=== PATIENT | male | born 1945 | race Caucasian/White ===

== ENCOUNTER → 2018-09-15 12:08 | Outpatient (CLI) | payer OTHER, MEDICARE, SELFPAY | PROVIDERS: Family Provider Family Medicine; PCP Family Medicine; Visit Provider Physician Assistant | DX: T14.8XXA Other injury of unspecified body region, initial encounter (principal) | CPT/HCPCS: 87070; 87077; 87147; 87186; 87205 ==

== ENCOUNTER → 2018-09-15 13:37 | Outpatient (CLI) | payer OTHER, MEDICARE, SELFPAY ==
--- NOTE | 2018-09-15 13:41 | DI.RAD.S_ITS ---
PROCEDURE: XR FOOT LT MIN 3V INDICATIONS: deep ulcer on 3rd digit TECHNIQUE: 3 views of the foot were acquired. COMPARISON: [facility], , FOOT 3V LEFT, 10/03/2017, 11:41. FINDINGS: Bones: Erosive changes noted in in the first metatarsal, medial and intermediate cuneiforms adjacent to the first MTP joint concerning for osteomyelitis versus late Charcot joint. Cortical loss noted in the tuft of the third distal phalange concerning for osteomyelitis. Calcaneal bone spurs Soft tissues: No tibiotalar joint effusion. Achilles tendon appears normal. No soft tissue gas. Soft tissue swelling noted in the third toe concerning for infectious cellulitis. IMPRESSION: 1. Left first metatarsal phalange joint osteomyelitis versus Charcot joint. 2. Cortical loss involving the third distal phalange concerning for osteomyelitis. Dictated by: Maira Mcclure MD, PhD on 09/15/2018 at 13:59 Approved by: Maira Mcclure MD, PhD on 09/15/2018 at 14:03
--- NOTE | 2018-09-18 | DI.RAD.S_ITS ---
PROCEDURE: XR TOE LT MIN 2V INDICATIONS: INTRA OPERATIVE 3RD TOE AMPUTATION TECHNIQUE: Single view of the toes acquired. COMPARISON: [facility], , FOOT 3V LEFT, 10/03/2017, 11:41. FINDINGS: Single limited intraoperative fluoroscopic view of the left forefoot demonstrates amputation of the 3rd toe at the level of the distal interphalangeal joint. There is an associated soft tissue defect. IMPRESSION: 1. Intraoperative fluoroscopic view demonstrates distal amputation of the 3rd toe. Dictated by: Lloyd Sethi M.D. on 09/18/2018 at 19:37 Approved by: Lloyd Sethi M.D. on 09/18/2018 at 19:38
== END ==
PROVIDERS: Visit Provider Physician Assistant
DX: L97.529 Non-pressure chronic ulcer of other part of left foot with unspecified severity (principal); Z89.422 Acquired absence of other left toe(s)
CPT/HCPCS: 73630; 87186

== ENCOUNTER 2018-09-15 16:29 | Inpatient (IN) | payer OTHER, MEDICARE, SELFPAY ==
--- NOTE | 2018-09-15 | DI.ECHO.S_ITS ---
[facility] +---------+ : : [address] : : : : [id number] : : : : Phone: [phone] Echocardiogram Report + + :Name: BALWINDER SINGH Study Date: 09/17/2018 Height: 73 in : :[facility] Exam Location: [facility] Weight: 267 lb : : Gender: Male BSA: 2.4 m2 : :: 1945 Age: 72 yrs BP: 150/88 mmHg: :Reason For Study: CHF : :Ordering Physician: Constantino : :Hospitalist Performed By: Patricia Villatoro : :Referring: Jeff SALVADOR E : + + Interpretation Summary Technically difficult study. Grossly normal left ventricle size with ejection fraction 60-65%. Grade I diastolic dysfunction Mildly dilated right ventricle with borderline reduced right ventricular systolic function. Moderately dilated left atrium. Mild aortic valve sclerosis. Moderate mitral annular calcification. Mildly dilated aortic root. Procedure: A two-dimensional transthoracic echocardiogram with color flow and Doppler was performed. The study quality was technically difficult. There is no prior echocardiogram noted for this patient. The patient was in normal sinus rhythm during the exam. Left Ventricle: The left ventricle is grossly normal size. The left ventricular ejection fraction is normal. The ejection fraction is estimated to be 60-65%. There are no obvious focal wall motion abnormalities noted but poor endocardial definition reduces the sensitivity for the detection of such. Diastolic parameters suggest a relaxation abnormality of the left ventricle, consistent with probable normal filling pressures. Right Ventricle: The right ventricle is mildly dilated. Right ventricular systolic function is borderline reduced. Atria: The left atrium is moderately dilated. Right atrial size is normal. There is no Doppler evidence for an interatrial shunt. Mitral Valve: The mitral valve leaflets appear mildly thickened, but open well. There is moderate mitral annular calcification. There is trace mitral regurgitation. Aortic Valve: The aortic valve is trileaflet. There is mild aortic valve sclerosis. The aortic valve opens well. No aortic regurgitation is present. Tricuspid Valve: The tricuspid valve is normal. There is trace tricuspid regurgitation. The right ventricular systolic pressure is estimated to be at least least 30 mmHg based on an estimated right atrial pressure of 3 mm Hg. Pulmonic Valve: The pulmonic valve is not well visualized. Great Vessels: The aortic root is mildly dilated. The ascending aorta could not be visualized. The aortic arch could not be visualized. The pulmonary is not well visualized. The IVC is of normal diameter and collapses greater than 50% with a sniff. This suggests a low right atrial pressure of 3 mm Hg. Pericardium/ Pleura There is no pericardial effusion. There is no pleural effusion. MMode/2D Measurements & Calculations LVIDd: 5.1 cm LVOT diam: 2.0 cm LVIDs: 3.5 cm Ao root diam: 4.1 cm FS: 30.6 % EPSS: 0.83 cm IVSd: 0.93 cm LVPWd: 1.2 cm LV ocampo. diameter/BSA (cm/m^2): 2.1 LV sys. diameter/BSA (cm/m^2): 1.5 LA A2 area: 27.3 cm2 RA long axis: 5.4 cm LA A4 area: 29.9 cm2 RA area: 20.8 cm2 LA length (vol): 6.5 cm RA vol: 68.0 ml LA vol: 106.2 ml RA : 28.0 ml/m2 LA vol index: 43.7 ml/m2 IVC diam: 1.1 cm RVD1 (basal): 4.6 cm RVD2 (mid): 4.4 cm TAPSE: 2.2 cm Doppler Measurements & Calculations Ao V2 max: 132.0 cm/sec LVOT Max Rafiq: 92.5 cm/sec Ao V2 mean: 81.5 cm/sec LV V1 max P.4 mmHg Ao max P.0 mmHg LV V1 VTI: 19.8 cm Ao mean P.2 mmHg FERNANDO(I,D): 2.6 cm2 Ao V2 VTI: 24.4 cm FERNANDO(V,D): 2.2 cm2 sev ratio: 0.81 FERNANDO indexed to BSA (cm^2/m^2): 1.1 MV E max rafiq: 73.5 cm/sec TR max rafiq: 260.4 cm/sec MV A max rafiq: 103.1 cm/sec TR max P.1 mmHg MV E/A: 0.71 PA V2 max: 66.6 cm/sec Med Peak E' Rafiq: 6.5 cm/sec PA V2 mean: 46.1 cm/sec E/E' med: 11.4 PA mean P.95 mmHg Lat Peak E' Rafiq: 6.9 cm/sec PA pr(Accel): 29.1 mmHg E/E' lat: 10.7 E/e' average: 11.0 MV dec time: 0.15 sec SV(LVOT): 63.3 ml Electronically signed by: Davy Carrillo on Reading Physician:09/17/2018 01:01 PM
[2018-09-15 16:36] VITALS: BP 165/85; PULSE 76; RESP 16; TEMP 36.6; O2SAT 96; BMI 36.0
--- NOTE | 2018-09-15 16:48 | ED.SKABFB ---
HPI - Skin/Abscess/Foreign Bdy General Chief complaint: Skin/Abscess/Foreign Body Stated complaint: Infection in foot Time Seen by Provider: 09/15/18 16:33 Source: patient Mode of arrival: ambulatory Limitations: no limitations History of Present Illness HPI narrative: The patient is a 72-year-old male who presents with left middle toe pain and injury. He was actually sent over from the walk-in clinic concern for osteomyelitis. He said he stepped it about a month to month and a half ago he does have some neuropathy in that foot he has ignored it. However progressively it has gotten worse. He has an ulcer with erythema. In increasing pain. He has not had any fever or chills. He does have some mild erythema spreading up his foot but is very minimal. MD complaint: lesion Onset (ago): month(s) Location: L foot (Middle toe) Severity: moderate Related Data Home Medications Medication Instructions Recorded Confirmed CHOLECALCIFEROL (D3-5) 5,000 iu PO QDAY #0 10/14/11 09/15/18 COENZYME Q10 (COQ10) 300 mg PO QDAY #0 10/14/11 09/15/18 Glucosamine Sulfate (#GLUCOSAMINE) 1,500 mg PO QDAY #0 10/14/11 09/15/18 HOMEOPATHIC SUBSTANCE (SAW 1 cap PO QDAY #0 10/14/11 09/15/18 PALMETTO) Hydroxytryptophan (#5-HTP) 100 mg PO QDAY #0 10/14/11 09/15/18 MAGNESIUM (#ELITE MAGNESIUM) 1 tab PO HS #0 10/14/11 09/15/18 POTASSIUM (#POTASSIUM) 99 mg PO QDAY #0 10/14/11 09/15/18 amlodipine 10 mg PO BID #0 10/14/11 09/15/18 Previous Rx's Medication Instructions Recorded cephalexin 500 mg capsule 500 mg PO BID 10 Days #20 cap 09/15/18 mupirocin 2 % topical ointment 1 applic TOP BID #30 gram 09/15/18 sulfamethoxazole 800 1 tab PO BID 10 Days #20 tab 09/15/18 mg-trimethoprim 160 mg tablet Allergies Allergy/AdvReac Type Severity Reaction Status Date / Time No Known Drug Allergies Allergy Verified 09/15/18 16:36 Review of Systems Review of Systems ROS Unobtainable: All systems reviewed & are unremarkable except as noted in HPI and below Constitutional Denies chills, Denies fever(s), Denies lethargy and Denies weakness Cardiovascular Denies chest pain, Denies irregular heart rhythm, Denies lightheadedness, Denies palpitations, Denies dyspnea, Denies dyspnea on exertion and Denies orthopnea Respiratory Denies cough, Denies dyspnea, Denies dyspnea on exertion and Denies wheezing Gastrointestinal Gastrointestinal: Denies abdominal pain, Denies change in bowel habits, Denies diarrhea, Denies nausea and Denies vomiting Musculoskeletal Reports as per HPI and Reports numbness Integumentary/Breasts Reports as per HPI, Reports non-healing lesions, Reports erythema, Reports skin ulcer and Reports wounds Neurologic Reports numbness and Denies weakness Endocrine Denies palpitations Allergic/Immunologic Denies wheezing PFSH Medical History Hypertension (Acute) Neuropathy (Acute) Social History Smoking Status: Never smoker alcohol intake: never substance use type: does not use Exam Initial Vital Signs Initial Vital Signs: Vital Signs Temperature 97.9 F 09/15/18 16:36 Pulse Rate 76 09/15/18 16:36 Respiratory Rate 16 09/15/18 16:36 Blood Pressure 165/85 H 09/15/18 16:36 Pulse Oximetry 96 09/15/18 16:36 GENERAL: Well-appearing alert male a alert oriented x3 HEENT: Head atraumatic,EOMI, pupils reactive, neck is supple CARDIOVASCULAR: Regular rate and rhythm without murmurs, rubs or gallops. RESPIRATORY: Breath sounds equal bilaterally, no wheezes rales or rhonchi. Speaks in full sentences no difficulty ABDOMEN: Soft, nontender. Normoactive bowel sounds all 4 quadrants. No guarding or rebound. EXTREMITIES: Normal range of motion, no clubbing or edema. Neurovascularly intact. Initially wearing walking boot on left foot.-which is removed in the ED NEUROLOGICAL: No gross deficits alert and oriented SKIN: Left middle toe erythematous ulcer on the plantar side about 2 cm x 2 cm, with erythema foul smelling. Callus on the dorsal side is, erythema of entire toe Course Orders Ordered: ED Orders 09/15/18 16:45 C-Reactive Protein Quant Stat Complete Blood Count AUTO DIFF Stat Comprehensive Metabolic Panel Stat Erythrocyte Sedimentation Rate Stat Procalcitonin Stat 09/15/18 17:05 Blood Culture Stat Lactate (Lactic Acid) Stat 09/15/18 17:40 Wound Culture and Gram Stain Stat Levofloxacin (Levaquin) 750 mg in 150 mls @ 100 mls/hr IV NOW YODIT Stop: 09/15/18 18:30 Last Admin: 09/15/18 17:18 Dose: 100 mls/hr Discontinued Medications Vancomycin HCl 1,500 mg/ (Sodium Chloride) 500 mls @ 333.333 mls/hr IV NOW ONE Stop: 09/15/18 16:46 Vital Signs - 8 hr 09/15/18 16:36 Temperature 97.9 F Pulse Rate 76 Respiratory Rate 16 Blood Pressure 165/85 H Pulse Oximetry 96 MDM - Skin/Abscess/Foreign Bdy Lab Data Attestation: I reviewed the patient's lab results. Result diagrams: 09/15/18 16:45 09/15/18 16:45 Lab Results 09/15/18 09/15/18 09/15/18 Range/Units 16:45 16:45 16:45 WBC 6.2 (4.5-11.0) X10^3/uL RBC 4.47 L (4.5-5.9) X10^6/uL Hgb 13.3 L (13.5-17.5) g/dL Hct 39.6 L (41-53) % MCV 88.7 (80-100) fL MCH 29.8 (26-34) PG MCHC 33.7 (30-36) % RDW 13.6 (11.6-14.8) % Plt Count 300 (150-400) X10^3/uL Neut % (Auto) 65.2 (50-75) % Lymph % (Auto) 21.3 L (25-40) % [place] % (Auto) 7.8 (3-14) % Eos % (Auto) 5.2 H (2-4) % Baso % (Auto) 0.5 (0-2) % Neut # (Auto) 4100 (5859-2373) /uL Lymph # (Auto) 1300 (0841-8019) /uL [place] # (Auto) 500 (0-900) /uL Eos # (Auto) 300 (0-450) /uL Baso # (Auto) 0 (0-100) /uL ESR 45 H (0-15) MM/HR Sodium 140 (137-145) mmol/L Potassium 3.7 (3.4-5.1) mmol/L Chloride 104 (98-107) mmol/L Carbon Dioxide 25 (22-32) mmol/L BUN 16 (9-20) mg/dL Creatinine 0.50 L (0.66-1.25) mg/dL Estimated GFR > 60.0 (>60) mL/min BUN/Creatinine Ratio 32.0 H (6-22) Glucose 145 H (80-110) mg/dL Lactate (0.7-2.1) mmol/L Calcium 8.7 (8.4-10.2) mg/dL Total Bilirubin 0.3 (0.2-1.3) mg/dL AST 29 (17-59) IU/L ALT 36 (21-72) IU/L Alkaline Phosphatase 102 (38-126) U/L C-Reactive Protein 2.7 H (<1.0) mg/dL Total Protein 7.4 (6.3-8.2) g/dL Albumin 4.1 (3.5-5.0) g/dL Globulin 3.3 (1.7-4.1) g/dL Albumin/Globulin Ratio 1.2 (1.0-2.8) Procalcitonin < 0.05 (<0.5) ng/mL 09/15/18 Range/Units 17:05 WBC (4.5-11.0) X10^3/uL RBC (4.5-5.9) X10^6/uL Hgb (13.5-17.5) g/dL Hct (41-53) % MCV (80-100) fL MCH (26-34) PG MCHC (30-36) % RDW (11.6-14.8) % Plt Count (150-400) X10^3/uL Neut % (Auto) (50-75) % Lymph % (Auto) (25-40) % [place] % (Auto) (3-14) % Eos % (Auto) (2-4) % Baso % (Auto) (0-2) % Neut # (Auto) (4121-5423) /uL Lymph # (Auto) (0888-9255) /uL [place] # (Auto) (0-900) /uL Eos # (Auto) (0-450) /uL Baso # (Auto) (0-100) /uL ESR (0-15) MM/HR Sodium (137-145) mmol/L Potassium (3.4-5.1) mmol/L Chloride (98-107) mmol/L Carbon Dioxide (22-32) mmol/L BUN (9-20) mg/dL Creatinine (0.66-1.25) mg/dL Estimated GFR (>60) mL/min BUN/Creatinine Ratio (6-22) Glucose (80-110) mg/dL Lactate 1.0 (0.7-2.1) mmol/L Calcium (8.4-10.2) mg/dL Total Bilirubin (0.2-1.3) mg/dL AST (17-59) IU/L ALT (21-72) IU/L Alkaline Phosphatase (38-126) U/L C-Reactive Protein (<1.0) mg/dL Total Protein (6.3-8.2) g/dL Albumin (3.5-5.0) g/dL Globulin (1.7-4.1) g/dL Albumin/Globulin Ratio (1.0-2.8) Procalcitonin (<0.5) ng/mL Imaging Data XR left foot: Radiologist's impression: PROCEDURE: XR FOOT LT MIN 3V INDICATIONS: deep ulcer on 3rd digit TECHNIQUE: 3 views of the foot were acquired. COMPARISON: [facility], , FOOT 3V LEFT, 10/03/2017, 11:41. FINDINGS: Bones: Erosive changes noted in in the first metatarsal, medial and intermediate cuneiforms adjacent to the first MTP joint concerning for osteomyelitis versus late Charcot joint. Cortical loss noted in the tuft of the third distal phalange concerning for osteomyelitis. Calcaneal bone spurs Soft tissues: No tibiotalar joint effusion. Achilles tendon appears normal. No soft tissue gas. Soft tissue swelling noted in the third toe concerning for infectious cellulitis. IMPRESSION: 1. Left first metatarsal phalange joint osteomyelitis versus Charcot joint. 2. Cortical loss involving the third distal phalange concerning for osteomyelitis. Dictated by: Maira Mcclure MD, PhD on 09/15/2018 at 13:59 MDM Narrative Medical decision making narrative: Patient has osteomyelitis increased CRP with evidence on x-ray. He does not appear septic. Levaquin vancomycin ordered. Dr. Quinonez accepts patient Wound culture pending Discharge Plan Departure Patient Disposition: Admitted As Inpatient Clinical Impression: Acute osteomyelitis of toe of left foot Admit Date/Time: 09/15/18 17:36 Admit Provider: Jeff Quinonez
[2018-09-15 17:08] LABS: Add Manual Diff / Slide Review NO; Basophils Absolute Auto 0 /uL (0-100); Basophils Percent Auto 0.5 % (0-2); Eosinophils Absolute Auto 300 /uL (0-450); Eosinophils Percent Auto 5.2 % (2-4); Hematocrit 39.6 % (41-53); Hemoglobin 13.3 g/dL (13.5-17.5); Lymphocytes Absolute Auto 1300 /uL (1100-4500); Lymphocytes Percent Auto 21.3 % (25-40); Mean Corpuscular HGB Conc 33.7 % (30-36); Mean Corpuscular Hemoglobin 29.8 PG (26-34); Mean Corpuscular Volume 88.7 fL (80-100); Monocytes Absolute Auto 500 /uL (0-900); Monocytes Percent Auto 7.8 % (3-14); Neutrophils Absolute Auto 4100 /uL (1500-7000); Neutrophils Percent Auto 65.2 % (50-75); Platelet Count 300 X10^3/uL (150-400); Red Blood Cell Count 4.47 X10^6/uL (4.5-5.9); Red Cell Distribution Width 13.6 % (11.6-14.8); White Blood Cell Count 6.2 X10^3/uL (4.5-11.0)
[2018-09-15 17:15] LABS: Alanine Aminotransferase 36 IU/L (21-72); Albumin 4.1 g/dL (3.5-5.0); Albumin Globulin Ratio 1.2 (1.0-2.8); Alkaline Phosphatase 102 U/L (38-126); Aspartate Aminotransferase 29 IU/L (17-59); Bilirubin Total 0.3 mg/dL (0.2-1.3); Blood Urea Nitrogen 16 mg/dL (9-20); C-Reactive Protein Quant 2.7 mg/dL (<1.0); Calcium 8.7 mg/dL (8.4-10.2); Carbon Dioxide 25 mmol/L (22-32); Chloride 104 mmol/L (98-107); Estimated Glomerular Filt Rate > 60.0 mL/min (>60); Globulin 3.3 g/dL (1.7-4.1); Glucose 145 mg/dL (80-110); HEMOLYSIS < 15 (0-50); Potassium 3.7 mmol/L (3.4-5.1); Sodium 140 mmol/L (137-145); Total Protein 7.4 g/dL (6.3-8.2)
[2018-09-15] MEDS: levoFLOXacin 750 MG/150 ML PIGGYBACK 100 MG IV (17:18)
[2018-09-15 17:27] LABS: Procalcitonin < 0.05 ng/mL (<0.5)
[2018-09-15 17:28] LABS: Erythrocyte Sedimentation Rate 45 MM/HR (0-15)
[2018-09-15 18:04] VITALS: BP 147/81; PULSE 75; RESP 20; O2SAT 98
--- NOTE | 2018-09-15 18:33 | P.HP_ITS ---
History of Present Illness Date Patient Seen: 09/15/18 Time Patient Seen: 18:31 Chief complaint: Infection in foot Narrative: Mr. Kay is a pleasant 72 year old man who has a smelly, tender 3rd toe ulcer on his left foot. 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 He thinks that he may have stubbed the toe in the middle of the night, as he is clumsy. He admits to pain with pressure to the ulcer, but no pain at rest. The pain is localized, non radiating, and not alleviated with NSAIDS. He does not have a history of diabetes, B12 deficiency, eats a varied diet. An xray in the ED shows erosion of the bone and osteomyelitis, but he does not have a leukocytosis. He has a history of a flexor tendon release in the adjacent #2 toe. Patient History Medical History Hypertension (Acute) Neuropathy (Acute) COPD (chronic obstructive pulmonary disease) (Chronic) Depression (Chronic) Comment: Flexor tendon release left 2nd toe Tracheostomy Right knee Replacement Family & Social History Tobacco & Substance use: Smoking Status Never smoker alcohol intake never Meds Home Medications Medication Instructions Recorded Confirmed Type CHOLECALCIFEROL (D3-5) 5,000 iu PO DAILY #0 10/14/11 09/15/18 History HOMEOPATHIC SUBSTANCE (SAW 1 cap PO QDAY #0 10/14/11 09/15/18 History PALMETTO) Hydroxytryptophan (#5-HTP) 100 mg PO QDAY #0 10/14/11 09/15/18 History MAGNESIUM (#ELITE MAGNESIUM) 1 tab PO HS #0 10/14/11 09/15/18 History amlodipine 10 mg PO DAILY #0 10/14/11 09/15/18 History cephalexin 500 mg capsule 500 mg PO BID 10 Days #20 cap 09/15/18 09/15/18 Rx mupirocin 1 applic TOPICAL BID 09/15/18 09/15/18 History sulfamethoxazole 800 1 tab PO BID 10 Days #20 tab 09/15/18 09/15/18 Rx mg-trimethoprim 160 mg tablet Allergies Allergy/AdvReac Type Severity Reaction Status Date / Time No Known Drug Allergies Allergy Verified 09/15/18 16:36 Review of Systems Constitutional Constitutional: Denies body ache(s), Denies chills, Denies fatigue, Denies fever (s) and Denies headache(s) ENT Ears, Nose, Mouth, and Throat: No headache(s) Cardiovascular Cardiovascular: Denies chest pain, Denies chest pain with activity and Reports shortness of breath with activity Respiratory Respiratory: Denies chest congestion, Denies cough and Reports dyspnea on exertion Gastrointestinal Gastrointestinal: Denies abdominal pain and Denies hematochezia Genitourinary Genitourinary: Denies hematuria and Reports urinary frequency Musculoskeletal Comments: Pain with walking and to palpation of the toe. Neurologic Neurologic: Reports system reviewed and no additional complaints, except as documented and Denies headache(s) Psychiatric Psychiatric: Reports depression (He states that he cannot notice improvement when he is on Zolaft) Endocrine Endocrine: Denies fatigue Hematologic/Lymphatic Hematologic/Lymphatic: Denies easy bleeding and Denies easy bruising Exam Vital Signs (past 8 hours): - 09/15/18 16:36 09/15/18 18:04 Temperature 97.9 F Pulse Rate 76 75 Respiratory Rate 16 20 Blood Pressure 165/85 H Blood Pressure [Right Arm] 147/81 H Pulse Oximetry 96 98 Oxygen Delivery Method Room Air Const General: cooperative and well developed Nutritional Appearance: obese Orientation: alert and oriented x3 HENMT Head: normal to inspection Ears: hearing grossly normal bilaterally Nose: external nose normal Mouth: oral mucosae normal Teeth and gingiva: dentures Throat: posterior oropharynx normal Eyes General: appearance normal, both eyes and all related structures Pupils: PERRL EOM: EOM intact bilaterally Direct ophthalmoscopy: normal light reflex Neck Neck: normal visual inspection Thyroid: thyroid normal Carotids: normal carotid upstroke Chest Chest: normal inspection of the chest Resp Effort & Inspection: normal respiratory effort and able to speak in complete sentences Auscultation: clear to auscultation bilaterally, no crackles, no rales, no rhonchi and no wheezes Cardio Palpation: normal PMI Rate: regular rate Rhythm: regular rhythm Heart Sounds: S1 normal, S2 normal, no click, no gallops, no murmurs and no rubs GI Inspection: normal to inspection Palpation: soft, no hepatosplenomegaly and No guarding Percussion: normal to percussion Auscultation: normal bowel sounds Extrem Other: Roughly a 2 cm ulcer with surrounding erythema and a 0.5mm eschar deep to bone on the third left toe at the tip. There is erythema to the ankle. Bilateral pitting edema 3+ to the knee. Objective Labs Result Diagrams: 09/16/18 04:38 09/16/18 04:38 Labs: Laboratory Results - last 24 hr 09/15/18 09/15/18 09/15/18 16:45 16:45 16:45 WBC 6.2 RBC 4.47 L Hgb 13.3 L Hct 39.6 L MCV 88.7 MCH 29.8 MCHC 33.7 RDW 13.6 Plt Count 300 Neut % (Auto) 65.2 Lymph % (Auto) 21.3 L [place] % (Auto) 7.8 Eos % (Auto) 5.2 H Baso % (Auto) 0.5 Neut # (Auto) 4100 Lymph # (Auto) 1300 [place] # (Auto) 500 Eos # (Auto) 300 Baso # (Auto) 0 ESR 45 H Sodium 140 Potassium 3.7 Chloride 104 Carbon Dioxide 25 BUN 16 Creatinine 0.50 L Estimated GFR > 60.0 BUN/Creatinine Ratio 32.0 H Glucose 145 H Lactate Calcium 8.7 Total Bilirubin 0.3 AST 29 ALT 36 Alkaline Phosphatase 102 C-Reactive Protein 2.7 H Total Protein 7.4 Albumin 4.1 Globulin 3.3 Albumin/Globulin Ratio 1.2 Procalcitonin < 0.05 09/15/18 17:05 WBC RBC Hgb Hct MCV MCH MCHC RDW Plt Count Neut % (Auto) Lymph % (Auto) [place] % (Auto) Eos % (Auto) Baso % (Auto) Neut # (Auto) Lymph # (Auto) [place] # (Auto) Eos # (Auto) Baso # (Auto) ESR Sodium Potassium Chloride Carbon Dioxide BUN Creatinine Estimated GFR BUN/Creatinine Ratio Glucose Lactate 1.0 Calcium Total Bilirubin AST ALT Alkaline Phosphatase C-Reactive Protein Total Protein Albumin Globulin Albumin/Globulin Ratio Procalcitonin Assessment & Plan Plan: Assessment/Plan Narrative: 1. Osteomyelitis - As shown on Xray. - IV flagyl, Vanco, Levoflaxicin for antibiotic coverage - podiatry consult - Wound culture pending 2. Neuropathy - A1C and B12 pending 3. hyperglycemia - A1c pending - serial glucose monitoring pending 3. COPD - No home medications for COPD, will address if he is symptomatic 4. Depression - Continue Zoloft once dose is clarified. 4. HTN - continue home amlodipine
[2018-09-15 18:43] VITALS: BP 156/83; PULSE 81; RESP 18; TEMP 37; O2SAT 96
[2018-09-15 18:50] VITALS: BMI 35.3
[2018-09-15] MEDS: VANCOMYCIN 1,500 MG in SODIUM CHLORIDE 0.9% 500 ML 333.333 ML IV (19:03)
[2018-09-15 19:05] LABS: Hemoglobin A1C% w Est Avg Glu 6.5 % (4.0-6.0)
[2018-09-15 20:09] LABS: Vitamin B12 385 pg/mL (239-931)
--- NOTE | 2018-09-15 20:11 | PC.NURSE ---
1829- Patient arrived via stretcher to room 102. Patient has a wound to the left foot third toe. Pictures obtained. The toe is erythemic and has a open ulcer. Patient states he injured the toe a month ago. Patient states his toe at this time is not painful, but pain is initially what brought him to the hospital. Patient getting the remainder of the IV levoquin from Emergency and then he will recieve the IV vancomycin ordered in the Emergency department. Patient advised to call for assist with getting to the bathroom and a bed cradle has been placed on the bed to keep blankets off his foot. Will monitor.
[2018-09-15] MEDS: metroNIDAZOLE 500 MG/100 ML PIGGYBACK 100 MG IV (20:59)
[2018-09-15 23:30] VITALS: O2SAT 96
[2018-09-15 23:32] VITALS: BP 133/87; PULSE 87; RESP 16; TEMP 36.9; O2SAT 96
[2018-09-16] MEDS: VANCOMYCIN 1,750 MG in SODIUM CHLORIDE 0.9% 500 ML 250 ML IV (02:59)
[2018-09-16 05:25] LABS: Add Manual Diff / Slide Review NO; Basophils Absolute Auto 0 /uL (0-100); Basophils Percent Auto 0.5 % (0-2); Eosinophils Absolute Auto 300 /uL (0-450); Eosinophils Percent Auto 6.1 % (2-4); Hematocrit 39.4 % (41-53); Hemoglobin 13.2 g/dL (13.5-17.5); Lymphocytes Absolute Auto 1500 /uL (1100-4500); Mean Corpuscular HGB Conc 33.6 % (30-36); Mean Corpuscular Hemoglobin 29.7 PG (26-34); Mean Corpuscular Volume 88.6 fL (80-100); Monocytes Absolute Auto 500 /uL (0-900); Monocytes Percent Auto 8.6 % (3-14); Neutrophils Absolute Auto 3100 /uL (1500-7000); Neutrophils Percent Auto 56.8 % (50-75); Platelet Count 276 X10^3/uL (150-400); Red Blood Cell Count 4.44 X10^6/uL (4.5-5.9); Red Cell Distribution Width 13.5 % (11.6-14.8); White Blood Cell Count 5.4 X10^3/uL (4.5-11.0)
[2018-09-16 05:32] LABS: BUN Creatinine Ratio 18.3 (6-22); Blood Urea Nitrogen 11 mg/dL (9-20); Calcium 8.5 mg/dL (8.4-10.2); Carbon Dioxide 29 mmol/L (22-32); Chloride 103 mmol/L (98-107); Estimated Glomerular Filt Rate > 60.0 mL/min (>60); Glucose 110 mg/dL (80-110); HEMOLYSIS < 15 (0-50); Magnesium 1.7 mg/dL (1.6-2.3); Potassium 3.6 mmol/L (3.4-5.1); Sodium 139 mmol/L (137-145)
[2018-09-16 05:54] LABS: Procalcitonin < 0.05 ng/mL (<0.5)
[2018-09-16 07:38] VITALS: BP 152/89; PULSE 67; RESP 16; TEMP 36.7; O2SAT 95
[2018-09-16 08:00] VITALS: O2SAT 98
[2018-09-16] MEDS: AMLODIPINE 5 MG TABLET 10 MG PO (09:11)
[2018-09-16] MEDS: ACETAMINOPHEN 325 MG TABLET 650 MG PO (09:11)
[2018-09-16] MEDS: METFORMIN HCL 500 MG TABLET PO (09:12)
--- NOTE | 2018-09-16 11:48 | CM.DANOTE ---
Discharge Planning/Care Management CM Discharge Assessment Start: 09/16/18 11:32 Freq: Status: Active Protocol: Document 09/16/18 11:32 (Rec: 09/16/18 11:48 [email or web address]) Discharge Planning Assessment Assigned Controls Designer JALIL Lo Advance Directives? No History Provided By Patient Medical Record Has Patient been admitted in last 30 No days? Prior Living Arrangements House Comment Patient resides in [place] with Spouse/Sun. 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 Is patient alert and oriented? Yes Caregiver for Another No Discharge Plan Home Transportation Arrangement Patient is hopeful to drive himself home as POV is currently at . Spouse is available to provide transportation if needed. Additional Comment Patient does not have an active PCP. PCP list was provided to patient. Comment Patient is being followed by hospitalist and surg. Dr. Siegel consulted; patient to have additional 24 of IV abx and have foot looked at again tomorrow. Patient aware of treatment plan and agreeable. Should patient require any home services lack of PCP may be a barrier. Whiteboard Updated in Patient Room with Yes name and ext. # of Controls Designer Review Status In Process Please Provide Date Initial DC 09/16/18 Assessment Was Performed Next Review Type Continued Stay Review
[2018-09-16 12:05] VITALS: BP 143/89
[2018-09-16] MEDS: VANCOMYCIN 1,500 MG in SODIUM CHLORIDE 0.9% 500 ML 333.333 ML IV (12:06)
--- NOTE | 2018-09-16 12:51 | PM.CN ---
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 He does have a remote history of previous back surgery by Dr. Solis with predominantly a right-sided radiculopathy. He noted progressive and increased pain into his left foot especially into his 3rd toe. His is a massage practitioner and she was concerned about swelling inflammation and a probable infection. He does not have a known history of diabetes but he has been monitored for it in the past. [facility] Medical History Hypertension (Acute) Neuropathy (Acute) COPD (chronic obstructive pulmonary disease) (Chronic) Depression (Chronic) Social History household members: spouse Smoking Status: Former smoker alcohol intake: never substance use type: does not use Meds Home Medications Medication Instructions Recorded Confirmed Type CHOLECALCIFEROL (D3-5) 5,000 iu PO DAILY #0 10/14/11 09/15/18 History HOMEOPATHIC SUBSTANCE (SAW 1 cap PO QDAY #0 10/14/11 09/15/18 History PALMETTO) Hydroxytryptophan (#5-HTP) 100 mg PO QDAY #0 10/14/11 09/15/18 History MAGNESIUM (#ELITE MAGNESIUM) 1 tab PO HS #0 10/14/11 09/15/18 History amlodipine 10 mg PO DAILY #0 10/14/11 09/15/18 History cephalexin 500 mg capsule 500 mg PO BID 10 Days #20 cap 09/15/18 09/15/18 Rx mupirocin 1 applic TOPICAL BID 09/15/18 09/15/18 History sulfamethoxazole 800 1 tab PO BID 10 Days #20 tab 09/15/18 09/15/18 Rx mg-trimethoprim 160 mg tablet Allergies Allergy/AdvReac Type Severity Reaction Status Date / Time No Known Drug Allergies Allergy Verified 09/15/18 16:36 Review of Systems Review of Systems Denies recent fevers or chills, notes that he has chronic numbness in bilateral feet, has not had any recent polydipsia or polyuria. Exam Vital Signs (past 8 hours): - 09/16/18 07:38 09/16/18 08:00 09/16/18 12:05 Temperature 98.1 F Pulse Rate 67 Respiratory Rate 16 Blood Pressure 152/89 H 143/89 H Pulse Oximetry 95 98 Oxygen Delivery Method Room Air Oxygen Flow Rate 0 Narrative Exam Narrative: HEENT is benign, lungs are clear, cor regular rate and rhythm, abdomen is obese and then the the benign, neck is supple, left lower extremity shows obvious fusiform swelling of the 3rd toe with mild erythema, there is moderate purulent drainage from the tip of the 3rd toe, forefoot and hindfoot is benign, adequate capillary refill, slightly diminished dorsalis pedis and posterior tibial pulse, significant numbness on in the plantar aspect of bilateral feet in a stocking distribution Objective Labs Result Diagrams: 09/16/18 04:38 09/16/18 04:38 Labs: Laboratory Results - last 24 hr 09/15/18 09/15/18 09/15/18 16:43 16:45 16:45 WBC 6.2 RBC 4.47 L Hgb 13.3 L Hct 39.6 L MCV 88.7 MCH 29.8 MCHC 33.7 RDW 13.6 Plt Count 300 Neut % (Auto) 65.2 Lymph % (Auto) 21.3 L [place] % (Auto) 7.8 Eos % (Auto) 5.2 H Baso % (Auto) 0.5 Neut # (Auto) 4100 Lymph # (Auto) 1300 [place] # (Auto) 500 Eos # (Auto) 300 Baso # (Auto) 0 ESR 45 H Sodium Potassium Chloride Carbon Dioxide BUN Creatinine Estimated GFR BUN/Creatinine Ratio Glucose Hemoglobin A1c Lactate Calcium Magnesium Total Bilirubin AST ALT Alkaline Phosphatase C-Reactive Protein Total Protein Albumin Globulin Albumin/Globulin Ratio Vitamin B12 385 Procalcitonin < 0.05 Nasal Screen MRSA (PCR) 09/15/18 09/15/18 09/15/18 16:45 16:45 17:05 WBC RBC Hgb Hct MCV MCH MCHC RDW Plt Count Neut % (Auto) Lymph % (Auto) [place] % (Auto) Eos % (Auto) Baso % (Auto) Neut # (Auto) Lymph # (Auto) [place] # (Auto) Eos # (Auto) Baso # (Auto) ESR Sodium 140 Potassium 3.7 Chloride 104 Carbon Dioxide 25 BUN 16 Creatinine 0.50 L Estimated GFR > 60.0 BUN/Creatinine Ratio 32.0 H Glucose 145 H Hemoglobin A1c 6.5 H Lactate 1.0 Calcium 8.7 Magnesium Total Bilirubin 0.3 AST 29 ALT 36 Alkaline Phosphatase 102 C-Reactive Protein 2.7 H Total Protein 7.4 Albumin 4.1 Globulin 3.3 Albumin/Globulin Ratio 1.2 Vitamin B12 Procalcitonin Nasal Screen MRSA (PCR) 09/15/18 09/16/18 09/16/18 20:29 04:38 04:38 WBC 5.4 RBC 4.44 L Hgb 13.2 L Hct 39.4 L MCV 88.6 MCH 29.7 MCHC 33.6 RDW 13.5 Plt Count 276 Neut % (Auto) 56.8 Lymph % (Auto) 28.0 [place] % (Auto) 8.6 Eos % (Auto) 6.1 H Baso % (Auto) 0.5 Neut # (Auto) 3100 Lymph # (Auto) 1500 [place] # (Auto) 500 Eos # (Auto) 300 Baso # (Auto) 0 ESR Sodium 139 Potassium 3.6 Chloride 103 Carbon Dioxide 29 BUN 11 Creatinine 0.60 L Estimated GFR > 60.0 BUN/Creatinine Ratio 18.3 Glucose 110 Hemoglobin A1c Lactate Calcium 8.5 Magnesium 1.7 Total Bilirubin AST ALT Alkaline Phosphatase C-Reactive Protein Total Protein Albumin Globulin Albumin/Globulin Ratio Vitamin B12 Procalcitonin Nasal Screen MRSA (PCR) Negative for mrsa 09/16/18 04:38 WBC RBC Hgb Hct MCV MCH MCHC RDW Plt Count Neut % (Auto) Lymph % (Auto) [place] % (Auto) Eos % (Auto) Baso % (Auto) Neut # (Auto) Lymph # (Auto) [place] # (Auto) Eos # (Auto) Baso # (Auto) ESR Sodium Potassium Chloride Carbon Dioxide BUN Creatinine Estimated GFR BUN/Creatinine Ratio Glucose Hemoglobin A1c Lactate Calcium Magnesium Total Bilirubin AST ALT Alkaline Phosphatase C-Reactive Protein Total Protein Albumin Globulin Albumin/Globulin Ratio Vitamin B12 Procalcitonin < 0.05 Nasal Screen MRSA (PCR) Left foot x-ray shows decreased cortical shadow on the 3rd toe distal phalanx. Assessment & Plan Plan: Assessment/Plan Narrative: Left foot 3rd toe infection. Probable left foot 3rd toe osteomyelitis. For recommended that we continue with IV antibiotics and a dressing change. He may benefit from a distal phalanx partial or complete excision if he fails antibiotics and dressing changes. I will ask either Dr. Mackay or Podiatry to evaluate him further tomorrow.
[2018-09-16] MEDS: HYDROCODONE/ACET 5/325 TABLET 1 TAB PO ×2 (14:27→23:31)
[2018-09-16 15:26] VITALS: BP 154/82; PULSE 76; RESP 18; TEMP 36.7; O2SAT 94
--- NOTE | 2018-09-16 16:45 | P.PN_ITS ---
Subjective Date Patient Seen: 09/16/18 Interval history: He is seen today to follow-up the osteomyelitis, diabetes mellitus type 2 and his hypertension. The CRP is 2.7 with an A1c of 6.5 and white blood count of 5.4. His B12 level is 385 the blood pressure is 152/89. The foot is looking much better. Exam Vital Signs (past 8 hours): - 09/16/18 12:05 09/16/18 15:26 Temperature 98.0 F Pulse Rate 76 Respiratory Rate 18 Blood Pressure 143/89 H 154/82 H Pulse Oximetry 94 Oxygen Delivery Method Room Air Oxygen Flow Rate 0 Narrative Exam Narrative: Alert and oriented x3 with no apparent distress. Heart is regular rate and rhythm without murmur. Lungs are clear to auscultation bilaterally. Extremities no ankle edema. Left foot diminishing redness and swelling. The adjacent toes are no longer swollen. The redness has receded from the lines marked yesterday. The 3rd toe remains swollen with yellowish drainage, an open/scabbed ulcer at the tip and redness. Objective Labs Result Diagrams: 09/16/18 04:38 09/16/18 04:38 Labs: Laboratory Results - last 24 hr 09/15/18 09/15/18 09/15/18 16:43 16:45 16:45 WBC 6.2 RBC 4.47 L Hgb 13.3 L Hct 39.6 L MCV 88.7 MCH 29.8 MCHC 33.7 RDW 13.6 Plt Count 300 Neut % (Auto) 65.2 Lymph % (Auto) 21.3 L [place] % (Auto) 7.8 Eos % (Auto) 5.2 H Baso % (Auto) 0.5 Neut # (Auto) 4100 Lymph # (Auto) 1300 [place] # (Auto) 500 Eos # (Auto) 300 Baso # (Auto) 0 ESR 45 H Sodium Potassium Chloride Carbon Dioxide BUN Creatinine Estimated GFR BUN/Creatinine Ratio Glucose Hemoglobin A1c Lactate Calcium Magnesium Total Bilirubin AST ALT Alkaline Phosphatase C-Reactive Protein Total Protein Albumin Globulin Albumin/Globulin Ratio Vitamin B12 385 Procalcitonin < 0.05 Nasal Screen MRSA (PCR) 09/15/18 09/15/18 09/15/18 16:45 16:45 17:05 WBC RBC Hgb Hct MCV MCH MCHC RDW Plt Count Neut % (Auto) Lymph % (Auto) [place] % (Auto) Eos % (Auto) Baso % (Auto) Neut # (Auto) Lymph # (Auto) [place] # (Auto) Eos # (Auto) Baso # (Auto) ESR Sodium 140 Potassium 3.7 Chloride 104 Carbon Dioxide 25 BUN 16 Creatinine 0.50 L Estimated GFR > 60.0 BUN/Creatinine Ratio 32.0 H Glucose 145 H Hemoglobin A1c 6.5 H Lactate 1.0 Calcium 8.7 Magnesium Total Bilirubin 0.3 AST 29 ALT 36 Alkaline Phosphatase 102 C-Reactive Protein 2.7 H Total Protein 7.4 Albumin 4.1 Globulin 3.3 Albumin/Globulin Ratio 1.2 Vitamin B12 Procalcitonin Nasal Screen MRSA (PCR) 09/15/18 09/16/18 09/16/18 20:29 04:38 04:38 WBC 5.4 RBC 4.44 L Hgb 13.2 L Hct 39.4 L MCV 88.6 MCH 29.7 MCHC 33.6 RDW 13.5 Plt Count 276 Neut % (Auto) 56.8 Lymph % (Auto) 28.0 [place] % (Auto) 8.6 Eos % (Auto) 6.1 H Baso % (Auto) 0.5 Neut # (Auto) 3100 Lymph # (Auto) 1500 [place] # (Auto) 500 Eos # (Auto) 300 Baso # (Auto) 0 ESR Sodium 139 Potassium 3.6 Chloride 103 Carbon Dioxide 29 BUN 11 Creatinine 0.60 L Estimated GFR > 60.0 BUN/Creatinine Ratio 18.3 Glucose 110 Hemoglobin A1c Lactate Calcium 8.5 Magnesium 1.7 Total Bilirubin AST ALT Alkaline Phosphatase C-Reactive Protein Total Protein Albumin Globulin Albumin/Globulin Ratio Vitamin B12 Procalcitonin Nasal Screen MRSA (PCR) Negative for mrsa 09/16/18 04:38 WBC RBC Hgb Hct MCV MCH MCHC RDW Plt Count Neut % (Auto) Lymph % (Auto) [place] % (Auto) Eos % (Auto) Baso % (Auto) Neut # (Auto) Lymph # (Auto) [place] # (Auto) Eos # (Auto) Baso # (Auto) ESR Sodium Potassium Chloride Carbon Dioxide BUN Creatinine Estimated GFR BUN/Creatinine Ratio Glucose Hemoglobin A1c Lactate Calcium Magnesium Total Bilirubin AST ALT Alkaline Phosphatase C-Reactive Protein Total Protein Albumin Globulin Albumin/Globulin Ratio Vitamin B12 Procalcitonin < 0.05 Nasal Screen MRSA (PCR) Assessment & Plan Plan: Assessment/Plan Narrative: 1. Osteomyelitis of distal left 3rd toe - As shown on Xray. G stain is Gram-positive cocci. - IV anco, levofloxacin for antibiotic coverage of this probable staph infection - podiatry consult discussed with Dr. Siegel - Wound culture identification pending 2. Neuropathy - A1C is 6.5 consistent with diabetes mellitus type 2. B12 level is normal. 3. hyperglycemia/prediabetes/DM 2 - A1c elevated at 6.5 - serial glucose monitoring pending - start on metformin daily 3. COPD - No home medications for COPD, will address if he is symptomatic 4. Depression - Continue Zoloft once dose is clarified. 4. HTN - continue home amlodipine. Edema has resolved.
[2018-09-16] MEDS: INSULIN ASPART 100 UNIT/ML INSULN PEN SUBCUT (17:08)
[2018-09-16 17:19] VITALS: O2SAT 96
[2018-09-16] MEDS: VANCOMYCIN 1,500 MG in SODIUM CHLORIDE 0.9% 500 ML 333 ML IV (19:39)
[2018-09-16] MEDS: levoFLOXacin 750 MG/150 ML PIGGYBACK 100 MG IV (21:05)
--- NOTE | 2018-09-16 21:45 | PC.NURSE ---
2130 - Pt up to bathroom. Reports that IV has blood in it, and may be leaking. IV site assessed, good flash, no discomfort with flush, no visible leaking. Monitor. Pt denies pain, Left foot, 3rd toe, no drainage. Erythema within marked borders. Call light in reach.
[2018-09-16 23:39] VITALS: BP 156/94; PULSE 81; RESP 18; TEMP 36.6; O2SAT 93
[2018-09-17] VITALS: O2SAT 93
[2018-09-17] MEDS: SODIUM CHLORIDE 0.9% FLUSH 10 ML IV ×3 (03:44→19:50)
[2018-09-17] MEDS: VANCOMYCIN 1,500 MG in SODIUM CHLORIDE 0.9% 500 ML 333 ML IV (03:44)
[2018-09-17 07:42] VITALS: BP 150/88; PULSE 88; RESP 16; TEMP 37.1; O2SAT 92
[2018-09-17 08:00] VITALS: O2SAT 98
[2018-09-17] MEDS: AMLODIPINE 5 MG TABLET 10 MG PO (08:51)
[2018-09-17] MEDS: METFORMIN HCL 500 MG TABLET PO (08:51)
[2018-09-17 12:00] VITALS: BP 150/88; PULSE 79; RESP 16; TEMP 36.6; O2SAT 93
--- NOTE | 2018-09-17 12:00 | CM.DPC ---
DCP Cont: Contacted patient's , Sun. Asked her about patient having a primary doctor. Stated that he had Dr. Farah, but he left the office. Asked her is another provider would be handling his care since he left. She stated that she was not sure, but [facility]. She stated that it has been about 7-8 months since patient has seen Dr. Farah. 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 She stated that he may return there. Discussed home health and significance of having a primary care provider. She stated, would depend on how he does, for he is wanting to get back to work. P: DCP to continue to follow and offer resources that patient may need. Chloe Copeland RN/[employer]
[2018-09-17] MEDS: CEFAZOLIN 2 GM/100 ML FROZ.PIGGY IV ×2 (12:22→19:48)
--- NOTE | 2018-09-17 14:41 | P.PN_ITS ---
Subjective Date Patient Seen: 09/17/18 Interval history: Mc Kay a 72-year-old male with a past medical history significant for hypertension, COPD, and peripheral neuropathy who presented from the walk-in clinic for left foot pain and was found to have osteomyelitis and was admitted for further management. Overnight: The patient was stable and there were no acute events. Today the patient is resting in bed comfortably and in no acute distress. He continues to endorse pain around his left 3rd toe. He otherwise denies headache , shortness of breath, chest pain, abdominal pain, nausea, vomiting, fever, chills, dysuria, diarrhea or constipation. He is voiding and eliminating without difficulty. He is up ambulating minimally. Exam Vital Signs (past 8 hours): - 09/17/18 07:42 09/17/18 08:00 09/17/18 12:00 Temperature 98.8 F 97.8 F Pulse Rate 88 79 Respiratory Rate 16 16 Blood Pressure 150/88 H 150/88 H Pulse Oximetry 92 98 93 Oxygen Delivery Method Room Air Oxygen Flow Rate 0 Narrative Exam Narrative: General: Older gentleman sitting in bed and in no acute distress, well- developed, well-nourished, appropriately interactive. HEENT: Normocephalic, atraumatic. External ears without defect. Pupils equal, round, and reactive to light. Anicteric sclerae, moist conjunctivae, and no lid lag. Pulmonary: Clear to auscultation bilaterally without crackles, wheezes, or rhonchi. Normal respiratory effort with no use of accessory muscles. Abdomen: Soft, bowel sounds present, nontender, nondistended. No hepatosplenomegaly or masses appreciated. Extremities: No clubbing or cyanosis. Mild erythema around left 3rd toe with callus, edema and mild pain to palpation. Left Charcot foot. Skin: Normal temperature, turgor, and texture; no rash, ulcers, or subcutaneous nodules appreciated. Neurological: Cranial nerves grossly intact. Psychiatric: Normal mood and affect. Alert and oriented to person, place, and time. Objective Labs Result Diagrams: 09/16/18 04:38 09/16/18 04:38 Assessment & Plan Plan: Assessment/Plan Narrative: Mc Kay a 72-year-old male with a past medical history significant for hypertension, COPD, and peripheral neuropathy who presented from the walk-in clinic for left foot pain and was found to have osteomyelitis and was admitted for further management. 1. Acute osteomyelitis of distal left 3rd toe, present on admission. Stable. -Left foot x-ray demonstrated osteomyelitis versus Charcot foot. Will pursue further imaging if orthopedic surgery does not pursue I&D versus amputation. -Discontinued vancomycin and levofloxacin. Per Dr. Wong of Infectious Disease, started cefazolin 2 g every 8 hr and depending upon course may need up to 3-4 weeks of IV antibiotics versus shorter course (10-14 days) if amputation is pursued. -Orthopedic surgery has been consulted. We appreciate their time and recommendations. -Wound culture grew MSSA. 2. Peripheral neuropathy, chronic, present on admission. Stable. -Hemoglobin A1C is 6.5% consistent with diabetes mellitus type 2. B12 level is normal. 3. New diagnosis of diabetes mellitus, type II, chronic, present on admission. Stable. -Initial Hemoglobin A1c elevated at 6.5%. -Serial glucose monitoring. -Continue metformin daily and low dose correctional scale insulin. 4. COPD, chronic, present on admission. Stable. -No home medications for COPD, will address if he is symptomatic. 5. Depression, chronic, present on admission. Stable. -Continue Zoloft once dose is clarified. 6. Hypertension, chronic, present on admission. Stable. -Continue home amlodipine. Disposition: Likely to discharge home with outpatient IV antibiotics (for 3-4 weeks verses shorter course if an amputation is pursued) versus [facility] facility after osteomyelitis has been addressed by Orthopedic surgery.
--- NOTE | 2018-09-17 15:06 | PM.PN.1 ---
Subjective Date Patient Seen: 09/17/18 Interval history: Patient seen bedside for left 3rd toe osteomyelitis. He has an open ulceration that appears superficial on the most distal aspect of this toe as well. No active purulent drainage at this time. There is positive edema/erythema in this toe, but according to the family this has improved. Denies fevers/chills, CP, or SOB. He is numb in this foot, so is having no pain. 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 Exam Vital Signs (past 8 hours): - 09/17/18 07:42 09/17/18 08:00 09/17/18 12:00 Temperature 98.8 F 97.8 F Pulse Rate 88 79 Respiratory Rate 16 16 Blood Pressure 150/88 H 150/88 H Pulse Oximetry 92 98 93 Oxygen Delivery Method Room Air Oxygen Flow Rate 0 Narrative Exam Narrative: WDWN NAD A&Ox3. Ulceration on the most distal aspect of the left 3rd toe that appears to be debrided recently. Callous formation on the distal aspect of his 2nd toe, and between the 3rd and 4th toes. No drainage could be expressed at this time. Objective Labs Result Diagrams: 09/16/18 04:38 09/16/18 04:38 Assessment & Plan Plan: Assessment/Plan Narrative: 1. Osteomyelitis of the left 3rd toe--dressing change BID with continuation of IV antibiotics. Pending consultation by either Dr. Hirsch or Dr. Boswell tomorrow to discuss surgical intervention. This case was also discussed with Dr. Siegel. Time Spent With Patient Time with patient: 15-24 minutes
--- NOTE | 2018-09-17 15:11 | P.PN_ITS ---
Subjective Date Patient Seen: 09/17/18 Interval history: Patient seen bedside for left 3rd toe osteomyelitis. He has an open ulceration that appears superficial on the most distal aspect of this toe as well. No active purulent drainage at this time. There is positive edema /erythema in this toe, but according to the family this has improved. Denies fevers/chills, CP, or SOB. He is numb in this foot, so is having no pain. 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 Exam Vital Signs (past 8 hours): - 09/17/18 07:42 09/17/18 08:00 09/17/18 12:00 Temperature 98.8 F 97.8 F Pulse Rate 88 79 Respiratory Rate 16 16 Blood Pressure 150/88 H 150/88 H Pulse Oximetry 92 98 93 Oxygen Delivery Method Room Air Oxygen Flow Rate 0 Narrative Exam Narrative: WDWN NAD A&Ox3. Ulceration on the most distal aspect of the left 3rd toe that appears to be debrided recently. Callous formation on the distal aspect of his 2nd toe, and between the 3rd and 4th toes. No drainage could be expressed at this time. Objective Labs Result Diagrams: 09/16/18 04:38 09/16/18 04:38 Assessment & Plan Plan: Assessment/Plan Narrative: 1. Osteomyelitis of the left 3rd toe--dressing change BID with continuation of IV antibiotics. Pending consultation by either Dr. Hirsch or Dr. Boswell tomorrow to discuss surgical intervention. This case was also discussed with Dr. Siegel. Time Spent With Patient Time with patient: 15-24 minutes
[2018-09-17 15:32] VITALS: BP 148/78; PULSE 77; RESP 20; TEMP 36.8; O2SAT 95
[2018-09-17] MEDS: LACTOBACILLUS ACIDOPHILUS TABLET 1 EACH PO (17:12)
--- NOTE | 2018-09-17 19:08 | P.CONS_ITS ---
History of Present Illness Date Patient Seen: 09/17/18 Time Patient Seen: 17:59 Chief complaint: Infection in foot Reason for consult: Osteomyelitis left 3rd toe Requesting provider: Bernarda Siegel Narrative: Patient is a 72-year-old male that presents with left foot and toe cellulitis and ulceration. Patient has an relatively new diagnosis of diabetes with hemoglobin A1c 6.5. He does have a past medical history significant for back problems and numbness and peripheral neuropathy expression involving the left foot. He has evidence of a Charcot midfoot but is unsure of this diagnosis he does report. Of trauma approximately 1 year ago. He has been using custom orthotics but not since the suppose a trauma and ft shape change to his midfoot. He has previously seen Dr. Manasa MANCINI in the past but has not seen him recently and has not sought care since he developed ulceration on his toe. 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 States he developed a blister that became an ulcer. He noticed the swelling and redness but just try to make it until he came home this weekend. Upon reporting home his noticed the swelling and erythema and encouraged him to seek care. He presented to urgent care and then was referred to the ER. CRP is 2.7. He has been treated with IV antibiotics since being in the hospital. He denies any history of vascular problems heart problems or pulmonary problems. [facility] Medical History Hypertension (Acute) Neuropathy (Acute) COPD (chronic obstructive pulmonary disease) (Chronic) Depression (Chronic) Social History household members: spouse Smoking Status: Former smoker alcohol intake: never substance use type: does not use Meds Home Medications Medication Instructions Recorded Confirmed Type CHOLECALCIFEROL (D3-5) 5,000 iu PO DAILY #0 10/14/11 09/15/18 History HOMEOPATHIC SUBSTANCE (SAW 1 cap PO QDAY #0 10/14/11 09/15/18 History PALMETTO) Hydroxytryptophan (#5-HTP) 100 mg PO QDAY #0 10/14/11 09/15/18 History MAGNESIUM (#ELITE MAGNESIUM) 1 tab PO HS #0 10/14/11 09/15/18 History amlodipine 10 mg PO DAILY #0 10/14/11 09/15/18 History cephalexin 500 mg capsule 500 mg PO BID 10 Days #20 cap 09/15/18 09/15/18 Rx mupirocin 1 applic TOPICAL BID 09/15/18 09/15/18 History sulfamethoxazole 800 1 tab PO BID 10 Days #20 tab 09/15/18 09/15/18 Rx mg-trimethoprim 160 mg tablet Allergies Allergy/AdvReac Type Severity Reaction Status Date / Time No Known Drug Allergies Allergy Verified 09/15/18 16:36 Review of Systems Review of Systems Patient dorsal swelling and pain at his left 3rd toe otherwise denies any fevers chills nausea or vomiting. Denies any shortness of breath. Denies any changes in bowels or bladder habits. Does endorse numbness that is chronic in the left lower extremity All systems reviewed & are unremarkable except as noted in HPI and below Exam Vital Signs (past 8 hours): - 09/17/18 12:00 09/17/18 15:32 Temperature 97.8 F 98.3 F Pulse Rate 79 77 Respiratory Rate 16 20 Blood Pressure 150/88 H 148/78 H Pulse Oximetry 93 95 Oxygen Delivery Method Room Air Oxygen Flow Rate 0 Narrative Exam Narrative: Alert oriented male in no acute distress sitting up in bed Respiratory exam: Unlabored on room air lungs clear to auscultation bilaterally CV exam: Regular rate and rhythm Abdominal exam: Nontender Musculoskeletal examination: Bilateral upper extremities without any gross deformities sensation grossly intact to light touch. Right lower extremity: Grossly normal alignment no swelling no erythema no signs or symptoms of infection. He demonstrates active dorsiflexion plantar flexion. 2+ dorsalis pedis and posterior tibialis pulse. No lesions. Fungal nails present. Left lower extremity: Fungal nails. Moderate pes planus deformity. Palpable dorsalis pedis pulse and posterior tibialis pulse. Brisk capillary refill. Stocking-glove peripheral neuropathy. 5/5 dorsiflexion plantar flexion. In bearing callus 2nd toe. Open ulceration left 3rd toe distal phalanx likely probes to bone. Mild drainage. No malodor. Moderate swelling. Previous cellulitis a demarcation up around the ankle but erythema appears to resolve significantly from this as there is minimal erythema around the toe but the remainder of the foot and ankle have normal appearance. Calf is soft. Dorsiflexion past neutral. Objective Labs Result Diagrams: 09/16/18 04:38 09/16/18 04:38 Assessment & Plan Plan: Assessment/Plan Narrative: 1. Acute Left foot 3rd toe distal phalanx osteomyelitis and ulceration secondary to peripheral neuropathy and diabetes 2. Charcot midfoot chronic Plan: Regarding the patient's left 3rd toe distal phalanx osteomyelitis we discussed potential treatments which would be I and D bone biopsy and intravenous antibiotics versus distal phalanx amputation a likely much shorter course of antibiotics and primary closure. Patient is elected for amputation primary closure. We will plan to do this in the next day or so hopefully tomorrow evening the patient is in the hospital. He will remain on IV antibiotics. Previous culture swabs showing gram-positive organisms. We discussed the risks benefits and alternatives to the surgical procedure. We also discussed risk for recurrence and new ulcerations with neuropathy and diabetes. The patient has good pulses and demonstrating appropriate vascular flow. We also discussed the importance of custom accommodative orthotics and diabetic shoes to prevent ulceration around the patient's Charcot foot. Patient has no current primary care provider. We discussed the importance of establishing this and good diabetic control. Patient understands and agrees with the plan. We will plan tentatively for operation tomorrow evening at 5:30 p.m. patient will need to be NPO approximately 8 hr prior to surgery. He will continue on IV antibiotics. Time Spent With Patient Time with patient: less than 15 minutes
[2018-09-17] MEDS: HYDROCODONE/ACET 5/325 TABLET 1 TAB PO (19:49)
[2018-09-18] VITALS (12 sets, daily range): BP systolic 121–159; BP diastolic 76–92; PULSE 79–108; RESP 16–20; TEMP 36.4–37.6; O2SAT 93–97; BMI 35.3
--- NOTE | 2018-09-18 | PATH_ITS ---
[facility] Accession Number: [id number] . 01 Material submitted: . PART A: LEFT THIRD TOE DISTAL PHALANX BONE PART B: LEFT THIRD TOE DISTAL PHALANX TISSUE . 02 Diagnosis: A) Bone, Left 3rd Toe, Distal Phalanx Bone, Amputation: Bone margin with remodelling lamellar bone and marrow fibrosis. No evidence of acute osteomyelitis at margin. . B) Bone, Left 3rd Toe, Distal Phalanx Tissue, Amputation: Ulcerated skin and soft tissue with reactive stromal changes. Fragments of lamellar bome with with chronic active inflammation, consistent with acute osteomyelitis. Histologically viable margins of resection. No evidence of neoplasm. [facility]09[facility]21[facility]2018 . 02 Comment: As part of routine quality consultant, Dr. Colon has reviewed this case and agrees with the above diagnosis. The findings were discussed with Dr. Kay by Dr. Stefan Mendiola on 09/21/18 at 1 PM. . 02 Electronically signed: . Stefan Mendiola MD, PhD, Pathologist NPI- [id number] . 01 Gross description: . A. Received in formalin, labeled left third toe distal phalanx bone, is a slice of bone (1.0 x 1.0 x 0.5 cm). The bone is hard and cannot be sliced with a scalpel. The resection margin is inked black. Submitted intact en face in cassette A1. Note: The bone section has been decalcified. B. Received in formalin, labeled left third toe distal phalanx tissue, is a skin and soft tissue of the tip of a toe (2.1 cm AP, 0.8 cm SI, 2.2 cm ML) with the toenail present. A osman-beyer ulcer (0.7 x 0.6 cm) involves the central anterior aspect, 0.6 cm directly beneath the toenail and 0.6 cm from the inferior skin and soft tissue resection margins. The remaining skin is osman and flaky. Ink code: black- superior; orange-inferior. Section code: (B1) skin and soft tissue resection margin; (B2) ulcer, enrollment representative. ([id number]) /[facility] . 02 Pathologist provided ICD-10: M86.9 . 02 CPT . 545278, [id number], [id number] Performed at: 01 [facility] [address] [place] [address] [id number] MD Lloyd Jackson MD Phone: [phone] Performed at: 02 [facility] [address] [place] [address] [id number] MD Marisela Colon MD Phone: [phone]
[2018-09-18] MEDS: CEFAZOLIN 2 GM/100 ML FROZ.PIGGY IV ×3 (04:18→20:14)
[2018-09-18 05:25] LABS: Add Manual Diff / Slide Review NO; Basophils Absolute Auto 0 /uL (0-100); Basophils Percent Auto 0.5 % (0-2); Eosinophils Absolute Auto 300 /uL (0-450); Eosinophils Percent Auto 3.9 % (2-4); Hematocrit 41.5 % (41-53); Lymphocytes Absolute Auto 1900 /uL (1100-4500); Lymphocytes Percent Auto 25.4 % (25-40); Mean Corpuscular HGB Conc 33.8 % (30-36); Mean Corpuscular Hemoglobin 29.9 PG (26-34); Mean Corpuscular Volume 88.5 fL (80-100); Monocytes Absolute Auto 700 /uL (0-900); Monocytes Percent Auto 8.7 % (3-14); Neutrophils Absolute Auto 4600 /uL (1500-7000); Neutrophils Percent Auto 61.5 % (50-75); Platelet Count 297 X10^3/uL (150-400); Red Blood Cell Count 4.69 X10^6/uL (4.5-5.9); Red Cell Distribution Width 13.4 % (11.6-14.8); White Blood Cell Count 7.6 X10^3/uL (4.5-11.0)
[2018-09-18 05:26] LABS: Alanine Aminotransferase 35 IU/L (21-72); Albumin 3.7 g/dL (3.5-5.0); Albumin Globulin Ratio 1.2 (1.0-2.8); Alkaline Phosphatase 86 U/L (38-126); Aspartate Aminotransferase 23 IU/L (17-59); BUN Creatinine Ratio 21.7 (6-22); Bilirubin Total 0.3 mg/dL (0.2-1.3); Blood Urea Nitrogen 13 mg/dL (9-20); Calcium 8.9 mg/dL (8.4-10.2); Carbon Dioxide 28 mmol/L (22-32); Chloride 101 mmol/L (98-107); Estimated Glomerular Filt Rate > 60.0 mL/min (>60); Globulin 3.2 g/dL (1.7-4.1); Glucose 135 mg/dL (80-110); HEMOLYSIS < 15 (0-50); Magnesium 1.7 mg/dL (1.6-2.3); Potassium 3.4 mmol/L (3.4-5.1); Sodium 138 mmol/L (137-145); Total Protein 6.9 g/dL (6.3-8.2)
--- NOTE | 2018-09-18 07:25 | PM.PN.1 ---
Subjective Date Patient Seen: 09/18/18 Interval history: Mc Kay a 72-year-old male with a past medical history significant for hypertension, COPD, and peripheral neuropathy who presented from the walk-in clinic for left foot pain and was found to have osteomyelitis and was admitted for further management. Overnight: The patient was stable and there were no acute events. The patient complains of headache at the same time every night which was relieved with as-needed pain medication. Today the patient is resting in bed comfortably and in no acute distress. He denies any pain in his left 3rd toe today. He denies chest pain, abdominal pain, nausea, vomiting, fever, chills, dysuria, diarrhea or constipation. He does endorse mild subjective shortness of breath which is chronic and related to his COPD. He is voiding and eliminating (although he feels mildly constipated) without difficulty. He is up ambulating minimally. Exam Vital Signs (past 8 hours): - 09/18/18 01:00 Temperature 99.6 F Pulse Rate 79 Respiratory Rate 17 Blood Pressure 143/76 H Pulse Oximetry 95 Oxygen Delivery Method Room Air Oxygen Flow Rate 0 Narrative Exam Narrative: General: Older gentleman sitting in bed and in no acute distress, well-developed, well-nourished, appropriately interactive. HEENT: Normocephalic, atraumatic. External ears without defect. Pupils equal, round, and reactive to light. Anicteric sclerae, moist conjunctivae, and no lid lag. Pulmonary: Clear to auscultation bilaterally without crackles, wheezes, or rhonchi. Normal respiratory effort with no use of accessory muscles. Abdomen: Soft, bowel sounds present, nontender, nondistended. No hepatosplenomegaly or masses appreciated. Extremities: No clubbing or cyanosis. Mild erythema around left 3rd toe with callus, edema improved without pain to palpation today. Left Charcot foot. Skin: Normal temperature, turgor, and texture; no rash, ulcers, or subcutaneous nodules appreciated. Neurological: Cranial nerves grossly intact. Psychiatric: Normal mood and affect. Alert and oriented to person, place, and time. Objective Labs Result Diagrams: 09/20/18 08:25 09/20/18 08:25 Labs: Laboratory Results - last 24 hr 09/18/18 09/18/18 04:49 04:49 WBC 7.6 RBC 4.69 Hgb 14.0 Hct 41.5 MCV 88.5 MCH 29.9 MCHC 33.8 RDW 13.4 Plt Count 297 Neut % (Auto) 61.5 Lymph % (Auto) 25.4 [place] % (Auto) 8.7 Eos % (Auto) 3.9 Baso % (Auto) 0.5 Neut # (Auto) 4600 Lymph # (Auto) 1900 [place] # (Auto) 700 Eos # (Auto) 300 Baso # (Auto) 0 Sodium 138 Potassium 3.4 Chloride 101 Carbon Dioxide 28 BUN 13 Creatinine 0.60 L Estimated GFR > 60.0 BUN/Creatinine Ratio 21.7 Glucose 135 H Calcium 8.9 Magnesium 1.7 Total Bilirubin 0.3 AST 23 ALT 35 Alkaline Phosphatase 86 Total Protein 6.9 Albumin 3.7 Globulin 3.2 Albumin/Globulin Ratio 1.2 Assessment & Plan Plan: Assessment/Plan Narrative: Mc Kay a 72-year-old male with a past medical history significant for hypertension, COPD, and peripheral neuropathy who presented from the walk-in clinic for left foot pain and was found to have osteomyelitis and was admitted for further management. 1. Acute osteomyelitis of distal left 3rd toe, present on admission. Stable. -Left foot x-ray demonstrated osteomyelitis versus Charcot foot. Will pursue further imaging if orthopedic surgery does not pursue I&D versus amputation. -Discontinued vancomycin and levofloxacin. Per Dr. Wong of Infectious Disease, started cefazolin 2 g every 8 hr and depending upon course may need up to 3-4 weeks of IV antibiotics versus shorter course (10-14 days) if amputation is pursued. -Orthopedic surgery has been consulted. We appreciate their time and recommendations. -Wound culture grew MSSA. Blood cultures have been negative to date. 2. Peripheral neuropathy, chronic, present on admission. Stable. -Hemoglobin A1C is 6.5% consistent with diabetes mellitus type 2. B12 level is normal. 3. New diagnosis of diabetes mellitus, type II, chronic, present on admission. Stable. -Initial Hemoglobin A1c elevated at 6.5%. -Serial glucose monitoring. -Discontinued metformin for now as patient is scheduled for surgery and blood glucose has been trensding low. Continue low dose correctional scale insulin if needed and ACHS blood glucose checks. 4. COPD, chronic, present on admission. Stable. -No home medications for COPD, will address if he is symptomatic. 5. Depression, chronic, present on admission. Stable. -Continue Zoloft once dose is clarified by patient. 6. Hypertension, chronic, present on admission. Stable. -Continue home amlodipine. Disposition: Likely to discharge home with outpatient IV antibiotics (for 3-4 weeks verses shorter course if an amputation is pursued) versus [facility] facility after osteomyelitis has been addressed by Orthopedic surgery.
--- NOTE | 2018-09-18 07:28 | P.PN_ITS ---
Subjective Date Patient Seen: 09/18/18 Interval history: Mc Kay a 72-year-old male with a past medical history significant for hypertension, COPD, and peripheral neuropathy who presented from the walk-in clinic for left foot pain and was found to have osteomyelitis and was admitted for further management. Overnight: The patient was stable and there were no acute events. The patient complains of headache at the same time every night which was relieved with as- needed pain medication. Today the patient is resting in bed comfortably and in no acute distress. He denies any pain in his left 3rd toe today. He denies chest pain, abdominal pain , nausea, vomiting, fever, chills, dysuria, diarrhea or constipation. He does endorse mild subjective shortness of breath which is chronic and related to his COPD. He is voiding and eliminating (although he feels mildly constipated) without difficulty. He is up ambulating minimally. Exam Vital Signs (past 8 hours): - 09/18/18 01:00 Temperature 99.6 F Pulse Rate 79 Respiratory Rate 17 Blood Pressure 143/76 H Pulse Oximetry 95 Oxygen Delivery Method Room Air Oxygen Flow Rate 0 Narrative Exam Narrative: General: Older gentleman sitting in bed and in no acute distress, well- developed, well-nourished, appropriately interactive. HEENT: Normocephalic, atraumatic. External ears without defect. Pupils equal, round, and reactive to light. Anicteric sclerae, moist conjunctivae, and no lid lag. Pulmonary: Clear to auscultation bilaterally without crackles, wheezes, or rhonchi. Normal respiratory effort with no use of accessory muscles. Abdomen: Soft, bowel sounds present, nontender, nondistended. No hepatosplenomegaly or masses appreciated. Extremities: No clubbing or cyanosis. Mild erythema around left 3rd toe with callus, edema improved without pain to palpation today. Left Charcot foot. Skin: Normal temperature, turgor, and texture; no rash, ulcers, or subcutaneous nodules appreciated. Neurological: Cranial nerves grossly intact. Psychiatric: Normal mood and affect. Alert and oriented to person, place, and time. Objective Labs Result Diagrams: 09/20/18 08:25 09/20/18 08:25 Labs: Laboratory Results - last 24 hr 09/18/18 09/18/18 04:49 04:49 WBC 7.6 RBC 4.69 Hgb 14.0 Hct 41.5 MCV 88.5 MCH 29.9 MCHC 33.8 RDW 13.4 Plt Count 297 Neut % (Auto) 61.5 Lymph % (Auto) 25.4 [place] % (Auto) 8.7 Eos % (Auto) 3.9 Baso % (Auto) 0.5 Neut # (Auto) 4600 Lymph # (Auto) 1900 [place] # (Auto) 700 Eos # (Auto) 300 Baso # (Auto) 0 Sodium 138 Potassium 3.4 Chloride 101 Carbon Dioxide 28 BUN 13 Creatinine 0.60 L Estimated GFR > 60.0 BUN/Creatinine Ratio 21.7 Glucose 135 H Calcium 8.9 Magnesium 1.7 Total Bilirubin 0.3 AST 23 ALT 35 Alkaline Phosphatase 86 Total Protein 6.9 Albumin 3.7 Globulin 3.2 Albumin/Globulin Ratio 1.2 Assessment & Plan Plan: Assessment/Plan Narrative: Mc Kay a 72-year-old male with a past medical history significant for hypertension, COPD, and peripheral neuropathy who presented from the walk-in clinic for left foot pain and was found to have osteomyelitis and was admitted for further management. 1. Acute osteomyelitis of distal left 3rd toe, present on admission. Stable. -Left foot x-ray demonstrated osteomyelitis versus Charcot foot. Will pursue further imaging if orthopedic surgery does not pursue I&D versus amputation. -Discontinued vancomycin and levofloxacin. Per Dr. Wong of Infectious Disease, started cefazolin 2 g every 8 hr and depending upon course may need up to 3-4 weeks of IV antibiotics versus shorter course (10-14 days) if amputation is pursued. -Orthopedic surgery has been consulted. We appreciate their time and recommendations. -Wound culture grew MSSA. Blood cultures have been negative to date. 2. Peripheral neuropathy, chronic, present on admission. Stable. -Hemoglobin A1C is 6.5% consistent with diabetes mellitus type 2. B12 level is normal. 3. New diagnosis of diabetes mellitus, type II, chronic, present on admission. Stable. -Initial Hemoglobin A1c elevated at 6.5%. -Serial glucose monitoring. -Discontinued metformin for now as patient is scheduled for surgery and blood glucose has been trensding low. Continue low dose correctional scale insulin if needed and ACHS blood glucose checks. 4. COPD, chronic, present on admission. Stable. -No home medications for COPD, will address if he is symptomatic. 5. Depression, chronic, present on admission. Stable. -Continue Zoloft once dose is clarified by patient. 6. Hypertension, chronic, present on admission. Stable. -Continue home amlodipine. Disposition: Likely to discharge home with outpatient IV antibiotics (for 3-4 weeks verses shorter course if an amputation is pursued) versus [facility] facility after osteomyelitis has been addressed by Orthopedic surgery.
--- NOTE | 2018-09-18 08:42 | P.PN_ITS ---
Subjective Date Patient Seen: 09/18/18 Time Patient Seen: 08:40 Interval history: Hospital day 3 with history of left 3rd toe osteomyelitis. He initially had orthopedic consult done by Dr. Siegel on 09/16/2018. He was seen by Dr. Hirsch on 09/17/2018. Plan is for amputation of 3rd toe later today by Dr. Hirsch. Hospitalist did consult Dr. Wong, infectious disease physician, yesterday. Patient's antibiotic changed from level Floxin and vancomycin to cefazolin 2 g q.8h. Exam Vital Signs (past 8 hours): - 09/18/18 01:00 09/18/18 07:43 Temperature 99.6 F Pulse Rate 79 Respiratory Rate 17 Blood Pressure 143/76 H Pulse Oximetry 95 95 Oxygen Delivery Method Room Air Oxygen Flow Rate 0 Narrative Exam Narrative: Alert, oriented no acute distress resting in bed. Left foot. Significant decrease in redness and swelling. Dressing to left 3rd toe is dry. Objective Labs Result Diagrams: 09/18/18 04:49 09/18/18 04:49 Labs: Laboratory Results - last 24 hr 09/18/18 09/18/18 04:49 04:49 WBC 7.6 RBC 4.69 Hgb 14.0 Hct 41.5 MCV 88.5 MCH 29.9 MCHC 33.8 RDW 13.4 Plt Count 297 Neut % (Auto) 61.5 Lymph % (Auto) 25.4 [place] % (Auto) 8.7 Eos % (Auto) 3.9 Baso % (Auto) 0.5 Neut # (Auto) 4600 Lymph # (Auto) 1900 [place] # (Auto) 700 Eos # (Auto) 300 Baso # (Auto) 0 Sodium 138 Potassium 3.4 Chloride 101 Carbon Dioxide 28 BUN 13 Creatinine 0.60 L Estimated GFR > 60.0 BUN/Creatinine Ratio 21.7 Glucose 135 H Calcium 8.9 Magnesium 1.7 Total Bilirubin 0.3 AST 23 ALT 35 Alkaline Phosphatase 86 Total Protein 6.9 Albumin 3.7 Globulin 3.2 Albumin/Globulin Ratio 1.2 Assessment & Plan Plan: Assessment/Plan Narrative: Plan: Patient will be NPO after breakfast and plan for left 3rd toe amputation by Dr. Hirsch later today. Continue follow-up by hospitalist.
[2018-09-18] MEDS: AMLODIPINE 5 MG TABLET 10 MG PO (08:48)
[2018-09-18] MEDS: POLYETHYLENE GLYCOL 3350 17 GM POWD.PACK PO (08:48)
[2018-09-18] MEDS: DOCUSATE 100 MG CAPSULE PO ×2 (08:48→20:14)
[2018-09-18] MEDS: SODIUM CHLORIDE 0.9% FLUSH 10 ML IV (08:49)
[2018-09-18] MEDS: LACTOBACILLUS ACIDOPHILUS TABLET 1 EACH PO (08:49)
[2018-09-18] MEDS: DEXTROSE 5%-0.9% NS 1,000 ML 60 ML IV (13:29)
--- NOTE | 2018-09-18 17:15 | PC.NURSE ---
Addendum entered by Asmita Wolff R.N. 09/18/18 23:33: 1835 - Patient returned from PACU. Alert and oriented with pleasant affect. Denies pain at this time. Dressing to left foot C/D/I. Original Note: [id number] - Patient taken to surgery by surgical nurses. Patient left floor in good condition.
[2018-09-18] MEDS: LACTATED RINGERS 1,000 ML 42 ML IV (17:21)
--- NOTE | 2018-09-18 17:25 | PM.PREOP ---
Pre-operative Note Interval Note History & Physical reviewed/Exam performed by Physician: Yes Changes to H&P: No
--- NOTE | 2018-09-18 17:33 | P.OP_ITS ---
Operative Date/Time/Diagnoses Time of procedure: 17:30 Pre-op diagnosis: 1. Diabetic foot ulcer left 3rd toe (T2), with osteomyelitis 2. Osteomyelitis left 3rd toe- T2 3. Charcot midfoot 4. Peripheral neuropathy Post-op diagnosis: same Procedure & Clinicians Procedure: 1. Amputation through the interphalangeal joint left 3rd toe - T2- amputation through distal interphalangeal joint CPT code 80998-Z7 Same procedure as scheduled: Yes Indications: Patient is a 72-year-old male newly diagnosed diabetic with a history of peripheral neuropathy and midfoot Charcot neuropathy. Patient developed an ulceration at the end of his left 3rd toe that became infected. The patient presented with diffuse left foot cellulitis as well as findings consistent with osteomyelitis of the distal phalanx left 3rd toe. Patient was placed on IV antibiotics and had Infectious Disease consult by the hospitalist service. Culture grew MSSA. Patient was indicated for irrigation debridement versus distal phalanx amputation for the patient's distal phalanx osteomyelitis. Based on the ulceration bone involvement the patient has elected for amputation for primary closure and shorter antibiotic course and more predictable healing. The risks and benefits of the procedure have been discussed with the patient even opportunity to ask questions. The risks of surgery include but are not limited to infection, malunion, nonunion, persistence of pain, need for additional surgery, damage to nerves and blood vessels, posttraumatic arthritis, , DVT, PE, cardiopulmonary complications and . The patient expressed a thorough understanding of the risks and benefits of surgery and has elected to proceed. Consent was signed today. Surgeon: Ashley Hirsch Click Yes if Unassisted: Yes Anesthesia Type: General and Local Operative Notes Findings: Approximately 1 cm ulceration under the pulp of the distal phalanx probes down to bone or when squeezed a small amount of purulent discharges expressed. Disarticulation through the distal interphalangeal joint demonstrates soft mushy distal phalanx bone back to the distal phalanx base. This is excised and tissue and bone were sent for pathology and micro. Distal interphalangeal joint cartilage appears healthy with no apparent involvement of the middle phalanx. Middle phalanx articular surface is rounded off with a rongeur, the wound is irrigated thoroughly and primarily closed. Closure Type: primary Specimen(s): other (Bone and tissue for micro and pathology) Implants & Drains: None Applied: other (Soft dressing) Estimated Blood Loss (mL): 5 Blood products transfused: none Tourniquet time (min): 12 Procedure in detail: Patient was seen in the preoperative area the site of surgery was marked and informed consent signed. Questions were answered patient was then brought back to the operating room by the anesthesia team and positioned supine on the operative table. General anesthesia was administered. The patient was on scheduled IV antibiotics. The patient's left lower extremity was prepped and draped in standard sterile fashion a well-padded thigh tourniquet had been placed. An SCD was placed on the contralateral lower extremity. A formal time-out procedure was performed confirming the patient's side and site of surgery. Patient was on scheduled IV antibiotics with appropriate dosing. All were in agreement. [place] exsanguination was utilized and the tourniquet elevated to 250 mm of mercury and stayed there for approximately 12 min. Attention was turned to the left 3rd toe distal phalanx that was appropriately marked. 5 cc of 0.25% Marcaine plain was injected as a digital block. A sharp disarticulation through the distal interphalangeal joint of the left 3rd toe was taken down through the skin and subcutaneous tissues. The distal stump specimen was then divided and sent for microbiology and pathology with tissue and bone specimen in each. The distal phalanx was noted to be soft and mushy. Was a small amount of purulence that was able to be discharged through the ulceration. And the ulceration did probe down to distal phalanx bone. Wound was then thoroughly irrigated with 3 L of normal saline and cysto tubing. Next clean gloves and clean instruments were utilized to inspect the middle phalanx. There is no apparent involvement of the middle phalanx and this was nice hard bone. A rongeur was used to remove the condyles and around to the middle phalanx. The flexor and extensor tendons were trimmed and allowed to retract. The neurovascular bundles were carefully transected. Fluoroscopy was brought in for a final x-ray confirming the resection. The tourniquet was released hemostasis was achieved. The wound was irrigated and closed in layers with 4 0 Monocryl subcutaneous and 3 O nylon in the skin. Sterile dressing was placed with Xeroform gauze fluffs Irene wrap and a Tushar wrap. Patient was woken from anesthesia and taken to the PACU in good condition. There no immediate complications of this procedure. All counts were correct. Complications: none Condition: stable Disposition: Acute Care Plan for aftercare: Patient will be transferred back to his hospital room. his discharge will be per his hospitalist primary team. He may be weight-bearing as tolerated in a postop shoe or a boot. He should keep the incision clean dry and intact with a clean dressing this may be changed as needed. Sutures remain in place approximately 2 weeks. Antibiotics per hospitalist team. Follow-up 2 weeks schedule [facility] for wound check. Once incision healed, we will also write prescriptions for diabetic accommodative orthotics and our diabetic shoes for ulcer prevention from patient's Charcot midfoot. Patient must be diligent about foot checks with severe neuropathy.
--- NOTE | 2018-09-18 18:08 | SUR.OPER ---
Supine on padded OR bed, head on pillow, arms secured on padded arm boards at <90 degrees abduction, legs uncrossed, safety belt at abdomen, tape over blanket over lower right leg. Left leg controlled by surgeon.
--- NOTE | 2018-09-18 18:11 | SUR.OPER ---
Regular C-Arm used for case
[2018-09-18] MEDS: BUPIVACAINE 0.25% (PF) VIAL 30 ML INJ (18:27)
[2018-09-18] MEDS: HYDROCODONE/ACET 5/325 TABLET 1 TAB PO (19:34)
[2018-09-18] MEDS: INSULIN ASPART 100 UNIT/ML INSULN PEN SUBCUT (21:51)
[2018-09-19] VITALS (9 sets, daily range): BP systolic 133–165; BP diastolic 71–95; PULSE 75–91; RESP 16–18; TEMP 36.4–36.9; O2SAT 93–96
[2018-09-19] MEDS: ACETAMINOPHEN 325 MG TABLET 975 MG PO ×3 (00:27→16:25)
[2018-09-19] MEDS: KETOROLAC 15 MG/ML VIAL IV ×3 (00:29→18:19)
[2018-09-19] MEDS: CEFAZOLIN 2 GM/100 ML FROZ.PIGGY IV ×3 (04:06→20:01)
[2018-09-19 05:08] LABS: Add Manual Diff / Slide Review NO; Basophils Absolute Auto 0 /uL (0-100); Basophils Percent Auto 0.6 % (0-2); Eosinophils Absolute Auto 400 /uL (0-450); Eosinophils Percent Auto 4.8 % (2-4); Hematocrit 41.7 % (41-53); Hemoglobin 13.8 g/dL (13.5-17.5); Lymphocytes Absolute Auto 1800 /uL (1100-4500); Lymphocytes Percent Auto 23.1 % (25-40); Mean Corpuscular HGB Conc 33.2 % (30-36); Mean Corpuscular Hemoglobin 29.5 PG (26-34); Mean Corpuscular Volume 88.9 fL (80-100); Monocytes Absolute Auto 600 /uL (0-900); Monocytes Percent Auto 7.9 % (3-14); Neutrophils Absolute Auto 5100 /uL (1500-7000); Neutrophils Percent Auto 63.6 % (50-75); Platelet Count 288 X10^3/uL (150-400); Red Blood Cell Count 4.69 X10^6/uL (4.5-5.9); Red Cell Distribution Width 13.3 % (11.6-14.8)
[2018-09-19 05:10] LABS: BUN Creatinine Ratio 28.3 (6-22); Blood Urea Nitrogen 17 mg/dL (9-20); Calcium 8.6 mg/dL (8.4-10.2); Carbon Dioxide 28 mmol/L (22-32); Chloride 100 mmol/L (98-107); Estimated Glomerular Filt Rate > 60.0 mL/min (>60); Glucose 140 mg/dL (80-110); HEMOLYSIS < 15 (0-50); Potassium 3.6 mmol/L (3.4-5.1); Sodium 137 mmol/L (137-145)
--- NOTE | 2018-09-19 05:55 | PC.NURSE ---
NOC Shift: POD #1 for Left 3rd to amputation re: osteomylitis. Pt AAOx3, having anxiety and unrelieved pain control at beginning of shift, pt operative foot was lying flat in bed, foot immediately elevated above heart level explained to pt why to keep limb elevated. Pt states pain decreased w/ this, however SENIOR TAX ANALYST notified and IV Toradol ordered x5 doses for pain control, and RTC tylenol. Pt w/known neuropathy to feet re: spinal stenosis difficult to assess CSM to toes, however pt has mobility and warm to touch. Had order to be on telemetry was not on when shift started, currently NSR w/1 AVB. VSS. Using urinal at bedside, taking po w/o nausea. Remains in contact isolation for pending wound cultures.
[2018-09-19] MEDS: KETOROLAC 30 MG/ML VIAL 15 MG IV (06:15)
[2018-09-19] MEDS: LACTOBACILLUS ACIDOPHILUS TABLET 1 EACH PO ×2 (08:27→17:20)
[2018-09-19] MEDS: DOCUSATE 100 MG CAPSULE PO ×2 (08:27→21:38)
[2018-09-19] MEDS: AMLODIPINE 5 MG TABLET 10 MG PO (08:27)
[2018-09-19] MEDS: SODIUM CHLORIDE 0.9% FLUSH 10 ML IV ×2 (08:29→21:39)
[2018-09-19] MEDS: POLYETHYLENE GLYCOL 3350 17 GM POWD.PACK PO (08:29)
--- NOTE | 2018-09-19 09:12 | P.PN_ITS ---
Subjective Date Patient Seen: 09/19/18 Interval history: Mc Kay a 72-year-old male with a past medical history significant for hypertension, COPD, and peripheral neuropathy who presented from the walk-in clinic for left foot pain and was found to have osteomyelitis and was admitted for further management. Overnight: The patient underwent surgical removal of left 3rd toe successfully without complication. The patient was stable overnight and there were no acute events. Today the patient is resting in bed comfortably and in no acute distress. He has an ice pack in place on left foot and denies any pain related to surgical removal of left 3rd toe. He has no complaints and reports he he feels well taking care of. He is eager to go home but is willing to go to a long term facility if needed for IV antibiotics and rehab. He denies headache, shortness of breath, chest pain, abdominal pain, nausea, vomiting, fever, chills , dysuria, diarrhea or constipation. He is voiding and eliminating without difficulty. He is up ambulating minimally. Exam Vital Signs (past 8 hours): - 09/19/18 04:15 09/19/18 07:35 Temperature 98.2 F 98.5 F Pulse Rate 87 75 Respiratory Rate 18 18 Blood Pressure 134/71 165/95 H Pulse Oximetry 95 96 Oxygen Delivery Method Room Air Oxygen Flow Rate 0 Narrative Exam Narrative: General: Older gentleman sitting in bed and in no acute distress, well- developed, well-nourished, appropriately interactive. HEENT: Normocephalic, atraumatic. External ears without defect. Pupils equal, round, and reactive to light. Anicteric sclerae, moist conjunctivae, and no lid lag. Pulmonary: Clear to auscultation bilaterally without crackles, wheezes, or rhonchi. Normal respiratory effort with no use of accessory muscles. Abdomen: Soft, bowel sounds present, nontender, nondistended. No hepatosplenomegaly or masses appreciated. Extremities: No clubbing or cyanosis. Left foot with ice pack and dressing in place that is C/D/I. No appreciable erythema around amputation site that is covered. Skin: Normal temperature, turgor, and texture; no rash, ulcers, or subcutaneous nodules appreciated. Neurological: Cranial nerves grossly intact. Psychiatric: Normal mood and affect. Alert and oriented to person, place, and time. Objective Labs Result Diagrams: 09/20/18 08:25 09/20/18 08:25 Labs: Laboratory Results - last 24 hr 09/19/18 09/19/18 04:34 04:34 WBC 8.0 RBC 4.69 Hgb 13.8 Hct 41.7 MCV 88.9 MCH 29.5 MCHC 33.2 RDW 13.3 Plt Count 288 Neut % (Auto) 63.6 Lymph % (Auto) 23.1 L [place] % (Auto) 7.9 Eos % (Auto) 4.8 H Baso % (Auto) 0.6 Neut # (Auto) 5100 Lymph # (Auto) 1800 [place] # (Auto) 600 Eos # (Auto) 400 Baso # (Auto) 0 Sodium 137 Potassium 3.6 Chloride 100 Carbon Dioxide 28 BUN 17 Creatinine 0.60 L Estimated GFR > 60.0 BUN/Creatinine Ratio 28.3 H Glucose 140 H Calcium 8.6 Assessment & Plan Plan: Assessment/Plan Narrative: Mc Kay a 72-year-old male with a past medical history significant for hypertension, COPD, and peripheral neuropathy who presented from the walk-in clinic for left foot pain and was found to have osteomyelitis and was admitted for further management. 1. Acute osteomyelitis of distal left 3rd toe status post amputation, present on admission. Active. -Left foot x-ray demonstrated osteomyelitis versus Charcot foot. -Orthopedic surgery has been consulted. We appreciate their care of the patient and recommendations. -Wound culture grew MSSA. Blood cultures have been negative to date. -Discontinued vancomycin and levofloxacin. Per Dr. Wong of Infectious Disease, started cefazolin 2 g every 8 hr and will need 2 weeks total of IV antibiotics now status post left 3rd toe amputation. 2. Peripheral neuropathy, chronic, present on admission. Stable. -Hemoglobin A1C is 6.5% consistent with diabetes mellitus type 2. B12 level is normal. 3. New diagnosis of diabetes mellitus, type II, chronic, present on admission. Stable. -Initial Hemoglobin A1c elevated at 6.5%. -ACHS glucose monitoring. -Discontinued metformin for now as patient is scheduled for surgery and blood glucose has been trending low. Continue low dose correctional scale insulin if needed and ACHS blood glucose checks. 4. COPD, chronic, present on admission. Stable. -No home medications for COPD, will address if he is symptomatic. 5. Depression, chronic, present on admission. Stable. -Continue Zoloft once dose is clarified by patient. 6. Hypertension, chronic, present on admission. Stable. -Continue home amlodipine. Disposition: Likely to discharge to SNF in 1-2 days for IV antibiotics to complete 2 week course pending mobilization and orthopedic recommendations.
--- NOTE | 2018-09-19 10:30 | DI.RAD.S_ITS ---
PROCEDURE: XR CHEST 1V INDICATIONS: PICC PLACEMENT TECHNIQUE: One view of the chest was acquired. COMPARISON: [facility], , CHEST 2 VIEW, 05/22/2015, 9:38. FINDINGS: Surgical changes and devices: A right-sided PICC line is seen, the tip overlying the mid superior vena cava, 5-6 cm above the cavoatrial junction. Lungs and pleura: An incomplete inspiratory result is noted, causing a crowded appearance to the lung markings. No focal infiltrates are seen. No pneumothorax or significant pleural effusions are seen. Mediastinum: The cardiac contours are within normal limits. The aorta demonstrates calcification and tortuosity. Bones and chest wall: Age-appropriate bony degenerative changes are seen. No suspicious bony lesions. Overlying soft tissues appear unremarkable. IMPRESSION: The tip of the right-sided PICC line overlies the mid superior vena cava. Dictated by: Horace Klein M.D. on 09/19/2018 at 10:04 Approved by: Horace Klein M.D. on 09/19/2018 at 10:05
--- NOTE | 2018-09-19 12:55 | PT.IPTN ---
Current Diagnoses Osteomyelitis, unspecified (09/15/18) Surgery Performed Operation Date: 09/18/18 17:30 Actual Procedures p Amputation IPJ 3rd Toe(Left) - Ashley Hirsch MD Physical Therapy Treatment Note M3 PT-IP Subjective Start: 09/19/18 12:54 Freq: NEEDED Status: Active Protocol: Document 09/19/18 12:15 HH (Rec: 09/19/18 12:55 [id number]) Subjective Physical Therapy Visit Type Type Patient Unavailable Visit Start Time 12:15 Notes Pt is unavailable for PT due to lunch. But social hx info and d/c planning obtained with pt and SW. attempt PT this pm
--- NOTE | 2018-09-19 13:16 | CM.DPC ---
Referral faxed to [facility] per Lian.
--- NOTE | 2018-09-19 14:15 | CM.DPC ---
Addendum entered by JALIL Allen 09/19/18 15:03: ADD: Voicemail from Belkys at [facility], she confirmed that pt's [employer] is his primary insurance and waiting to find out if pt will have any out of pocket expense and if Medicare may cover anything that is not picked up. Belkys waiting for PT eval and possible wound care notes to send to [facility] to begin SNF auth. PT attempted today and will try again this afternoon. BF Original Note: DCP SNF Planning: Per MD, pt with toe amputation on his left foot and per ID MD will require at least 2 weeks IV-Abx Ceflazolin Q8 and recommending SNF prior to d/c home. SW met bedside with pt and spouse (via phone) and explained role and they confirmed that home with 3x's a day outpt infusion clinic would not be an option at this time. SW discussed SNF rehab for both IV-Abx and physical therapy and pt states that his preference would ultimately be to heal quickly and d/c home on oral meds but he is aware that this is not likely. Pt and spouse are agreeable to d/c to SNF if needed as long as insurance would cover SNF. SW provided the SNF choice List and preference is to stay in [place] at [facility] even though spouse lives on [facility]. Pt and spouse believe that pt's primary insurance is his [employer] PPO with Medicare secondary. They are requesting referral to [facility] to determine if insurance will authorize SNF and if [facility] can accept. CHARLES Lam faxed new referral to [facility] and BRAULIO spoke to admissions Belkys regarding new referral and insurance. [facility] willing to further review the pt and contact [facility] to confirm coverage for the pt and begin SNF auth if [employer] is actually primary insurance. PASRR completed. Plan: SW to follow closely for [facility] review of pt and confirmation that [employer] is pt's primary insurance and obtaining SNF auth for wound care, IV-Abx, and therapy. JALIL Allen
--- NOTE | 2018-09-19 15:00 | PT.IIE ---
Current Diagnoses Osteomyelitis, unspecified (09/15/18) Surgery Performed Operation Date: 09/18/18 17:30 Actual Procedures p Amputation IPJ 3rd Toe(Left) - Ashley Hirsch MD Medical History (Last Reviewed 09/17/18 @ 19:01 by Ashley Hirsch MD) Hypertension (Acute) Neuropathy (Acute) COPD (chronic obstructive pulmonary disease) (Chronic) Depression (Chronic) Physical Therapy Inpatient Evaluation/Re-Eval M1 PT/OT-IP Prior Functional Status Start: 09/19/18 12:54 Freq: NEEDED Status: Active Protocol: Document 09/19/18 15:00 AB (Rec: 09/19/18 17:10 AB [id number]) Medical Review Prior Functional Status Medical History Reviewed Yes Communication able to make needs known Mobility and Gait staed that he is independent with all mobilities and ambulation without AD Social History Household Members spouse none Living Arrangements Apartment/Condo Number of Floors (Floors) One Floor Number of Stairs To Enter/Railing? pt works in [employer] and rents a [place] apartment. home set up is regarding his [place] apartment where he plans to go [place]ey. 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 stated that he can sit down go do his job if needed. M2 PT-IP Current Condition Start: 09/19/18 12:54 Freq: NEEDED Status: Active Protocol: Document 09/19/18 15:00 AB (Rec: 09/19/18 17:10 AB [id number]) Physical Therapy Current Condition Current Condition Evaluation Date 09/19/18 Treatment Diagnosis s/p L 3rd toe amputation; difficulty in walking Onset Date 09/15/18 Precautions Brace post-op shoe/boot Weight Bearing Status Weight Bearing Status Weight Bear as Tolerated Allowed Weight Bearing Amount (enter % per Dr. Stein's note: WBAT or #) (%) with post-op shoe/boot M3 PT-IP Subjective Start: 09/19/18 12:54 Freq: NEEDED Status: Active Protocol: Document 09/19/18 15:00 AB (Rec: 09/19/18 17:10 AB [id number]) Subjective Physical Therapy Visit Type Type Initial Evaluation Visit Start Time 15:00 Visit Stop Time 15:48 Total Visit Minutes 48 Number of EMPLOYMENT LEGAL ASSISTANT Visits 0 Physical Therapy Visit Comments Patient Comments pt agreeabl to do PT Patient Goals to go back to work in 1 week Therapy Pain Assessment Pain Present Pain Present Denied Pain M4 PT-IP Mobility and Gait Start: 09/19/18 12:54 Freq: NEEDED Status: Active Protocol: Document 09/19/18 15:00 AB (Rec: 09/19/18 17:10 AB [id number]) PT-Bed Mobility Assessment Supine to Sit Supine to Sit Independent Sit to Supine Sit to Supine Independent PT-Transfer Assessment Sit to and From Stand Sit to and from Stand Standby Assistance Equipment Transfer Assistive Device None Gait Belt Comments Mobility Comments pt required assistance with putting socks, post-op boot and shoe on. Gait Assessment Gait Gait Assistance Required: Standby Assistance Contact Guard Assist Distance (Feet) 100 Able to Maintain Weight Bearing Status Yes During Gait Assistive Devices Assistive Device None Gait Belt Orthotic/Prosthetic Devices or Brace: Yes Gait Deviations General Gait Pattern Antalgic Decreased Stride Length Decreased Feet Clearance Factors Limiting Gait Function Factors Limiting Gait Function Decreased Activity Tolerance Decreased Strength Limited Range of Motion Poor Balance Comments Gait Comments pt has post-op boot on LLE and a regular shoe on RLE that make leg uneven affecting balance. educated pt on safety and slowing down. pt agreed. pt required SBA to occasional CGA with ambulation without AD. PT-Balance Assessment Sitting Balance and Reactions Static Sitting Balance Ability Good Dynamic Sitting Balance Ability Good Standing Balance and Reactions Static Standing Balance Ability Good Dynamic Standing Balance Ability Fair Device Used without AD M5 PT-IP Objective Assessments Start: 09/19/18 12:54 Freq: NEEDED Status: Active Protocol: Document 09/19/18 15:00 AB (Rec: 09/19/18 17:10 AB [id number]) Orientation Orientation/Cognition Level of Alertness Alert Orientation Name Age Birthday Month Date Year Day of Week Place Situation Language Function Ability No Deficits Noted Safety Awareness Understands Safety Issues Memory Description No Deficits Noted Gross Range of Motion Lower Extremity ROM Assessment Within Functional Limits Strength Lower Extremity Strength Assessment Within Functional Limits Coordination Assessment Gross Coordination Gross Coordination WNL Sensation Assessment Sensation Gross Sensation Right LE Impaired Left LE Impaired Light Touch Impaired Proprioception (Position) Impaired Comments Sensation Comments decrease sensation and tactile discrimination on BLE from ankle down to toes. Muscle Tone Muscle Tone WNL Yes M6 PT-IP Treatment Start: 09/19/18 12:54 Freq: NEEDED Status: Active Protocol: Document 09/19/18 15:00 AB (Rec: 09/19/18 17:10 AB [id number]) Physical Therapy Treatment Education Education Provided Precautions Weight Bearing Status Safety M7 PT-IP Assessment and Plan Start: 09/19/18 12:54 Freq: NEEDED Status: Active Protocol: Document 09/19/18 15:00 AB (Rec: 09/19/18 17:10 AB [id number]) PT Summary Assessment and Plan Potential Rehabilitation Potential Good Status of Condition at Evaluation Stable Summary Impairments Pain ROM Strength Balance Coordination Sensation Tone Cognition Bed Mobility Transfers Gait Activity Tolerance Assessment Summary pt requiring SBA to occasional CGA with mobility. pt plans to go back to work in 1 week. d/c plan depending on medical stability and needs due to LLE infection. Pt agreeable to go to SNF for antibiotic tx if needed. Goals Transfer Goal Independent Gait Goal Independent Gait Distance 200 Other Goals up/down 10 steps using 1 rail Days to Meet Goals 3 Frequency of Treatment Frequency Of Treatment Once a Day Treatment Plan Physical Therapy Treatment Plan Bed Mobility Training Transfer Training Gait Training Therapeutic Exercise Balance Retraining Post Op Education Discharge Planning Hot or Cold Pack Neuromuscular Re-ed Coordination Retraining Manual Therapy Other Recommendations and Next Treatment ambulation; stair climbing Focus Recommendations To Nursing Amount of Assist Needed 1 Person Assist Discharge Recommendations PT Discharge Recommendations Home with Assistance
--- NOTE | 2018-09-19 16:27 | P.PN_ITS ---
Subjective Date Patient Seen: 09/19/18 Time Patient Seen: 16:23 Interval history: Pain is mild. No nausea vomiting. Has been up with physical therapy. Otherwise without complaints. Exam Vital Signs (past 8 hours): - 09/19/18 10:11 09/19/18 11:47 09/19/18 16:17 Temperature 98.4 F 97.5 F L Pulse Rate 77 86 Respiratory Rate 16 18 Blood Pressure 146/83 H 140/84 Pulse Oximetry 96 95 95 Oxygen Delivery Method Room Air Oxygen Flow Rate 0 Narrative Exam Narrative: Pleasant 72-year-old male resting comfortably in bed in no apparent distress. Dressing in place, left foot, clean, dry and intact. Objective Labs Result Diagrams: 09/19/18 04:34 09/19/18 04:34 Labs: Laboratory Results - last 24 hr 09/19/18 09/19/18 04:34 04:34 WBC 8.0 RBC 4.69 Hgb 13.8 Hct 41.7 MCV 88.9 MCH 29.5 MCHC 33.2 RDW 13.3 Plt Count 288 Neut % (Auto) 63.6 Lymph % (Auto) 23.1 L [place] % (Auto) 7.9 Eos % (Auto) 4.8 H Baso % (Auto) 0.6 Neut # (Auto) 5100 Lymph # (Auto) 1800 [place] # (Auto) 600 Eos # (Auto) 400 Baso # (Auto) 0 Sodium 137 Potassium 3.6 Chloride 100 Carbon Dioxide 28 BUN 17 Creatinine 0.60 L Estimated GFR > 60.0 BUN/Creatinine Ratio 28.3 H Glucose 140 H Calcium 8.6 Assessment & Plan Post-op Postoperative Procedures Operation Date: 09/18/18 17:30 Actual Procedures Side Surgeon p Amputation IPJ 3rd Toe Left Ashley Hirsch MD Weightbearing as tolerated in a postop shoe or boot. He should keep incision clean, dry and intact. Dressing may be changed as needed. Sutures to remain in place for approximately 2 weeks. Antibiotics per hospitalist team. Follow up with [facility] in 2 weeks for wound check. Once incisions healed, we will also write prescriptions for diabetic accommodative orthotics and or diabetic shoes for ulcer prevention from patient's Charcot midfoot. Patient needs to be diligent about foot checks with severe neuropathy. Discharge per hospitalist team.
--- NOTE | 2018-09-19 21:53 | PC.NURSE ---
Addendum entered by Diana Mlilard R.N. 09/19/18 22:08: 2200 - Pt request to ambulate. Assist with placement of walking boot. Ambulate the halls with FUR [employer]AT SEWER. Original Note: During the afternoon, pt had gotten out of bed and ambulated around the unit with therapy. Returning to bed following ambulation. Offer to assist pt to chair for meal, and multiple offers to ambulate throughout the evening pt declined. Discussed mobility, activity and deep breath. Pt verbalized understanding. Able to take meds without difficulty. Using call light appropriately. Call light in reach.
[2018-09-20 00:18] VITALS: BP 114/82; PULSE 86; RESP 20; TEMP 36.8; O2SAT 97
[2018-09-20 00:26] VITALS: O2SAT 96
[2018-09-20] MEDS: KETOROLAC 15 MG/ML VIAL IV ×4 (00:37→18:39)
[2018-09-20] MEDS: ACETAMINOPHEN 325 MG TABLET 975 MG PO ×3 (00:41→17:18)
[2018-09-20] MEDS: SODIUM CHLORIDE 0.9% FLUSH 10 ML IV ×3 (00:41→08:45)
[2018-09-20] MEDS: CEFAZOLIN 2 GM/100 ML FROZ.PIGGY IV ×3 (04:03→20:35)
[2018-09-20 07:50] VITALS: O2SAT 98
[2018-09-20 07:54] VITALS: BP 158/99; PULSE 85; RESP 18; TEMP 37; O2SAT 95
[2018-09-20] MEDS: POLYETHYLENE GLYCOL 3350 17 GM POWD.PACK PO (08:44)
[2018-09-20] MEDS: AMLODIPINE 5 MG TABLET 10 MG PO (08:45)
[2018-09-20] MEDS: DOCUSATE 100 MG CAPSULE PO (08:45)
[2018-09-20] MEDS: LACTOBACILLUS ACIDOPHILUS TABLET 1 EACH PO ×2 (08:45→20:35)
[2018-09-20 09:02] LABS: Add Manual Diff / Slide Review NO; Basophils Absolute Auto 0 /uL (0-100); Basophils Percent Auto 0.6 % (0-2); Eosinophils Absolute Auto 300 /uL (0-450); Eosinophils Percent Auto 4.8 % (2-4); Hematocrit 42.7 % (41-53); Hemoglobin 14.5 g/dL (13.5-17.5); Lymphocytes Absolute Auto 1300 /uL (1100-4500); Lymphocytes Percent Auto 19.5 % (25-40); Mean Corpuscular HGB Conc 33.9 % (30-36); Mean Corpuscular Hemoglobin 29.9 PG (26-34); Mean Corpuscular Volume 88.2 fL (80-100); Monocytes Absolute Auto 500 /uL (0-900); Monocytes Percent Auto 6.7 % (3-14); Neutrophils Absolute Auto 4700 /uL (1500-7000); Neutrophils Percent Auto 68.4 % (50-75); Platelet Count 295 X10^3/uL (150-400); Red Blood Cell Count 4.85 X10^6/uL (4.5-5.9); Red Cell Distribution Width 13.6 % (11.6-14.8); White Blood Cell Count 6.9 X10^3/uL (4.5-11.0)
[2018-09-20 09:20] LABS: Blood Urea Nitrogen 14 mg/dL (9-20); Calcium 8.6 mg/dL (8.4-10.2); Carbon Dioxide 29 mmol/L (22-32); Chloride 100 mmol/L (98-107); Estimated Glomerular Filt Rate > 60.0 mL/min (>60); Glucose 137 mg/dL (80-110); HEMOLYSIS < 15 (0-50); Potassium 3.5 mmol/L (3.4-5.1); Sodium 138 mmol/L (137-145)
--- NOTE | 2018-09-20 10:48 | PM.PNPO.1 ---
Subjective Date Patient Seen: 09/20/18 Time Patient Seen: 10:48 Interval history: POD #2 s/p amputation through the interphalangeal joint left 3rd toe - T2-amputation through distal interphalangeal joint with Dr. Hirsch. Patient has been mobilizing with PT. No complaints of pain. Exam Vital Signs (past 8 hours): - 09/20/18 07:50 09/20/18 07:54 Temperature 98.6 F Pulse Rate 85 Respiratory Rate 18 Blood Pressure 158/99 H Pulse Oximetry 98 95 Oxygen Delivery Method Room Air Oxygen Flow Rate 0 Narrative Exam Narrative: Patient lying in bed in NAD. He is alert and oriented X3. Dressing is CDI. Calves are soft, compressible, and nontender bilaterally. Objective Labs Result Diagrams: 09/20/18 08:25 09/20/18 08:25 Labs: Laboratory Results - last 24 hr 09/20/18 09/20/18 08:25 08:25 WBC 6.9 RBC 4.85 Hgb 14.5 Hct 42.7 MCV 88.2 MCH 29.9 MCHC 33.9 RDW 13.6 Plt Count 295 Neut % (Auto) 68.4 Lymph % (Auto) 19.5 L [place] % (Auto) 6.7 Eos % (Auto) 4.8 H Baso % (Auto) 0.6 Neut # (Auto) 4700 Lymph # (Auto) 1300 [place] # (Auto) 500 Eos # (Auto) 300 Baso # (Auto) 0 Sodium 138 Potassium 3.5 Chloride 100 Carbon Dioxide 29 BUN 14 Creatinine 0.50 L Estimated GFR > 60.0 BUN/Creatinine Ratio 28.0 H Glucose 137 H Calcium 8.6 Assessment & Plan Post-op Postoperative Procedures Operation Date: 09/18/18 17:30 Actual Procedures Side Surgeon p Amputation IPJ 3rd Toe Left Ashley Hirsch MD Patient has been mobilizing with PT. He is weight-bearing as tolerated. He should keep the incision clean dry and intact with a clean dressing changed as needed. Sutures remain in place approximately 2 weeks. Antibiotics per hospitalist team and ID. Follow-up 2 weeks schedule [facility] for wound check. Once incision healed, we will also write prescriptions for diabetic accommodative orthotics and our diabetic shoes for ulcer prevention from patient's Charcot midfoot. Once home, patient must be diligent about foot checks with severe neuropathy, if he has any issues with his dressing he needs to call our office. His discharge will be per his hospitalist team.
--- NOTE | 2018-09-20 11:48 | P.PN_ITS ---
Subjective Date Patient Seen: 09/20/18 Interval history: Mc Kay a 72-year-old male with a past medical history significant for hypertension, COPD, and peripheral neuropathy who presented from the walk-in clinic for left foot pain and was found to have osteomyelitis and was admitted for further management. Overnight: The patient was stable overnight and there were no acute events. Today the patient is resting in bed comfortably and in no acute distress. His foot appears to be healing well no signs of infection and he denies any pain related to surgical removal of left 3rd toe. He has no complaints and is eager to go home. He denies headache, shortness of breath, chest pain, abdominal pain , nausea, vomiting, fever, chills, dysuria, diarrhea or constipation. He is voiding and eliminating without difficulty. He is up ambulating well with physical therapy. Exam Vital Signs (past 8 hours): - 09/20/18 07:50 09/20/18 07:54 Temperature 98.6 F Pulse Rate 85 Respiratory Rate 18 Blood Pressure 158/99 H Pulse Oximetry 98 95 Oxygen Delivery Method Room Air Oxygen Flow Rate 0 Narrative Exam Narrative: General: Older gentleman sitting in bed and in no acute distress, well- developed, well-nourished, appropriately interactive. HEENT: Normocephalic, atraumatic. External ears without defect. Pupils equal, round, and reactive to light. Anicteric sclerae, moist conjunctivae, and no lid lag. Pulmonary: Clear to auscultation bilaterally without crackles, wheezes, or rhonchi. Normal respiratory effort with no use of accessory muscles. Abdomen: Soft, bowel sounds present, nontender, nondistended. No hepatosplenomegaly or masses appreciated. Extremities: No clubbing or cyanosis. Left foot withdressing in place that is C /D/I. No appreciable erythema around amputation site. Skin: Normal temperature, turgor, and texture; no rash, ulcers, or subcutaneous nodules appreciated. Neurological: Cranial nerves grossly intact. Psychiatric: Normal mood and affect. Alert and oriented to person, place, and time. Objective Labs Result Diagrams: 09/20/18 08:25 09/20/18 08:25 Labs: Laboratory Results - last 24 hr 09/20/18 09/20/18 08:25 08:25 WBC 6.9 RBC 4.85 Hgb 14.5 Hct 42.7 MCV 88.2 MCH 29.9 MCHC 33.9 RDW 13.6 Plt Count 295 Neut % (Auto) 68.4 Lymph % (Auto) 19.5 L [place] % (Auto) 6.7 Eos % (Auto) 4.8 H Baso % (Auto) 0.6 Neut # (Auto) 4700 Lymph # (Auto) 1300 [place] # (Auto) 500 Eos # (Auto) 300 Baso # (Auto) 0 Sodium 138 Potassium 3.5 Chloride 100 Carbon Dioxide 29 BUN 14 Creatinine 0.50 L Estimated GFR > 60.0 BUN/Creatinine Ratio 28.0 H Glucose 137 H Calcium 8.6 Assessment & Plan Plan: Assessment/Plan Narrative: Mc Kay a 72-year-old male with a past medical history significant for hypertension, COPD, and peripheral neuropathy who presented from the walk-in clinic for left foot pain and was found to have osteomyelitis and was admitted for further management. 1. Acute osteomyelitis of distal left 3rd toe status post amputation, present on admission. Active. -Left foot x-ray demonstrated osteomyelitis in left 3rd toe now status post left 3rd toe amputation. -Orthopedic surgery has been consulted. We appreciate their care of the patient and recommendations. Ortho recommends keeping incision clean dry and intact with a clean dressing changed as needed. Sutures remain in place approximately 2 weeks. Follow-up with [facility] in 2 weeks. -Toe tissue specimen is growing Staphylococcus which is likely MSSA and group B strep. Wound culture which is less specific grew MSSA, strep parasanguinis, and prevotella bivia. Blood cultures have been negative to date. -Discontinued vancomycin and levofloxacin. Per Dr. Wong of Infectious Disease, continue cefazolin 2 g every 8 hr for 3-5 days after toe amputation as long as margins are clear. 2. Peripheral neuropathy, chronic, present on admission. Stable. -Hemoglobin A1C is 6.5% consistent with diabetes mellitus type 2. B12 level is normal. 3. New diagnosis of diabetes mellitus, type II, chronic, present on admission. Stable. -Initial Hemoglobin A1c elevated at 6.5%. -Serial glucose monitoring. -Discontinued metformin for surgical intervention and will plan to restart at time of discharge. Continue low dose correctional scale insulin if needed and ACHS blood glucose checks. 4. COPD, chronic, present on admission. Stable. -No home medications for COPD, will address if he is symptomatic. 5. Depression, chronic, present on admission. Stable. -Have been holding home Zoloft as patient has not clarified dose. 6. Hypertension, chronic, present on admission. Stable. -Continue home amlodipine. Disposition: Patient may discharge in 2-3 days or be discharged to SNF sooner to complete antibiotics.
--- NOTE | 2018-09-20 13:40 | PT.IPTN ---
Current Diagnoses Osteomyelitis, unspecified (09/15/18) Surgery Performed Operation Date: 09/18/18 17:30 Actual Procedures p Amputation IPJ 3rd Toe(Left) - Ashley Hirsch MD Physical Therapy Treatment Note M2 PT-IP Current Condition Start: 09/19/18 12:54 Freq: NEEDED Status: Active Protocol: Document 09/19/18 15:00 AB (Rec: 09/19/18 17:10 AB [id number]) Physical Therapy Current Condition Current Condition Evaluation Date 09/19/18 Treatment Diagnosis s/p L 3rd toe amputation; difficulty in walking Onset Date 09/15/18 Precautions Brace post-op shoe/boot Weight Bearing Status Weight Bearing Status Weight Bear as Tolerated Allowed Weight Bearing Amount (enter % per Dr. Stein's note: WBAT or #) (%) with post-op shoe/boot M3 PT-IP Subjective Start: 09/19/18 12:54 Freq: NEEDED Status: Active Protocol: Document 09/20/18 11:45 HH (Rec: 09/20/18 13:40 HH [email or web address]) Subjective Physical Therapy Visit Type Type Treatment Note Visit Start Time 11:45 Visit Stop Time 12:05 Total Visit Minutes 20 Notes Per RN, pt has been getting OOB with his walker boot without AD for toileting 1pa. Number of OUTSIDE EVENT SALES SPECIALIST Visits 0 Physical Therapy Visit Comments Patient Comments agreeable to mobilize with PT. Pt states I dont know why my boot clicks and somewhat loose when i walk around. Therapy Pain Assessment Pain Present Pain Present Denied Pain M4 PT-IP Mobility and Gait Start: 09/19/18 12:54 Freq: NEEDED Status: Active Protocol: Document 09/20/18 11:45 HH (Rec: 09/20/18 13:40 HH [email or web address]) PT-Bed Mobility Assessment Supine to Sit Supine to Sit Independent Sit to Supine Sit to Supine Independent PT-Transfer Assessment Sit to and From Stand Sit to and from Stand Independent Use of Upper Extremities Equipment Transfer Assistive Device None Gait Belt Comments Mobility Comments pt is able to dain/doff his walker boot independently in seated position. However, pt education is given on tightening his boot after a full contact between his back of ankle against the boot. Gait Assessment Gait Gait Assistance Required: Standby Assistance Distance (Feet) 150 Able to Maintain Weight Bearing Status Yes During Gait Assistive Devices Assistive Device None Gait Belt Orthotic/Prosthetic Devices or Brace: Yes Gait Deviations General Gait Pattern Antalgic Decreased Stride Length Decreased Feet Clearance Factors Limiting Gait Function Factors Limiting Gait Function Decreased Activity Tolerance Decreased Strength Limited Range of Motion Poor Balance Comments Gait Comments pt did not c/o about clicking and loosening of the foot after education. Pt presents L hip hike during amb due to lengthen R LE from the elevated R walker boot. Recommended pt to have a elevated L shoes to even out. M5 PT-IP Objective Assessments Start: 09/19/18 12:54 Freq: NEEDED Status: Active Protocol: Document 09/19/18 15:00 AB (Rec: 09/19/18 17:10 AB [id number]) Orientation Orientation/Cognition Level of Alertness Alert Orientation Name Age Birthday Month Date Year Day of Week Place Situation Language Function Ability No Deficits Noted Safety Awareness Understands Safety Issues Memory Description No Deficits Noted Gross Range of Motion Lower Extremity ROM Assessment Within Functional Limits Strength Lower Extremity Strength Assessment Within Functional Limits Coordination Assessment Gross Coordination Gross Coordination WNL Sensation Assessment Sensation Gross Sensation Right LE Impaired Left LE Impaired Light Touch Impaired Proprioception (Position) Impaired Comments Sensation Comments decrease sensation and tactile discrimination on BLE from ankle down to toes. Muscle Tone Muscle Tone WNL Yes M6 PT-IP Treatment Start: 09/19/18 12:54 Freq: NEEDED Status: Active Protocol: Document 09/20/18 11:45 HH (Rec: 09/20/18 13:40 HH [email or web address]) Physical Therapy Treatment Education Education Provided Precautions Weight Bearing Status Safety M7 PT-IP Assessment and Plan Start: 09/19/18 12:54 Freq: NEEDED Status: Active Protocol: Document 09/20/18 11:45 HH (Rec: 09/20/18 13:40 HH [email or web address]) PT Summary Assessment and Plan Potential Rehabilitation Potential Good Status of Condition at Evaluation Stable Summary Impairments Pain ROM Strength Balance Coordination Sensation Tone Cognition Bed Mobility Transfers Gait Activity Tolerance Assessment Summary Pt education to reach full contact between his back of the ankle and the boot before tightening. pt did not c/o discomfort and clicking sound after education. Pt cont amb with antalgic gait with L hip hike due to elevated walker boot. At this point, recommend d/c home with assistance. Pt agreeable to go to SNF for antibiotic tx if needed. Goals Transfer Goal Independent Gait Goal Independent Gait Distance 200 Other Goals up/down 10 steps using 1 rail Days to Meet Goals 3 Treatment Plan Physical Therapy Treatment Plan Bed Mobility Training Transfer Training Gait Training Therapeutic Exercise Balance Retraining Post Op Education Discharge Planning Hot or Cold Pack Neuromuscular Re-ed Coordination Retraining Manual Therapy Other Recommendations and Next Treatment ambulation; stair climbing Focus Recommendations To Nursing Amount of Assist Needed 1 Person Assist Discharge Recommendations PT Discharge Recommendations Home with Assistance
[2018-09-20 15:40] VITALS: BP 132/89; PULSE 75; RESP 16; TEMP 37.1; O2SAT 95
--- NOTE | 2018-09-20 15:41 | CM.DPC ---
DCP/SNF planning Called [facility]: They have accepted patient clinically, but continue to work for an auth from [facility]. [facility] attempted to gain auth during the day, but was unsuccessful. [facility] will continue to try and obtain auth tomorrow prior to three day weekend. Met with patient and spouse: patient would like to go home with Infusion services or even OP infusion services but does not have a PCP to follow. Spouse states she called [facility] and was told Dr. Jagdeep Flores would follow patient ([phone]). SW called [facility] confirmed that patient's PCP is Dr. Flores and Dr. Flores will follow patient for any HH/Infusion services needs. Dr. Guidry reported that patient may not need IV abx as long as expected depending on margins. They are optimistic for an additional 3-5 day course but the original dosing rx was 10 days. Called [facility]: they do go out to [place] and are contracted with [facility]. Referral Faxed. Plan: Pending Auth. Possible SNF vs Home with [facility]. Will need close follow up to determine discharge plan.
[2018-09-20 16:00] VITALS: O2SAT 95
--- NOTE | 2018-09-20 16:05 | OT.IP.TRT ---
Current Diagnoses Osteomyelitis, unspecified (09/15/18) Surgery Performed Operation Date: 09/18/18 17:30 Actual Procedures p Amputation IPJ 3rd Toe(Left) - Ashley Hirsch MD Occupational Therapy Treatment Note M3 OT- IP Subjective and Pain Start: 09/20/18 15:56 Freq: Status: Active Protocol: Document 09/20/18 15:58 [facility] (Rec: 09/20/18 16:05 [facility] [email or web address]) OT- Subjective Occupational Therapy Visit Type Type Treatment Note Visit Start Time 15:35 Visit Stop Time 15:50 Total Visit Minutes 15 Occupational Therapy Visit Comments Patient Comments Pt states 100% certain able to do all Adl needs at this time and does note feel OT eval needed at this time. Pt already independently able to don/doff post-op boot with PT earlier. Was able to suggest to pt and regarding foot care after he goes home eventually that he would benefit from a foot mirror, foot brush, and to sit or place his foot onto small stool or sit on shower chair to be able to wash his feet thoroughly, otherwise would benefit from soaking his feet. Pt also agreed that it would be beneficial to put grab bars up in the shower for safety. At this time discharge OT eval order and only seen for short treatment.
[2018-09-21] VITALS (9 sets, daily range): BP systolic 125–159; BP diastolic 79–106; PULSE 72–108; RESP 16–18; TEMP 36.4–36.9; O2SAT 93–98
[2018-09-21] MEDS: KETOROLAC 15 MG/ML VIAL IV ×4 (00:03→18:52)
[2018-09-21] MEDS: ACETAMINOPHEN 325 MG TABLET 975 MG PO ×3 (00:04→16:10)
[2018-09-21] MEDS: CEFAZOLIN 2 GM/100 ML FROZ.PIGGY IV ×3 (04:30→20:37)
[2018-09-21] MEDS: SODIUM CHLORIDE 0.9% FLUSH 10 ML IV ×4 (04:31→20:38)
[2018-09-21] MEDS: LACTOBACILLUS ACIDOPHILUS TABLET 1 EACH PO ×2 (08:20→16:10)
[2018-09-21] MEDS: AMLODIPINE 5 MG TABLET 10 MG PO (08:21)
[2018-09-21] MEDS: POLYETHYLENE GLYCOL 3350 17 GM POWD.PACK PO (08:22)
[2018-09-21] MEDS: DOCUSATE 100 MG CAPSULE PO ×2 (08:22→20:37)
--- NOTE | 2018-09-21 10:18 | PT.IPTN ---
Current Diagnoses Osteomyelitis, unspecified (09/15/18) Surgery Performed Operation Date: 09/18/18 17:30 Actual Procedures p Amputation IPJ 3rd Toe(Left) - Ashley Hirsch MD Physical Therapy Treatment Note M2 PT-IP Current Condition Start: 09/19/18 12:54 Freq: NEEDED Status: Active Protocol: Document 09/19/18 15:00 AB (Rec: 09/19/18 17:10 AB [id number]) Physical Therapy Current Condition Current Condition Evaluation Date 09/19/18 Treatment Diagnosis s/p L 3rd toe amputation; difficulty in walking Onset Date 09/15/18 Precautions Brace post-op shoe/boot Weight Bearing Status Weight Bearing Status Weight Bear as Tolerated Allowed Weight Bearing Amount (enter % per Dr. Stein's note: WBAT or #) (%) with post-op shoe/boot M3 PT-IP Subjective Start: 09/19/18 12:54 Freq: NEEDED Status: Active Protocol: Document 09/21/18 09:40 (Rec: 09/21/18 10:18 [email or web address]) Subjective Physical Therapy Visit Type Type Discharge Summary Visit Start Time 09:40 Visit Stop Time 10:00 Total Visit Minutes 20 Notes Per RN, pt has been getting OOB independently without AD. Number of WASHTUB WORKER Visits 0 Physical Therapy Visit Comments Patient Comments agreeable to mobilize with PT. My boot doesnt click anymore and i feel comfortable with it . Therapy Pain Assessment Pain Present Pain Present Denied Pain M4 PT-IP Mobility and Gait Start: 09/19/18 12:54 Freq: NEEDED Status: Active Protocol: Document 09/21/18 09:40 (Rec: 09/21/18 10:18 [email or web address]) PT-Bed Mobility Assessment Supine to Sit Supine to Sit Independent Sit to Supine Sit to Supine Independent PT-Transfer Assessment Sit to and From Stand Sit to and from Stand Independent Use of Upper Extremities Equipment Transfer Assistive Device None Gait Belt Comments Mobility Comments pt is able to dain/doff his walker boot independently in seated position. Gait Assessment Gait Gait Assistance Required: Standby Assistance Distance (Feet) 600 Able to Maintain Weight Bearing Status Yes During Gait Assistive Devices Assistive Device None Gait Belt Orthotic/Prosthetic Devices or Brace: Yes Gait Deviations General Gait Pattern Antalgic Decreased Stride Length Decreased Feet Clearance Factors Limiting Gait Function Factors Limiting Gait Function Decreased Activity Tolerance Decreased Strength Limited Range of Motion Poor Balance Comments Gait Comments Pt amb from ICU to acute care on the second floor under supervision today. pt cont presents L hip hike during amb due to lengthen R LE from the elevated R walker boot. Pt did not show any signs of acute distress and LOB. Stair Climbing Assessment Evaluation Level of Assist On Stairs Independent Devices Stair Climbing Assistive Devices Right Railing Technique/Endurance Stair Climbing Direction Ascend and Descend Stair Climbing Technique Step Over Step Number of Steps Climbed 20 Query Text: Comments Stair Climbing Comments Pt negotiate 20 steps from [facility] to acute care today under supervision. Pt used step over with R handrail for support. Did not show signs of LOB but he did c/o slight SOB after. PT-Balance Assessment Sitting Balance and Reactions Static Sitting Balance Ability Good Dynamic Sitting Balance Ability Good Standing Balance and Reactions Static Standing Balance Ability Good Dynamic Standing Balance Ability Good Device Used without AD M5 PT-IP Objective Assessments Start: 09/19/18 12:54 Freq: NEEDED Status: Active Protocol: Document 09/19/18 15:00 AB (Rec: 09/19/18 17:10 AB [id number]) Orientation Orientation/Cognition Level of Alertness Alert Orientation Name Age Birthday Month Date Year Day of Week Place Situation Language Function Ability No Deficits Noted Safety Awareness Understands Safety Issues Memory Description No Deficits Noted Gross Range of Motion Lower Extremity ROM Assessment Within Functional Limits Strength Lower Extremity Strength Assessment Within Functional Limits Coordination Assessment Gross Coordination Gross Coordination WNL Sensation Assessment Sensation Gross Sensation Right LE Impaired Left LE Impaired Light Touch Impaired Proprioception (Position) Impaired Comments Sensation Comments decrease sensation and tactile discrimination on BLE from ankle down to toes. Muscle Tone Muscle Tone WNL Yes M6 PT-IP Treatment Start: 09/19/18 12:54 Freq: NEEDED Status: Active Protocol: Document 09/21/18 09:40 HH (Rec: 09/21/18 10:18 HH [email or web address]) Physical Therapy Treatment Education Education Provided Precautions Weight Bearing Status Safety M7 PT-IP Assessment and Plan Start: 09/19/18 12:54 Freq: NEEDED Status: Active Protocol: Document 09/21/18 09:40 HH (Rec: 09/21/18 10:18 HH [email or web address]) PT Summary Assessment and Plan Potential Rehabilitation Potential Good Status of Condition at Evaluation Stable Summary Impairments Pain ROM Strength Balance Coordination Sensation Tone Cognition Bed Mobility Transfers Gait Activity Tolerance Progress Towards Goals Progressing Toward Goals Assessment Summary Pt is able to dain/doff his walker boot independently today. Pt denies clicking and discomfort since last visit. Pt amb 600 feet today and negotiated 20 steps under supervision without using AD today. D/C from PT since pt reached his rehab goals and PLOF. Pt is currently under the process of choosing d/c [facility] vs home with infusion solution. Frequency of Treatment Frequency Of Treatment Discharge Recommendations To Nursing Amount of Assist Needed Independent Discharge Recommendations PT Discharge Recommendations Home with Assistance
--- NOTE | 2018-09-21 10:52 | PM.PNPO.1 ---
Subjective Date Patient Seen: 09/21/18 Time Patient Seen: 10:52 Interval history: POD #3 s/p amputation through the interphalangeal joint left 3rd toe - T2-amputation through distal interphalangeal joint with Dr. Hirsch. Patient has been mobilizing with PT. No complaints of pain. He has not had his dressing changed since surgery. Exam Vital Signs (past 8 hours): - 09/21/18 08:20 09/21/18 09:00 09/21/18 09:47 Temperature 97.5 F L Pulse Rate 80 108 H Respiratory Rate 16 16 Blood Pressure 153/98 H 159/106 H Pulse Oximetry 93 98 96 Oxygen Delivery Method Room Air Oxygen Flow Rate 0 Narrative Exam Narrative: Patient lying in bed in NAD. He is alert and oriented X3. Dressing on left foot removed. Sutures are intact, mild erythema throughout digit. Skin at sutures is healing well with no signs of dehiscence or maceration. New dressing applied. Calves are soft, compressible, and nontender bilaterally. Objective Labs Result Diagrams: 09/20/18 08:25 09/20/18 08:25 Assessment & Plan Post-op Postoperative Procedures Operation Date: 09/18/18 17:30 Actual Procedures Side Surgeon p Amputation IPJ 3rd Toe Left Ashley Hirsch MD Patient will continue to mobilize with PT. Wear boot when up and ambulating. Continue abx per hospitalist recommendations. Dressing changes as needed, likely in next 3 days. Discharge per hospitalist.
--- NOTE | 2018-09-21 11:10 | PC.NURSE ---
Pts dressing to his l.foot changed. Top of toe removed, sutures present without any drainage. Xeroform wrapped around toe with some gauze and an roselyn wrap. Pt denies any pain. He does have neuropathy in both of his legs. Resting comfortably and getting up to bathroom in room independent. When he wants to walk in the halls, he perfers to have somebody with him
--- NOTE | 2018-09-21 11:27 | CM.DPC ---
DCP Cont: Met with patient briefly in room. Patient alert and oriented, pleasant. Stated, he was not crazy about the idea of going home with IV antibiotics. He stated, I could get in trouble, what if they think that I am taking drugs through my IV, I could have my license taken away. This family service caseworker was unsure of what patient was implying. Let him know that this would be for antibiotic treatment, and would be monitored through [facility]. He stated, I would rather go to skilled, or just stay here and finish treatment. Discussed patient at rounds. Hospitalist, Dr. Kay, stated that he may only need a couple more days of antibiotics, so he can get that here, will depend upon latest labs. Belkys at [facility] stated, she contacted [facility], and they will pay 80%, and patient would have to pay 20%. She could not state what the daily fee would be. Asked her if Medicare could be billed, since this is his secondary since he is still employed. Stated, Medicare will not cover, could bill them, but unlikely that they will pay. Armando at [employer] called. Stated that patient has not yet met his deductible, and he would have to pay 300.00 deductible, and after that, would be 162.00 a week. Stated that total could be about 1300.00. Dis speak to patient's , Sun, about options. She stated, she is not working and does not have a steady pay check, so unsure if they can manage. She asked about billing Medicare for skilled, since it's secondary due to the fact that patient is still employed. Updated her on coverage. Let her know that patient may only need another day or 2 of antibiotics which he can get here, but this is to be determined. P: DCP to continue to assess. Patient will either complete antibiotics here, or other alternatives will need to be made. confirmed that Dr. Flores will be patient's new doctor, since Dr. Farah is no longer at practice. Chloe Copeland, PÉREZ/Cut Press Operator
--- NOTE | 2018-09-21 14:10 | CM.DPC ---
DCP Cont: Spoke to Armando at [facility]. Let him know that his message was received, regarding cost of infusion. Let him know that patient's was updated, but she was concerned about cost. Also, let him know that patient may complete his antibiotics here in hospital, for he only needs a couple more days. He stated that he would keep orders, and would not proceed with setting this up. Let him know, would call him this week-end if this changes. P: DCP to continue to follow. May be able to return home and finish antibiotics here. Chloe Copeland RN/Adult Ministries Director
--- NOTE | 2018-09-21 20:54 | PM.PN.1 ---
Subjective Date Patient Seen: 09/21/18 Interval history: Mc Kay a 72-year-old male with a past medical history significant for hypertension, COPD, and peripheral neuropathy who presented from the walk-in clinic for left foot pain and was found to have osteomyelitis and was admitted for further management. Overnight: The patient was stable overnight and there were no acute events. Today the patient is in better spirits overall. He is resting in bed comfortably and in no acute distress. His foot continues to deny any left foot pain and appears to be healing well. He is eager to go home. He denies headache, shortness of breath, chest pain, abdominal pain, nausea, vomiting, fever, chills, dysuria, diarrhea or constipation. He is voiding and eliminating without difficulty. He is up ambulating well with physical therapy. Exam Vital Signs (past 8 hours): - 09/21/18 15:45 09/21/18 15:59 Temperature 97.7 F Pulse Rate 84 Respiratory Rate 16 Blood Pressure 125/79 Pulse Oximetry 94 94 Oxygen Delivery Method Room Air Oxygen Flow Rate 0 Narrative Exam Narrative: General: Older gentleman sitting in bed and in no acute distress, well-developed, well-nourished, appropriately interactive. HEENT: Normocephalic, atraumatic. External ears without defect. Pupils equal, round, and reactive to light. Anicteric sclerae, moist conjunctivae, and no lid lag. Pulmonary: Clear to auscultation bilaterally without crackles, wheezes, or rhonchi. Normal respiratory effort with no use of accessory muscles. Abdomen: Soft, obese, bowel sounds present, nontender, nondistended. No hepatosplenomegaly or masses appreciated. Extremities: No clubbing or cyanosis. Left foot withdressing in place that is C/D/I. No appreciable erythema around amputation site. Skin: Normal temperature, turgor, and texture; no rash, ulcers, or subcutaneous nodules appreciated. Neurological: Cranial nerves grossly intact. Psychiatric: Normal mood and affect. Alert and oriented to person, place, and time. Objective Labs Result Diagrams: 09/20/18 08:25 09/20/18 08:25 Assessment & Plan Plan: Assessment/Plan Narrative: Mc Kay a 72-year-old male with a past medical history significant for hypertension, COPD, and peripheral neuropathy who presented from the walk-in clinic for left foot pain and was found to have osteomyelitis and was admitted for further management. 1. Acute osteomyelitis of distal left 3rd toe status post amputation, present on admission. Active. -Left foot x-ray demonstrated osteomyelitis in left 3rd toe now status post left 3rd toe amputation. -Orthopedic surgery has been consulted. We appreciate their care of the patient and recommendations. Ortho recommends keeping incision clean dry and intact with a clean dressing changed as needed. Sutures remain in place approximately 2 weeks. Follow-up with [facility] in 2 weeks. -Toe tissue/bone specimen is growing MSSA and group B strep. Wound culture which is less specific grew MSSA, strep parasanguinis, and prevotella bivia. Blood cultures have been negative to date. -Discontinued vancomycin and levofloxacin. Per Dr. Wong of Infectious Disease, continue cefazolin 2 g every 8 hr for 3-5 days after toe amputation as long as margins are clear. Discussed tissue specimen with Sound Pathologist, Dr. Mendiola, who reports margins are clear. Discussed patient with Dr. Hirsch who agrees with antibiotic plan. 2. Peripheral neuropathy, chronic, present on admission. Stable. -Hemoglobin A1C is 6.5% consistent with diabetes mellitus type 2. B12 level is normal. 3. New diagnosis of diabetes mellitus, type II, chronic, present on admission. Stable. -Initial Hemoglobin A1c elevated at 6.5%. -Serial glucose monitoring. -Discontinued metformin for surgical intervention and will plan to restart at time of discharge. Continue low dose correctional scale insulin if needed and ACHS blood glucose checks. 4. COPD, chronic, present on admission. Stable. -No home medications for COPD, will address if he is symptomatic. 5. Depression, chronic, present on admission. Stable. -Have been holding home Zoloft as patient has not been able to clarify dose. 6. Hypertension, chronic, present on admission. Stable. -Continue home amlodipine. Disposition: Patient may discharge home in 3 days after completion of IV antibiotics.
--- NOTE | 2018-09-21 20:57 | P.PN_ITS ---
Subjective Date Patient Seen: 09/21/18 Interval history: Mc Kay a 72-year-old male with a past medical history significant for hypertension, COPD, and peripheral neuropathy who presented from the walk-in clinic for left foot pain and was found to have osteomyelitis and was admitted for further management. Overnight: The patient was stable overnight and there were no acute events. Today the patient is in better spirits overall. He is resting in bed comfortably and in no acute distress. His foot continues to deny any left foot pain and appears to be healing well. He is eager to go home. He denies headache , shortness of breath, chest pain, abdominal pain, nausea, vomiting, fever, chills, dysuria, diarrhea or constipation. He is voiding and eliminating without difficulty. He is up ambulating well with physical therapy. Exam Vital Signs (past 8 hours): - 09/21/18 15:45 09/21/18 15:59 Temperature 97.7 F Pulse Rate 84 Respiratory Rate 16 Blood Pressure 125/79 Pulse Oximetry 94 94 Oxygen Delivery Method Room Air Oxygen Flow Rate 0 Narrative Exam Narrative: General: Older gentleman sitting in bed and in no acute distress, well- developed, well-nourished, appropriately interactive. HEENT: Normocephalic, atraumatic. External ears without defect. Pupils equal, round, and reactive to light. Anicteric sclerae, moist conjunctivae, and no lid lag. Pulmonary: Clear to auscultation bilaterally without crackles, wheezes, or rhonchi. Normal respiratory effort with no use of accessory muscles. Abdomen: Soft, obese, bowel sounds present, nontender, nondistended. No hepatosplenomegaly or masses appreciated. Extremities: No clubbing or cyanosis. Left foot withdressing in place that is C /D/I. No appreciable erythema around amputation site. Skin: Normal temperature, turgor, and texture; no rash, ulcers, or subcutaneous nodules appreciated. Neurological: Cranial nerves grossly intact. Psychiatric: Normal mood and affect. Alert and oriented to person, place, and time. Objective Labs Result Diagrams: 09/20/18 08:25 09/20/18 08:25 Assessment & Plan Plan: Assessment/Plan Narrative: Mc Kay a 72-year-old male with a past medical history significant for hypertension, COPD, and peripheral neuropathy who presented from the walk-in clinic for left foot pain and was found to have osteomyelitis and was admitted for further management. 1. Acute osteomyelitis of distal left 3rd toe status post amputation, present on admission. Active. -Left foot x-ray demonstrated osteomyelitis in left 3rd toe now status post left 3rd toe amputation. -Orthopedic surgery has been consulted. We appreciate their care of the patient and recommendations. Ortho recommends keeping incision clean dry and intact with a clean dressing changed as needed. Sutures remain in place approximately 2 weeks. Follow-up with [facility] in 2 weeks. -Toe tissue/bone specimen is growing MSSA and group B strep. Wound culture which is less specific grew MSSA, strep parasanguinis, and prevotella bivia. Blood cultures have been negative to date. -Discontinued vancomycin and levofloxacin. Per Dr. Wong of Infectious Disease, continue cefazolin 2 g every 8 hr for 3-5 days after toe amputation as long as margins are clear. Discussed tissue specimen with Sound Pathologist, Dr. Mendiola, who reports margins are clear. Discussed patient with Dr. Hirsch who agrees with antibiotic plan. 2. Peripheral neuropathy, chronic, present on admission. Stable. -Hemoglobin A1C is 6.5% consistent with diabetes mellitus type 2. B12 level is normal. 3. New diagnosis of diabetes mellitus, type II, chronic, present on admission. Stable. -Initial Hemoglobin A1c elevated at 6.5%. -Serial glucose monitoring. -Discontinued metformin for surgical intervention and will plan to restart at time of discharge. Continue low dose correctional scale insulin if needed and ACHS blood glucose checks. 4. COPD, chronic, present on admission. Stable. -No home medications for COPD, will address if he is symptomatic. 5. Depression, chronic, present on admission. Stable. -Have been holding home Zoloft as patient has not been able to clarify dose. 6. Hypertension, chronic, present on admission. Stable. -Continue home amlodipine. Disposition: Patient may discharge home in 3 days after completion of IV antibiotics.
[2018-09-22] MEDS: KETOROLAC 15 MG/ML VIAL IV ×5 (00:49→23:55)
[2018-09-22] MEDS: ACETAMINOPHEN 325 MG TABLET 975 MG PO ×4 (00:49→23:55)
--- NOTE | 2018-09-22 01:19 | PC.NURSE ---
accounts payable supervisor Note: 0030: Awake, up to bathroom independently. Dressing and roselyn wrap to lt foot is cdi. PICC in place in rt upper arm, with dressing cdi. Vital signs stable. Pt denies pain at this time.
[2018-09-22 01:42] VITALS: O2SAT 95
[2018-09-22] MEDS: CEFAZOLIN 2 GM/100 ML FROZ.PIGGY IV ×3 (03:47→20:27)
[2018-09-22 08:00] VITALS: BP 144/92; PULSE 80; RESP 15; TEMP 36.4; O2SAT 92; O2SAT 95
[2018-09-22] MEDS: POLYETHYLENE GLYCOL 3350 17 GM POWD.PACK PO (08:29)
[2018-09-22] MEDS: LACTOBACILLUS ACIDOPHILUS TABLET 1 EACH PO ×2 (08:29→17:00)
[2018-09-22] MEDS: AMLODIPINE 5 MG TABLET 10 MG PO (08:30)
[2018-09-22] MEDS: DOCUSATE 100 MG CAPSULE PO ×2 (08:30→20:27)
--- NOTE | 2018-09-22 11:36 | CM.DPC ---
DCP Cont: Discussed patient in team rounds with Dr. Elena. Stated that patient may need another day of antibiotics, then can go home. P: DCP to continue to follow. If stable, patient may be able to return home after completion of antibiotics. Chloe Copeland RN/Yarn Texture Machine Operator
[2018-09-22 15:48] VITALS: BP 132/75; PULSE 90; RESP 20; TEMP 36.3; O2SAT 94
--- NOTE | 2018-09-22 15:58 | PM.PN.1 ---
Subjective Date Patient Seen: 09/22/18 Interval history: Mc Kay a 72-year-old male with a past medical history significant for hypertension, COPD, and peripheral neuropathy who presented from the walk-in clinic for left foot pain and was found to have osteomyelitis and was admitted for further management. Patient without complaint. Tolerating antibiotic. Exam Vital Signs (past 8 hours): - 09/22/18 08:00 09/22/18 15:48 Temperature 97.5 F L 97.4 F L Pulse Rate 80 90 Respiratory Rate 15 20 Blood Pressure 144/92 H 132/75 Pulse Oximetry 92 94 Oxygen Delivery Method Room Air Oxygen Flow Rate 0 Narrative Exam Narrative: General: Alert, pleasant, cooperative and in no acute distress Objective Labs Result Diagrams: 09/20/18 08:25 09/20/18 08:25 Assessment & Plan Plan: Assessment/Plan Narrative: Mc Kay a 72-year-old male with a past medical history significant for hypertension, COPD, and peripheral neuropathy who presented from the walk-in clinic for left foot pain and was found to have osteomyelitis and was admitted for further management. 1. Acute osteomyelitis of distal left 3rd toe status post amputation, present on admission. Active. -Left foot x-ray demonstrated osteomyelitis in left 3rd toe now status post left 3rd toe amputation on 09/19/2018. -Orthopedic surgery has been consulted. We appreciate their care of the patient and recommendations. Ortho recommends keeping incision clean dry and intact with a clean dressing changed as needed. Sutures remain in place approximately 2 weeks. Follow-up with [facility] in 2 weeks. -Toe tissue/bone specimen is growing MSSA and group B strep. Wound culture which is less specific grew MSSA, strep parasanguinis, and prevotella bivia. Blood cultures have been negative to date. -Discontinued vancomycin and levofloxacin. Per Dr. Wong of Infectious Disease, continue cefazolin 2 g every 8 hr for 3-5 days after toe amputation as long as margins are clear. Discussed tissue specimen with Sound Pathologist, Dr. Mendiola, who reports margins are clear. Discussed patient with Dr. Hirsch who agrees with antibiotic plan. 2. Peripheral neuropathy, chronic, present on admission. Stable. -Hemoglobin A1C is 6.5% consistent with diabetes mellitus type 2. B12 level is normal. 3. New diagnosis of diabetes mellitus, type II, chronic, present on admission. Stable. -Initial Hemoglobin A1c elevated at 6.5%. -Serial glucose monitoring. -Discontinued metformin for surgical intervention and will plan to restart at time of discharge. Continue low dose correctional scale insulin if needed and ACHS blood glucose checks. 4. COPD, chronic, present on admission. Stable. -No home medications for COPD, will address if he is symptomatic. 5. Depression, chronic, present on admission. Stable. -Have been holding home Zoloft as patient has not been able to clarify dose. 6. Hypertension, chronic, present on admission. Stable. -Continue home amlodipine. Disposition: Patient needs 1 more day IV antibiotic and likely can discharge home tomorrow, Monday
[2018-09-22] MEDS: INSULIN ASPART 100 UNIT/ML INSULN PEN SUBCUT (16:58)
[2018-09-22 18:55] VITALS: O2SAT 97
[2018-09-22] MEDS: SODIUM CHLORIDE 0.9% FLUSH 10 ML IV (20:27)
[2018-09-23] VITALS: BP 134/88; PULSE 77; RESP 18; TEMP 36.6; O2SAT 96
--- NOTE | 2018-09-23 00:21 | PC.NURSE ---
Addendum entered by Ricardo Samson R.N. 09/23/18 06:19: 0600: Assisted up to bathroom to take a shower. Foot dressing and PICC dressing wrapped in plastic to keep dry. Original Note: Air Intelligence Specialist Note: 0000: Awake, resting in bed. Dressing to lt foot is cdi with a wrap over dressing. PICC in place in rt upper arm, with dressing cdi. Vital signs stable. Pt denies pain at this time. He states that he is going home in the morning and would like to take a shower some time after 4am.
[2018-09-23] MEDS: CEFAZOLIN 2 GM/100 ML FROZ.PIGGY IV (03:41)
[2018-09-23] MEDS: KETOROLAC 15 MG/ML VIAL IV (06:33)
[2018-09-23 08:00] VITALS: BP 152/99; PULSE 83; RESP 15; TEMP 35.8; O2SAT 95
--- NOTE | 2018-09-23 08:24 | P.DS_ITS ---
History of Present Illness Chief complaint: Infection in foot Narrative: Mr. Kay is a pleasant 72 year old man who has a smelly, tender 3rd toe ulcer on his left foot. 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 He thinks that he may have stubbed the toe in the middle of the night, as he is clumsy. He admits to pain with pressure to the ulcer, but no pain at rest. The pain is localized, non radiating, and not alleviated with NSAIDS. He does not have a history of diabetes, B12 deficiency, eats a varied diet. An xray in the ED shows erosion of the bone and osteomyelitis, but he does not have a leukocytosis. He has a history of a flexor tendon release in the adjacent #2 toe. Discharge Providers Date of admission: 09/15/18 17:36 Primary care physician: Ammon Farah MD Consults: 09/15/18 18:43 Consult to Physician Routine Comment: Consulting Provider: Bernarda Siegel Reason for consultation: Osteomyelitis Has provider been notified: No 09/19/18 11:06 Consult to Occupational Therapy Evaluate & Treat Comment: Physician Instructions: Evaluate and treat Consult to Physical Therapy Evaluate & Treat Comment: Physician Instructions: Evaluate and Treat Discharge provider: Singh Elena MD Discharge Date: 09/23/18 Summary Discharge Diagnosis: 1. Acute osteomyelitis left 3rd toe, with MSSA, strep parasanguinis 2. Type 2 diabetes with peripheral neuropathy 3. COPD without exacerbation 4. Hypertension 5. Depression Hospital Course: Mc Kay a 72-year-old male with a past medical history significant for hypertension, COPD, and peripheral neuropathy who presented from the walk-in clinic for left foot pain and was found to have osteomyelitis and was admitted for further management. 1. Acute osteomyelitis of distal left 3rd toe status post amputation, present on admission. Active. -Left foot x-ray demonstrated osteomyelitis in left 3rd toe, now status post left 3rd toe amputation on 09/19/[address] Moran. -Ortho recommends keeping incision clean dry and intact with a clean dressing changed as needed. Sutures remain in place approximately 2 weeks. Follow-up with [facility] in 1 week. -Toe tissue/bone specimen is growing MSSA and group B strep. Wound culture which is less specific grew MSSA, strep parasanguinis, and prevotella bivia. Blood cultures have been negative to date. -Per Dr. Wong of Infectious Disease, patient received cefazolin 2 g every 8 hr for 4 days after toe amputation. Discussed tissue specimen with Sound Pathologist, Dr. Mendiola, who reports margins are clear. Discussed patient with Dr. Hirsch who agrees with antibiotic plan. 2. Peripheral neuropathy, chronic, present on admission. Stable. -Hemoglobin A1C is 6.5% consistent with diabetes mellitus type 2. B12 level is normal. 3. New diagnosis of diabetes mellitus, type II, chronic, present on admission. Stable. -Initial Hemoglobin A1c elevated at 6.5%. -patient received dietary counseling, advised to monitor glucose once a day , discussed initiating metformin. He will follow up with PCP for further diabetes management. -Discontinued metformin for surgical intervention and will plan to restart at time of discharge. Continue low dose correctional scale insulin if needed and ACHS blood glucose checks. 4. COPD, chronic, present on admission. Stable. -No home medications for COPD, will address if he is symptomatic. 5. Depression, chronic, present on admission. Stable. -Have been holding home Zoloft as patient has not been able to clarify dose. 6. Hypertension, chronic, present on admission. Stable. -Continue home amlodipine. Status at Discharge Functional status at discharge: independent ambulation Time Spent with Patient Greater than 30 minutes Exam Vital Signs (past 8 hours): - 09/23/18 08:00 Temperature 96.5 F L Pulse Rate 83 Respiratory Rate 15 Blood Pressure 152/99 H Pulse Oximetry 95 Oxygen Delivery Method Room Air Oxygen Flow Rate 0 Objective Labs Result Diagrams: 09/20/18 08:25 09/20/18 08:25 Discharge Plan Discharge Plan Patient Disposition: Home Discharge Med Rec/Prescriptions Prescriptions: Continue amlodipine 10 MG tablet 10 mg PO DAILY Qty: 0 RF: 0 CHOLECALCIFEROL (D3-5) 5,000 iu PO DAILY Qty: 0 RF: 0 HOMEOPATHIC SUBSTANCE (SAW [place]METTO) 1 cap PO QDAY Qty: 0 RF: 0 Hydroxytryptophan (#5-HTP) 100 mg PO QDAY Qty: 0 RF: 0 MAGNESIUM (#ELITE MAGNESIUM) 1 tab PO HS Qty: 0 RF: 0 mupirocin 2 % Ointment 1 applic TOPICAL BID RF: 0 Discontinued sulfamethoxazole-trimethoprim [Bactrim DS] 800-160 mg tablet 1 tab PO BID 10 Days Qty: 20 RF: 0 cephalexin 500 mg capsule 500 mg PO BID 10 Days Qty: 20 RF: 0 Follow up/Referrals: Mc Srivastava [Other] - 1 Week Meek Farah MD [Primary Care Provider] - Ashley Hirsch MD [Physician] - (Please follow up 2 weeks after surgery for wound check) Provider Discharge Instructions Diet: Diet as Tolerated Skin/Wound/Dressing Care Report to your healthcare provider any signs of infection, such as:: chills, fever, increased pain, unusual drainage and unusual redness Visit Report/Discharge Packet Instructions: Osteomyelitis, Type 2 Diabetes, Metformin Discharge Data Primary Care Provider: Meek Farah Attending Provider: Jeff Quinonez Admit Date/Time: 09/15/18 17:36
[2018-09-23] MEDS: ACETAMINOPHEN 325 MG TABLET 975 MG PO (09:07)
[2018-09-23] MEDS: LACTOBACILLUS ACIDOPHILUS TABLET 1 EACH PO (09:07)
[2018-09-23] MEDS: DOCUSATE 100 MG CAPSULE PO (09:07)
[2018-09-23] MEDS: AMLODIPINE 5 MG TABLET 10 MG PO (09:07)
[2018-09-23] MEDS: SODIUM CHLORIDE 0.9% FLUSH 10 ML IV (09:08)
[2018-09-23 09:44] VITALS: O2SAT 93
--- NOTE | 2018-09-23 10:27 | PC.NURSE ---
Assess- Pt discharged to home at 1010. Picc line taken out of r.upper extremity and tip intact. Out to car with [employer]ruitment [employer] and son to pick pt up.
== END 2018-09-23 10:10 | disposition home or self-care (01) | DRG 617 ==
LOC: ED 17:32 → AC 17:37 → ICU 17:58 → AC 09-21 09:41
PROVIDERS: Internal Medicine; Orthopaedic Surgery Foot and Ankle Surgery; Admitting Provider Family Medicine; Emergency Provider Emergency Medicine; Family Provider Family Medicine; PCP Family Medicine; Visit Provider Family Medicine
PROC: 0Y6U0Z3 Detachment at Left 3rd Toe, Low, Open Approach (ICD-10-PCS; principal; 2018-09-18 17:30)
DX: E11.69 Type 2 diabetes mellitus with other specified complication (principal); M86.172 Other acute osteomyelitis, left ankle and foot; L97.526 Non-pressure chronic ulcer of other part of left foot with bone involvement without evidence of necrosis; E11.42 Type 2 diabetes mellitus with diabetic polyneuropathy; E11.621 Type 2 diabetes mellitus with foot ulcer; E11.610 Type 2 diabetes mellitus with diabetic neuropathic arthropathy; J44.9 Chronic obstructive pulmonary disease, unspecified; I10 Essential (primary) hypertension; F32.9 Major depressive disorder, single episode, unspecified; B95.61 Methicillin susceptible Staphylococcus aureus infection as the cause of diseases classified elsewhere; B95.4 Other streptococcus as the cause of diseases classified elsewhere
CPT/HCPCS: 36415; 36573; 36591; 71045; 73630; 73660; 76000; 80048; 80053; 82607; 82962; 83036; 83605; 83735; 84145; 85025; 85651; 86140; 87040; 87070; 87075; 87077; 87147; 87186; 87205; 87797; 88305; 88311; 93306; 96365; 97116; 97161; 97530; 99283; 99284; J0690; J1885; J1956; J2250; J2704; J3010

== ENCOUNTER 2018-12-08 11:23 | Emergency (ER) | payer OTHER, MEDICARE, SELFPAY ==
[2018-12-08 11:40] VITALS: BP 128/75; PULSE 77; RESP 14; O2SAT 96
--- NOTE | 2018-12-08 13:26 | ED.SKABFB ---
HPI - Skin/Abscess/Foreign Bdy General Chief complaint: Skin/Abscess/Foreign Body Stated complaint: left foot blister swollen and painful Time Seen by Provider: 12/08/18 13:26 Source: patient Mode of arrival: ambulatory Limitations: no limitations History of Present Illness HPI narrative: This is a 73-year-old male comes to the emergency department with complaint or concern for osteomyelitis in his 2nd toe on the left foot. Patient has pretty severe neuropathy. He does not have much feeling. He states he was wearing a work boot on that rubbed the toe and caused swelling. Since then it has not really improved and he started having discoloration in the last 24 hours. Patient has not had any drainage. He has also noticed a little bit of swelling at the end of the 3rd toe which he had partially amputated in September for osteomyelitis and was hospitalized for that. Patient is prediabetic, he states he has not been told if he has any peripheral arterial disease, he did used to smoke but he has quit. He takes medication for blood pressure and dyslipidemia. Patient did contact the orthopedic office but was told he had to come through the ER for evaluation 1st. Dr. Flores is his regular physician. Related Data Home Medications Medication Instructions Recorded Confirmed CHOLECALCIFEROL (D3-5) 5,000 iu PO DAILY #0 10/14/11 12/08/18 HOMEOPATHIC SUBSTANCE (SAW 1 cap PO QDAY #0 10/14/11 12/08/18 PALMETTO) Hydroxytryptophan (#5-HTP) 100 mg PO QDAY #0 10/14/11 12/08/18 MAGNESIUM (#ELITE MAGNESIUM) 1 tab PO HS #0 10/14/11 12/08/18 amlodipine 10 mg PO DAILY #0 10/14/11 12/08/18 mupirocin 1 applic TOPICAL BID 09/15/18 12/08/18 Previous Rx's Medication Instructions Recorded amoxicillin-pot clavulanate 1 tab PO Q12H #20 tab 12/08/18 [Augmentin] Allergies Allergy/AdvReac Type Severity Reaction Status Date / Time No Known Drug Allergies Allergy Verified 12/08/18 11:03 Review of Systems Review of Systems ROS Unobtainable: All systems reviewed & are unremarkable except as noted in HPI and below Constitutional Denies chills and Denies fever(s) Musculoskeletal Reports as per HPI, Reports numbness (Chronic neuropathy) and Reports other (Swelling and discoloration of the toes of left foot, toe 2 and 3) Integumentary/Breasts Reports as per HPI, Reports lesions, Reports skin swelling, Reports unusual bruising (subungual hematoma 2nd toe) and Reports other (discoloration) Neurologic Denies focal weakness, Reports numbness (Chronic neuropathy) and Reports paresthesias (chronic neuropathy) [facility] Medical History (Updated 12/08/18 @ 15:36 by Jeff Quinonez MD) Pes planus of left foot (Acute) Amputation toe (Chronic) COPD (chronic obstructive pulmonary disease) (Chronic) Depression (Chronic) Hypertension (Chronic) Neuropathy (Chronic) Social History household members: spouse and none Smoking Status: Former smoker alcohol intake: never substance use type: does not use Social History household members: spouse and none Smoking Status: Former smoker alcohol intake: never substance use type: does not use Exam Narrative Exam Narrative: GENERAL: Alert and oriented x three, well-nourished, well-appearing male in no acute distress. HEENT: Head normocephalic, atraumatic, EOMI, pupils reactive, face symmetric, moist mucous membranes NECK: Supple, full range of motion CARDIOVASCULAR: Regular rate and rhythm without murmurs, rubs or gallops. RESPIRATORY: Breath sounds equal bilaterally, no wheezes rales or rhonchi. ABDOMEN: Soft, nontender. Normoactive bowel sounds all 4 quadrants. No guarding or rebound, rigidity, no mass EXTREMITIES: Normal range of motion, no clubbing. Patient has swelling of the distal 2nd toe with subungual hematoma, the nail appears in place and nonraised, patient has some discoloration of the distal end and lateral side of the toe, nontender, patient has cap refill less than 5 seconds, he has palpable pulse in the foot. On his distal 3rd toe there is a partial amputation which appears healed, there is some slight swelling bilaterally patient has no discoloration noted. The skin appears start pink on both toes. NEUROLOGICAL: Cranial nerves II through XII grossly intact. Moving all extremities SKIN: Warm, dry, no petechiae, no rashes or lesions. Initial Vital Signs Initial Vital Signs: Vital Signs Pulse Rate 77 12/08/18 11:40 Respiratory Rate 14 12/08/18 11:40 Blood Pressure 128/75 12/08/18 11:40 Pulse Oximetry 96 12/08/18 11:40 Course Orders Ordered: ED Orders 12/08/18 13:37 XR foot LT min 3V Stat 12/08/18 13:55 Basic Metabolic Panel Stat C-Reactive Protein Quant Stat Complete Blood Count AUTO DIFF Stat Erythrocyte Sedimentation Rate Stat 12/08/18 14:25 Blood Culture Stat 12/08/18 15:27 Education, smoking cessation ONGOING Discontinued Medications Amlodipine Besylate (Norvasc) 10 mg PO DAILY YODIT Enoxaparin Sodium (Lovenox) 40 mg SUBCUT DAILY YODIT Cefazolin Sodium/Dextrose (Ancef) 2 gm in 100 mls @ 200 mls/hr IV Q8H YODIT Non-Formulary Medication (Cholecalciferol (D3-5)) 5,000 iu PO DAILY YODIT Vital Signs - 8 hr 12/08/18 11:40 12/08/18 15:44 Temperature 98.1 F Pulse Rate 77 72 Respiratory Rate 14 Blood Pressure 128/75 Blood Pressure [Left Arm] 135/82 Pulse Oximetry 96 96 MDM - Skin/Abscess/Foreign Bdy Lab Data Attestation: I reviewed the patient's lab results. Result diagrams: 12/08/18 13:55 12/08/18 13:55 Lab Results 12/08/18 12/08/18 Range/Units 13:55 13:55 WBC 7.4 (4.5-11.0) X10^3/uL RBC 4.82 (4.5-5.9) X10^6/uL Hgb 14.3 (13.5-17.5) g/dL Hct 42.6 (41-53) % MCV 88.4 (80-100) fL MCH 29.6 (26-34) PG MCHC 33.5 (30-36) % RDW 13.7 (11.6-14.8) % Plt Count 271 (150-400) X10^3/uL Neut % (Auto) 65.4 (50-75) % Lymph % (Auto) 21.7 L (25-40) % [place] % (Auto) 7.2 (3-14) % Eos % (Auto) 5.1 H (2-4) % Baso % (Auto) 0.6 (0-2) % Neut # (Auto) 4800 (2383-0442) /uL Lymph # (Auto) 1600 (6582-1371) /uL [place] # (Auto) 500 (0-900) /uL Eos # (Auto) 400 (0-450) /uL Baso # (Auto) 0 (0-100) /uL ESR 38 H (0-15) MM/HR Sodium 138 (137-145) mmol/L Potassium 4.0 (3.4-5.1) mmol/L Chloride 104 (98-107) mmol/L Carbon Dioxide 25 (22-32) mmol/L BUN 18 (9-20) mg/dL Creatinine 0.60 L (0.66-1.25) mg/dL Estimated GFR > 60.0 (>60) mL/min BUN/Creatinine Ratio 30.0 H (6-22) Glucose 135 H (80-110) mg/dL Calcium 9.1 (8.4-10.2) mg/dL C-Reactive Protein 2.4 H (<1.0) mg/dL Imaging Data xray left foot: Radiologist's impression: [place] [address] XRay Report Signed Patient: Mc Kay [facility]#: [id number] : 1946Acct:[id number] Age/Sex: 73 / MDate of Service: 12/08/18 Loc: ED Accession Number: [id number] Procedure: XR foot LT min 3V Ordering Provider: Manuela Rivas D.O. PROCEDURE: XR FOOT LT MIN 3V INDICATIONS: 2nd/3rd toe, concern for osteomyelitis, infection TECHNIQUE: 3 views of the foot were acquired. COMPARISON: None. FINDINGS: Bones: No fractures or dislocations. No suspicious bony lesions. There is severe mid foot and hindfoot joint degeneration with sclerosis and deformity. Plantar posterior calcaneal spurring is noted. Diffuse interphalangeal joint degeneration and amputation of the third toe the level of the DIP joint. No definite focal osseous destruction. There is erosive appearance present at the base of the first metatarsal although probably chronic given the sclerotic margins. Soft tissues: No tibiotalar joint effusion. Achilles tendon appears normal. IMPRESSION: No focal osseous destruction to suggest advanced osteomyelitis, in particular at the second and third toe. If there is persistent clinical concern, continued short interval radiographic followup or contrast enhanced MRI could be performed to assess for early infection. Chronic appearing erosive appearance of the base of the first metatarsal. Diffuse midfoot joint degeneration, suspicious for neuropathic arthropathy. Dictated by: Juanpablo Tai M.D. on 12/08/2018 at 14:29 Approved by: Juanpablo Tai M.D. on 12/08/2018 at 14:32 [facility] Narrative Medical decision making narrative: Discussed with Dr. Quinonez the hospitalist he accepts but then spoke with Dr. Ceballos from Orthopedic surgery who states patient could follow up outpatient with Orthopedic surgery on Monday, he can see Dr. Moran who he has seen before. He recommended starting on Augmentin which seems consistent with the antibiotics he was on last hospitalization which was has cefazolin. He states that they can do debridement in the office secondary to patient's extensive neuropathy. Discussed with patient he is okay with this plan. Did discuss he can return at any time if he is having worsening symptoms or difficulty with follow up. Discharge Plan Departure Patient Disposition: Home Clinical Impression: Acute osteomyelitis of toe Discharge Date/Time: 12/08/18 16:12 Interventions: ED Discharge Assessment Last Done: 12/08/18 16:06 Instructions: DI for Osteomyelitis Activity Restrictions/Additional Instructions: Follow up with Dr. Hirsch on Monday, call for an appointment Monday morning. Your case was discussed with Dr. Ceballos via Dr. Quinonez. Start Augmentin today, take until cleared by orthopedic surgery. Your prescription was sent to [facility] in [place]. Return to ER for fevers, redness continuing to spreading up the leg or foot, new pain, discharge from the toe/foot or other new or concerning symptoms. Prescriptions: New amoxicillin-pot clavulanate [Augmentin] 875-125 mg tablet 1 tab PO Q12H Qty: 20 RF: 0 No Action amlodipine 10 MG tablet 10 mg PO DAILY Qty: 0 RF: 0 CHOLECALCIFEROL (D3-5) 5,000 iu PO DAILY Qty: 0 RF: 0 HOMEOPATHIC SUBSTANCE (SAW PALMETTO) 1 cap PO QDAY Qty: 0 RF: 0 Hydroxytryptophan (#5-HTP) 100 mg PO QDAY Qty: 0 RF: 0 MAGNESIUM (#ELITE MAGNESIUM) 1 tab PO HS Qty: 0 RF: 0 mupirocin 2 % Ointment 1 applic TOPICAL BID RF: 0 Referrals: Meek Farah MD [Primary Care Provider] -
--- NOTE | 2018-12-08 13:37 | DI.RAD.S_ITS ---
PROCEDURE: XR FOOT LT MIN 3V INDICATIONS: 2nd/3rd toe, concern for osteomyelitis, infection TECHNIQUE: 3 views of the foot were acquired. COMPARISON: None. FINDINGS: Bones: No fractures or dislocations. No suspicious bony lesions. There is severe mid foot and hindfoot joint degeneration with sclerosis and deformity. Plantar posterior calcaneal spurring is noted. Diffuse interphalangeal joint degeneration and amputation of the third toe the level of the DIP joint. No definite focal osseous destruction. There is erosive appearance present at the base of the first metatarsal although probably chronic given the sclerotic margins. Soft tissues: No tibiotalar joint effusion. Achilles tendon appears normal. IMPRESSION: No focal osseous destruction to suggest advanced osteomyelitis, in particular at the second and third toe. If there is persistent clinical concern, continued short interval radiographic followup or contrast enhanced MRI could be performed to assess for early infection. Chronic appearing erosive appearance of the base of the first metatarsal. Diffuse midfoot joint degeneration, suspicious for neuropathic arthropathy. Dictated by: Juanpablo Tai M.D. on 12/08/2018 at 14:29 Approved by: Juanpablo Tai M.D. on 12/08/2018 at 14:32
--- NOTE | 2018-12-08 13:44 | ED_ITS ---
HPI - Skin/Abscess/Foreign Bdy General Chief complaint: Skin/Abscess/Foreign Body Stated complaint: left foot blister swollen and painful Time Seen by Provider: 12/08/18 13:26 Source: patient Mode of arrival: ambulatory Limitations: no limitations History of Present Illness HPI narrative: This is a 73-year-old male comes to the emergency department with complaint or concern for osteomyelitis in his 2nd toe on the left foot. Patient has pretty severe neuropathy. He does not have much feeling. He states he was wearing a work boot on that rubbed the toe and caused swelling. Since then it has not really improved and he started having discoloration in the last 24 hours. Patient has not had any drainage. He has also noticed a little bit of swelling at the end of the 3rd toe which he had partially amputated in September for osteomyelitis and was hospitalized for that. Patient is prediabetic, he states he has not been told if he has any peripheral arterial disease, he did used to smoke but he has quit. He takes medication for blood pressure and dyslipidemia. Patient did contact the orthopedic office but was told he had to come through the ER for evaluation 1st. Dr. Flores is his regular physician. Related Data Home Medications Medication Instructions Recorded Confirmed CHOLECALCIFEROL (D3-5) 5,000 iu PO DAILY #0 10/14/11 12/08/18 HOMEOPATHIC SUBSTANCE (SAW 1 cap PO QDAY #0 10/14/11 12/08/18 PALMETTO) Hydroxytryptophan (#5-HTP) 100 mg PO QDAY #0 10/14/11 12/08/18 MAGNESIUM (#ELITE MAGNESIUM) 1 tab PO HS #0 10/14/11 12/08/18 amlodipine 10 mg PO DAILY #0 10/14/11 12/08/18 mupirocin 1 applic TOPICAL BID 09/15/18 12/08/18 Previous Rx's Medication Instructions Recorded amoxicillin-pot clavulanate 1 tab PO Q12H #20 tab 12/08/18 [Augmentin] Allergies Allergy/AdvReac Type Severity Reaction Status Date / Time No Known Drug Allergies Allergy Verified 12/08/18 11:03 Review of Systems Review of Systems ROS Unobtainable: All systems reviewed & are unremarkable except as noted in HPI and below Constitutional Denies chills and Denies fever(s) Musculoskeletal Reports as per HPI, Reports numbness (Chronic neuropathy) and Reports other (Swelling and discoloration of the toes of left foot, toe 2 and 3) Integumentary/Breasts Reports as per HPI, Reports lesions, Reports skin swelling, Reports unusual bruising (subungual hematoma 2nd toe) and Reports other (discoloration) Neurologic Denies focal weakness, Reports numbness (Chronic neuropathy) and Reports paresthesias (chronic neuropathy) [facility] Medical History (Updated 12/08/18 @ 15:36 by Jeff Quinonez MD) Pes planus of left foot (Acute) Amputation toe (Chronic) COPD (chronic obstructive pulmonary disease) (Chronic) Depression (Chronic) Hypertension (Chronic) Neuropathy (Chronic) Social History household members: spouse and none Smoking Status: Former smoker alcohol intake: never substance use type: does not use Social History household members: spouse and none Smoking Status: Former smoker alcohol intake: never substance use type: does not use Exam Narrative Exam Narrative: GENERAL: Alert and oriented x three, well-nourished, well- appearing male in no acute distress. HEENT: Head normocephalic, atraumatic, EOMI, pupils reactive, face symmetric, moist mucous membranes NECK: Supple, full range of motion CARDIOVASCULAR: Regular rate and rhythm without murmurs, rubs or gallops. RESPIRATORY: Breath sounds equal bilaterally, no wheezes rales or rhonchi. ABDOMEN: Soft, nontender. Normoactive bowel sounds all 4 quadrants. No guarding or rebound, rigidity, no mass EXTREMITIES: Normal range of motion, no clubbing. Patient has swelling of the distal 2nd toe with subungual hematoma, the nail appears in place and nonraised, patient has some discoloration of the distal end and lateral side of the toe, nontender, patient has cap refill less than 5 seconds, he has palpable pulse in the foot. On his distal 3rd toe there is a partial amputation which appears healed, there is some slight swelling bilaterally patient has no discoloration noted. The skin appears start pink on both toes. NEUROLOGICAL: Cranial nerves II through XII grossly intact. Moving all extremities SKIN: Warm, dry, no petechiae, no rashes or lesions. Initial Vital Signs Initial Vital Signs: Vital Signs Pulse Rate 77 12/08/18 11:40 Respiratory Rate 14 12/08/18 11:40 Blood Pressure 128/75 12/08/18 11:40 Pulse Oximetry 96 12/08/18 11:40 Course Orders Ordered: ED Orders 12/08/18 13:37 XR foot LT min 3V Stat 12/08/18 13:55 Basic Metabolic Panel Stat C-Reactive Protein Quant Stat Complete Blood Count AUTO DIFF Stat Erythrocyte Sedimentation Rate Stat 12/08/18 14:25 Blood Culture Stat 12/08/18 15:27 Education, smoking cessation ONGOING Discontinued Medications Amlodipine Besylate (Norvasc) 10 mg PO DAILY YODIT Enoxaparin Sodium (Lovenox) 40 mg SUBCUT DAILY YODIT Cefazolin Sodium/Dextrose (Ancef) 2 gm in 100 mls @ 200 mls/hr IV Q8H YODIT Non-Formulary Medication (Cholecalciferol (D3-5)) 5,000 iu PO DAILY YODIT Vital Signs - 8 hr 12/08/18 11:40 12/08/18 15:44 Temperature 98.1 F Pulse Rate 77 72 Respiratory Rate 14 Blood Pressure 128/75 Blood Pressure [Left Arm] 135/82 Pulse Oximetry 96 96 MDM - Skin/Abscess/Foreign Bdy Lab Data Attestation: I reviewed the patient's lab results. Result diagrams: 12/08/18 13:55 12/08/18 13:55 Lab Results 12/08/18 12/08/18 Range/Units 13:55 13:55 WBC 7.4 (4.5-11.0) X10^3/uL RBC 4.82 (4.5-5.9) X10^6/uL Hgb 14.3 (13.5-17.5) g/dL Hct 42.6 (41-53) % MCV 88.4 (80-100) fL MCH 29.6 (26-34) PG MCHC 33.5 (30-36) % RDW 13.7 (11.6-14.8) % Plt Count 271 (150-400) X10^3/uL Neut % (Auto) 65.4 (50-75) % Lymph % (Auto) 21.7 L (25-40) % [place] % (Auto) 7.2 (3-14) % Eos % (Auto) 5.1 H (2-4) % Baso % (Auto) 0.6 (0-2) % Neut # (Auto) 4800 (2383-4867) /uL Lymph # (Auto) 1600 (2129-4456) /uL [place] # (Auto) 500 (0-900) /uL Eos # (Auto) 400 (0-450) /uL Baso # (Auto) 0 (0-100) /uL ESR 38 H (0-15) MM/HR Sodium 138 (137-145) mmol/L Potassium 4.0 (3.4-5.1) mmol/L Chloride 104 (98-107) mmol/L Carbon Dioxide 25 (22-32) mmol/L BUN 18 (9-20) mg/dL Creatinine 0.60 L (0.66-1.25) mg/dL Estimated GFR > 60.0 (>60) mL/min BUN/Creatinine Ratio 30.0 H (6-22) Glucose 135 H (80-110) mg/dL Calcium 9.1 (8.4-10.2) mg/dL C-Reactive Protein 2.4 H (<1.0) mg/dL Imaging Data xray left foot: Radiologist's impression: [place] [address] XRay Report Signed Patient: Mc Kay [facility]#: [id number] : 1946Acct:[id number] Age/Sex: 73 / MDate of Service: 12/08/18 Loc: ED Accession Number: [id number] Procedure: XR foot LT min 3V Ordering Provider: Manuela Rivas D.O. PROCEDURE: XR FOOT LT MIN 3V INDICATIONS: 2nd/3rd toe, concern for osteomyelitis, infection TECHNIQUE: 3 views of the foot were acquired. COMPARISON: None. FINDINGS: Bones: No fractures or dislocations. No suspicious bony lesions. There is severe mid foot and hindfoot joint degeneration with sclerosis and deformity. Plantar posterior calcaneal spurring is noted. Diffuse interphalangeal joint degeneration and amputation of the third toe the level of the DIP joint. No definite focal osseous destruction. There is erosive appearance present at the base of the first metatarsal although probably chronic given the sclerotic margins. Soft tissues: No tibiotalar joint effusion. Achilles tendon appears normal. IMPRESSION: No focal osseous destruction to suggest advanced osteomyelitis, in particular at the second and third toe. If there is persistent clinical concern, continued short interval radiographic followup or contrast enhanced MRI could be performed to assess for early infection. Chronic appearing erosive appearance of the base of the first metatarsal. Diffuse midfoot joint degeneration, suspicious for neuropathic arthropathy. Dictated by: Juanpablo Tai M.D. on 12/08/2018 at 14:29 Approved by: Juanpablo Tai M.D. on 12/08/2018 at 14:32 [facility] Narrative Medical decision making narrative: Discussed with Dr. Quinonez the hospitalist he accepts but then spoke with Dr. Ceballos from Orthopedic surgery who states patient could follow up outpatient with Orthopedic surgery on Monday, he can see Dr. Moran who he has seen before. He recommended starting on Augmentin which seems consistent with the antibiotics he was on last hospitalization which was has cefazolin. He states that they can do debridement in the office secondary to patient's extensive neuropathy. Discussed with patient he is okay with this plan. Did discuss he can return at any time if he is having worsening symptoms or difficulty with follow up. Discharge Plan Departure Patient Disposition: Home Clinical Impression: Acute osteomyelitis of toe Discharge Date/Time: 12/08/18 16:12 Interventions: ED Discharge Assessment Last Done: 12/08/18 16:06 Instructions: DI for Osteomyelitis Activity Restrictions/Additional Instructions: Follow up with Dr. Hirsch on Monday, call for an appointment Monday morning. Your case was discussed with Dr. Ceballos via Dr. Quinonez. Start Augmentin today, take until cleared by orthopedic surgery. Your prescription was sent to [facility] in [place]. Return to ER for fevers, redness continuing to spreading up the leg or foot, new pain, discharge from the toe/foot or other new or concerning symptoms. Prescriptions: New amoxicillin-pot clavulanate [Augmentin] 875-125 mg tablet 1 tab PO Q12H Qty: 20 RF: 0 No Action amlodipine 10 MG tablet 10 mg PO DAILY Qty: 0 RF: 0 CHOLECALCIFEROL (D3-5) 5,000 iu PO DAILY Qty: 0 RF: 0 HOMEOPATHIC SUBSTANCE (SAW PALMETTO) 1 cap PO QDAY Qty: 0 RF: 0 Hydroxytryptophan (#5-HTP) 100 mg PO QDAY Qty: 0 RF: 0 MAGNESIUM (#ELITE MAGNESIUM) 1 tab PO HS Qty: 0 RF: 0 mupirocin 2 % Ointment 1 applic TOPICAL BID RF: 0 Referrals: Meek Farah MD [Primary Care Provider] -
--- NOTE | 2018-12-08 14:05 | PC.NURSE ---
pt reports, left 2nd digit injury 10 days ago, the last 2 days, worsening swelling and redness noted. denies fever,voming.
[2018-12-08 14:11] LABS: Add Manual Diff / Slide Review NO; Basophils Absolute Auto 0 /uL (0-100); Basophils Percent Auto 0.6 % (0-2); Eosinophils Absolute Auto 400 /uL (0-450); Eosinophils Percent Auto 5.1 % (2-4); Hematocrit 42.6 % (41-53); Hemoglobin 14.3 g/dL (13.5-17.5); Lymphocytes Absolute Auto 1600 /uL (1100-4500); Lymphocytes Percent Auto 21.7 % (25-40); Mean Corpuscular HGB Conc 33.5 % (30-36); Mean Corpuscular Hemoglobin 29.6 PG (26-34); Mean Corpuscular Volume 88.4 fL (80-100); Monocytes Absolute Auto 500 /uL (0-900); Monocytes Percent Auto 7.2 % (3-14); Neutrophils Absolute Auto 4800 /uL (1500-7000); Neutrophils Percent Auto 65.4 % (50-75); Platelet Count 271 X10^3/uL (150-400); Red Blood Cell Count 4.82 X10^6/uL (4.5-5.9); Red Cell Distribution Width 13.7 % (11.6-14.8); White Blood Cell Count 7.4 X10^3/uL (4.5-11.0)
[2018-12-08 14:25] LABS: Blood Urea Nitrogen 18 mg/dL (9-20); C-Reactive Protein Quant 2.4 mg/dL (<1.0); Calcium 9.1 mg/dL (8.4-10.2); Carbon Dioxide 25 mmol/L (22-32); Chloride 104 mmol/L (98-107); Estimated Glomerular Filt Rate > 60.0 mL/min (>60); Glucose 135 mg/dL (80-110); HEMOLYSIS < 15 (0-50); Sodium 138 mmol/L (137-145)
[2018-12-08 14:30] LABS: Erythrocyte Sedimentation Rate 38 MM/HR (0-15)
--- NOTE | 2018-12-08 15:33 | PM.HP.1 ---
History of Present Illness Chief complaint: left foot blister swollen and painful Patient History Medical History (Updated 12/08/18 @ 15:36 by Jeff Quinonez MD) Pes planus of left foot (Acute) Amputation toe (Chronic) COPD (chronic obstructive pulmonary disease) (Chronic) Depression (Chronic) Hypertension (Chronic) Neuropathy (Chronic) Social History household members: spouse and none Smoking Status: Former smoker alcohol intake: never substance use type: does not use Family & Social History Social History: household members spouse,none Safety & Behavioral: Feels Safe in Current Yes Environment Been Physically Hurt or No Threatened By a Person Tobacco & Substance use: Tobacco type cigarettes Smoking Status Former smoker alcohol intake never alcohol intake frequency 0-2 drinks per day Substance Use Type does not use Meds Home Medications Medication Instructions Recorded Confirmed Type CHOLECALCIFEROL (D3-5) 5,000 iu PO DAILY #0 10/14/11 12/08/18 History HOMEOPATHIC SUBSTANCE (SAW 1 cap PO QDAY #0 10/14/11 12/08/18 History PALMETTO) Hydroxytryptophan (#5-HTP) 100 mg PO QDAY #0 10/14/11 12/08/18 History MAGNESIUM (#ELITE MAGNESIUM) 1 tab PO HS #0 10/14/11 12/08/18 History amlodipine 10 mg PO DAILY #0 10/14/11 12/08/18 History mupirocin 1 applic TOPICAL BID 09/15/18 12/08/18 History Allergies Allergy/AdvReac Type Severity Reaction Status Date / Time No Known Drug Allergies Allergy Verified 12/08/18 11:03 Review of Systems Review of Systems No fevers, chills, sweats, nausea, vomiting, abdominal pain, chest pain, coughing, headaches, seizures, joint pain, headaches, All systems reviewed & are unremarkable except as noted in HPI and below Exam Vital Signs (past 8 hours): - 12/08/18 11:40 Pulse Rate 77 Respiratory Rate 14 Blood Pressure 128/75 Pulse Oximetry 96 Oxygen Delivery Method Room Air Objective Labs Result Diagrams: 12/08/18 13:55 12/08/18 13:55 Labs: Laboratory Results - last 24 hr 12/08/18 12/08/18 13:55 13:55 WBC 7.4 RBC 4.82 Hgb 14.3 Hct 42.6 MCV 88.4 MCH 29.6 MCHC 33.5 RDW 13.7 Plt Count 271 Neut % (Auto) 65.4 Lymph % (Auto) 21.7 L [place] % (Auto) 7.2 Eos % (Auto) 5.1 H Baso % (Auto) 0.6 Neut # (Auto) 4800 Lymph # (Auto) 1600 [place] # (Auto) 500 Eos # (Auto) 400 Baso # (Auto) 0 ESR 38 H Sodium 138 Potassium 4.0 Chloride 104 Carbon Dioxide 25 BUN 18 Creatinine 0.60 L Estimated GFR > 60.0 BUN/Creatinine Ratio 30.0 H Glucose 135 H Calcium 9.1 C-Reactive Protein 2.4 H Assessment & Plan (1) Left foot infection: Current visit: Yes Status: Acute (2) Pes planus of left foot: Current visit: Yes Status: Acute (3) Neuropathic ulcer of foot: Current visit: Yes Status: Acute (4) Essential hypertension: Current visit: Yes Status: Acute
[2018-12-08 15:44] VITALS: BP 135/82; PULSE 72; TEMP 36.7; O2SAT 96
--- NOTE | 2018-12-09 17:22 | PC.NURSE ---
late note, medication ordered by dr novoa not given, pt dc home.
== END 2018-12-08 16:12 | disposition home or self-care (01) ==
PROVIDERS: Emergency Provider Emergency Medicine; Family Provider Family Medicine; PCP Family Medicine
DX: M86.172 Other acute osteomyelitis, left ankle and foot (principal); M79.675 Pain in left toe(s)
CPT/HCPCS: 36591; 73630; 80048; 85025; 85651; 86140; 87040; 99282; 99284

== ENCOUNTER → 2020-03-11 10:41 | Outpatient (CLI) | payer OTHER, MEDICARE, SELFPAY ==
[2018-12-08 10:47] VITALS: BMI 35.3
[2020-03-11 10:55] LABS: Bacteria Urine None Seen; WBC Urine None Seen (0-5/HPF)
[2020-03-11 11:18] LABS: Add Manual Diff / Slide Review NO; Appearance Urine UA CLEAR; Basophils Absolute Auto 0 /uL (0-100); Basophils Percent Auto 0.5 % (0-2); Bilirubin Urine UA NEGATIVE (NEGATIVE); Color Urine UA YELLOW; Eosinophils Absolute Auto 300 /uL (0-450); Eosinophils Percent Auto 4.4 % (2-4); Glucose Urine UA NEGATIVE (Negative); Hemoglobin 14.3 g/dL (13.5-17.5); Ketones Urine UA NEGATIVE (NEGATIVE); Leukocyte Esterase Urine UA NEGATIVE (NEGATIVE); Lymphocytes Absolute Auto 1300 /uL (1100-4500); Lymphocytes Percent Auto 18.7 % (25-40); Mean Corpuscular HGB Conc 34.1 % (30-36); Mean Corpuscular Volume 87.9 fL (80-100); Monocytes Absolute Auto 500 /uL (0-900); Monocytes Percent Auto 7.7 % (3-14); Neutrophils Absolute Auto 4800 /uL (1500-7000); Neutrophils Percent Auto 68.7 % (50-75); Nitrite Urine UA NEGATIVE (Negative); Occult Blood Urine UA 1+ (Negative); Platelet Count 247 X10^3/uL (150-400); Protein Urine UA NEGATIVE (Negative); Red Blood Cell Count 4.78 X10^6/uL (4.5-5.9); Red Cell Distribution Width 13.8 % (11.6-14.8); Specific Gravity Urine UA 1.015 (1.000-1.035); Urobilinogen Urine UA 0.2 E.U./dL (0.2); White Blood Cell Count 7.1 X10^3/uL (4.5-11.0); pH Urine UA 5.5 (4.5-8.0)
[2020-03-11 11:30] LABS: Culture Indicated Urine Cult Not Indicated; RBC Urine 5-10/HPF (0-5/HPF)
[2020-03-11 11:35] LABS: Hemoglobin A1C% w Est Avg Glu 6.3 % (4.0-6.0)
[2020-03-11 11:36] LABS: BUN Creatinine Ratio 22.8 (6-22); Blood Urea Nitrogen 13 mg/dL (9-20); Calcium 9.1 mg/dL (8.4-10.2); Carbon Dioxide 28 mmol/L (22-32); Chloride 101 mmol/L (98-107); Estimated Glomerular Filt Rate > 60.0 mL/min (>60); Glucose 98 mg/dL (80-110); HEMOLYSIS < 15 (0-50); Potassium 3.9 mmol/L (3.4-5.1); Sodium 136 mmol/L (137-145)
== END ==
PROVIDERS: Family Provider Family Medicine; PCP Family Medicine; Referring Provider Orthopaedic Surgery; Visit Provider Orthopaedic Surgery
DX: Z01.812 Encounter for preprocedural laboratory examination (principal); Z01.818 Encounter for other preprocedural examination; R73.9 Hyperglycemia, unspecified; N39.0 Urinary tract infection, site not specified
CPT/HCPCS: 36415; 80048; 81001; 83036; 85025; 93005; 93010

== ENCOUNTER → 2020-03-31 16:05 | Outpatient (CLI) | payer OTHER, MEDICARE, SELFPAY ==
[2018-12-08 10:47] VITALS: BMI 35.3
--- NOTE | 2020-03-31 16:11 | DI.MRI.S_ITS ---
PROCEDURE: MR KNEE LT WO CON INDICATIONS: PAIN LEFT KNEE TECHNIQUE: Noncontrast sagittal PD fast spin echo and T2 fast spin echo with fat saturation, sagittal 3-D FLASH with fat saturation; coronal T1 spin echo and PD fast spin echo with fat saturation, and axial PD fast spin echo with fat saturation through the knee. COMPARISON: None. FINDINGS: Image quality: Excellent. Menisci: Complex tear involving body and posterior horn of medial meniscus is seen extending to both superior and inferior articulating surfaces. Peripheral displacement of medial meniscus is noted bowing medial collateral ligament. There is no evidence of focal lateral meniscal tear. The meniscal root ligaments appear intact. Cruciate ligaments: The anterior and posterior cruciate ligaments appear intact. Medial structures: Low-grade MCL sprain is seen. The posterior oblique ligament, semimembranosus tendon insertions, oblique popliteal ligament, and meniscocapsular junction appear intact. Visualized portions of the pes anserinus tendons appear normal. No abnormal bursal fluid. Lateral structures: The lateral collateral ligament, long and short heads of the biceps femoris tendon appear intact. The popliteus tendon appears normal; the popliteofibular ligament appears intact. The posterosuperior and anteroinferior popliteomeniscal fascicles appear intact. The arcuate and fabellofibular ligaments appear intact, on either side of the lateral inferior geniculate artery. Iliotibial band appears normal. Anterior structures: The quadriceps and patellar tendons appear intact. Patellar alignment is normal. No femoral trochlear dysplasia or ventral trochlear prominence. No edema in the infrapatellar fat pad. Bones and cartilage: Moderate tricompartmental osteoarthritis and chondromalacia is seen most prominent in medial femoral tibial compartment. Small 2-3 mm osteochondral lesions are not likely present in weight-bearing portion of medial femoral condyle with mild surrounding edema. No fracture or dislocation. Joint space: There is small to moderate amount of joint fluid. No Rios's cyst. Thickened synovial lining is seen, which may represent synovitis. IMPRESSION: 1. Complex tear involving body and posterior horn of medial meniscus extending to both superior and inferior articulating surfaces. Truncated appearance of anterior horn medial meniscus. No evidence of focal lateral meniscal tear. 2. Cruciate ligaments are intact. Low-grade MCL sprain. 3. Moderate tricompartmental osteoarthritis and chondromalacia most prominent in medial femoral tibial compartment as above. 4. Small to moderate amount of joint effusion and thickened synovial lining suggestive of synovitis. Dictated by: Bonilla Witt M.D. on 04/01/2020 at 10:13 Approved by: Bonilla Witt M.D. on 04/01/2020 at 10:17
== END ==
PROVIDERS: Family Provider Family Medicine; PCP Family Medicine; Referring Provider Orthopaedic Surgery; Visit Provider Orthopaedic Surgery
DX: M25.562 Pain in left knee (principal); S83.232A Complex tear of medial meniscus, current injury, left knee, initial encounter; S83.412A Sprain of medial collateral ligament of left knee, initial encounter; M17.12 Unilateral primary osteoarthritis, left knee; M94.262 Chondromalacia, left knee; M25.462 Effusion, left knee
CPT/HCPCS: 73721

== ENCOUNTER → 2020-04-27 11:31 | Outpatient (CLI) | payer OTHER, MEDICARE, SELFPAY ==
[2018-12-08 10:47] VITALS: BMI 35.3
[2020-04-28 20:11] LABS: COVID19 Sendout Not Detected (Not Detect)
== END ==
PROVIDERS: Family Provider Family Medicine; PCP Family Medicine; Visit Provider Physician Assistant
DX: Z11.59 Encounter for screening for other viral diseases (principal)
CPT/HCPCS: 87635

== ENCOUNTER 2020-05-01 10:15 | Observation (INO) | payer OTHER, MEDICARE, SELFPAY ==
[2018-12-08 10:47] VITALS: BMI 35.3
[2020-04-22 08:24] VITALS: BMI 35.2
[2020-04-30] VITALS (15 sets, daily range): BP systolic 97–152; BP diastolic 60–83; PULSE 72–95; RESP 10–19; TEMP 36.2–37; O2SAT 93–100; BMI 34.5
--- NOTE | 2020-04-30 06:00 | DI.RAD.S_ITS ---
PROCEDURE: XR KNEE LT 1TO2V INDICATIONS: total left knee TECHNIQUE: 2 view(s) of the knee acquired. COMPARISON: None. FINDINGS: Bones: Patient is status post left knee joint arthroplasty. Hardware components are in expected positions. Visualized bony structures are intact. Soft tissues: Overlying postoperative changes are noted. IMPRESSION: Expected postsurgical change for left knee arthroplasty. Dictated by: Maira Mcclure MD, PhD on 04/30/2020 at 15:32 Approved by: Maira Mcclure MD, PhD on 04/30/2020 at 15:33
[2020-04-30] MEDS: ACETAMINOPHEN 325 MG TABLET 975 MG PO (10:05)
[2020-04-30] MEDS: CELECOXIB 200 MG CAPSULE PO (10:06)
[2020-04-30] MEDS: PREGABALIN 75 MG CAPSULE PO (10:07)
[2020-04-30] MEDS: LACTATED RINGERS 1,000 ML 42 ML IV ×2 (10:16→14:07)
[2020-04-30] MEDS: VANCOMYCIN 1,000 MG/200 ML PIGGYBACK 200 MG IV (10:36)
--- NOTE | 2020-04-30 11:31 | PC.NURSE ---
Day shift: Pt not on AC unit at this time.
--- NOTE | 2020-04-30 11:32 | PM.PREOP ---
Pre-operative Note COVID-19 COVID-19 status: Negative Interval Note History & Physical reviewed/Exam performed by Physician: Yes Changes to H&P: No H&P completed within 30 days and has changed as indicated here:: HEENT benign, cor regular rate and rhythm, lungs clear, abdomen obese but soft and benign, left knee severe pain with range of motion
--- NOTE | 2020-04-30 11:33 | P.OP_ITS ---
Operative Date/Time/Diagnoses Date of procedure: 04/30/20 Time of procedure: 11:59 Pre-op diagnosis: Severe left knee osteoarthritis Post-op diagnosis: same Procedure & Clinicians Procedure: Left total knee arthroplasty Same procedure as scheduled: Yes Indications: The patient has had progressively worsening left knee pain with radiographic changes consistent with arthritis. Non-operative management has failed and the patient has requested total knee replacement. The risks, benefits and alternatives to surgery were discussed with the patient prior to proceeding. Risks discussed included, but were not limited to, failure to relieve pain, stiffness, infection, nerve damage, deep venous thrombosis, pulmonary embolism, stroke, coma, heart attack, permanent paralysis and , as well as the potential need for eventual revision of the prosthetic. Surgeon: Bernarda Siegel Licensed Optician: Rosalino Sherwood Anesthesia Type: General and Spinal Operative Notes Findings: Severe left knee osteoarthritis, adequate bone, adequate stability Closure Type: primary Specimen(s): none sent Prosthetic devices, grafts, tissues, transplants, or devices: [facility] 2 size 8 femur, size 6 tibia, +9 poly, 38 mm patella Applied: drain(s) Estimated Blood Loss (mL): 250 Blood products transfused: none Tourniquet time (min): 100 Procedure in detail: The patient was seen in the pre-operative area, where the patient identified the left knee as the operative site and this was marked with my initials. The patient received pre-operative antibiotics, and was taken to the operating room and placed on the operative table in the supine position. After satisfactory anesthesia, a gis analyst out was performed. The left leg was encircled with a tourniquet about the proximal thigh, and the leg was prepared from the toes to the tourniquet with ChloroPrep in the usual fashion and draped through sterile drapes. The leg was elevated and exsanguinated with Eschmark bandage and the tourniquet inflated to [250] mmHg pressure. The knee was approached through an approximately 18 cm incision centered over the patella and carried into the knee through a medial parapatellar arthrotomy. A portion of the medial and lateral meniscus was resected. Soft tissue was carefully mobilized around the patella the patella was measured with a caliper. Bone was resected from the patella and the patellar height was reconstituted with up an appropriate sized patellar component. A cover was then placed on the patella. A small amount of additional medial and lateral meniscus was resected. The visionare guide fit well to the distal femur. It looked like an appropriate distal femoral cut and the cut was made without difficulty. The rotation was assessed and the appropriate size femoral guide was placed on the distal femur and finishing cuts were made. There was no evidence of notching. The anterior, posterior and chamfer cuts were then made. The posterior osteophytes and soft tissues were then removed. The posterior capsule was injected with part of a mixture of 60 ml 0.25% Marcaine mixed with 20 ml Exparel for post operative pain control. The remainder of this mixture was injected into the capsule and subcutaneous tissues during cement curing. The tibia was prepared and the visionaire guide fit well to the distal tibia. The rotation was assessed. The patient was placed in extension residual medial and lateral meniscus as well as any residual bone was carefully resected. [No] additional tibia was resected. Hemostasis was achieved especially posteriorly. A dditional local was injected into the posterior capsule. The extension gap was assessed and additional releases for gap balancing were performed as necessary. It was checked with the gap tar distributor operator. The femoral component was trial was placed and the notch was finished. Trial tibial and femoral components were then placed and the knee placed through a range of motion. Range of motion was [0-130], with good stability throughout the range. The trials were then removed, and the tibia was finished. The bone was prepared with pulsatile lavage, and dried with a sponge. Cement was applied and the final prosthetics placed. Excess cement was removed during and after cement curing. A brief Betadine soak was performed. After confirming there was no extruded cement posteriorly, the final tibial insert was placed. The knee was copiously irrigated and the tourniquet deflated. Hemostasis was obtained with the Bovie. A drain was placed and brought out superolaterally. The capsule was closed with i nterrupted # 1 Vicryl suture. The subcutaneous layer was closed with barbed sutures, and the skin with a running 3-0 V-Lock suture and Surgical glue. An Aquacel Ag dressing was applied and the patient was taken to recovery having tolerated the procedure well. Complications: none Post-operative Condition: stable Disposition: Acute Care Plan for aftercare: The patient will be maintained on a standard total knee replacement protocol with weight bearing as tolerated. The patient will receive aspirin and sequential compression devices for DVT prophylaxis. The patient will be discharged home when safe for the home environment.
[2020-04-30] MEDS: CEFAZOLIN 2 GM/100 ML FROZ.PIGGY IV ×2 (11:54→19:33)
[2020-04-30] MEDS: TRANEXAMIC ACID 1,000 MG VIAL 1000 MG INJ ×2 (12:34→14:34)
--- NOTE | 2020-04-30 12:42 | SUR.OPER ---
Supine on padded OR bed. Pillow under head, arms secured on padded armboards <90 degree abduction. Safety belt across torso. Non-operative leg secured with tape over blanket over lower leg. Operative leg secured in [place]. Foam padded brace at thigh of operative leg.
--- NOTE | 2020-04-30 12:48 | SUR.OPER ---
pt presents with a scrape on the lateral aspect of the left great toe with carranza black skin on top of distal aspect of second third and forth metatarsals and toes
[2020-04-30] MEDS: BUPIVACAINE 0.25% W/ EPI 30 ML VIAL 60 ML INJ (12:53)
[2020-04-30] MEDS: BUPIVACAINE LIPOSOME 266 MG/20 ML VIAL INJ (12:54)
--- NOTE | 2020-04-30 13:22 | PC.NURSE ---
Day shift: Pt not on AC unit at this time 1322.
[2020-04-30] MEDS: LACTATED RINGERS 1,000 ML 100 ML IV ×2 (16:04→16:10)
[2020-04-30] MEDS: IBUPROFEN 400 MG TABLET PO ×2 (16:08→21:28)
[2020-04-30] MEDS: ACETAMINOPHEN 325 MG TABLET 650 MG PO ×2 (16:08→21:23)
[2020-04-30] MEDS: ONDANSETRON 4 MG ODT PO (18:37)
--- NOTE | 2020-04-30 18:40 | PC.NURSE ---
pt arrived in rm 225 from PACU, VSS, Denies pain at this time, dressing to l knee intact and dry, Hemovac to wound clamped until 1700. IV LR initiated at 100ml/hr. Oriented to environment, call light within reach, family at bedside.
[2020-04-30] MEDS: DOCUSATE 100 MG CAPSULE PO (21:23)
[2020-04-30] MEDS: ASPIRIN EC 81 MG TABLET PO (21:23)
[2020-05-01] MEDS: IBUPROFEN 400 MG TABLET PO ×3 (00:39→09:20)
[2020-05-01] MEDS: LACTATED RINGERS 1,000 ML 100 ML IV (00:43)
--- NOTE | 2020-05-01 02:19 | PC.NURSE ---
Pt unable to void. Bladder scan showing 660ml. Straight cathed patient without issues. 100ml urine out of straight cath. Cath removed
[2020-05-01] MEDS: CEFAZOLIN 2 GM/100 ML FROZ.PIGGY IV (04:16)
[2020-05-01 04:51] VITALS: BP 125/70; PULSE 79; RESP 19; TEMP 36.6; O2SAT 94
[2020-05-01 05:14] LABS: Hematocrit 36.2 % (41-53); Hemoglobin 12.4 g/dL (13.5-17.5)
--- NOTE | 2020-05-01 07:42 | PM.PN.1 ---
Subjective Subjective Date Patient Seen: 05/01/20 Time Patient Seen: 07:42 Interval history: López notes that he is doing well is sitting up in the chair he did have some difficulty voiding and had to have an I and O cath that he has been able to void spontaneously since then. His pain is adequately controlled with oral medications. Exam Vital Signs (past 8 hours): - 05/01/20 04:51 Temperature 97.9 F Pulse Rate 79 Respiratory Rate 19 Blood Pressure 125/70 Pulse Oximetry 94 Oxygen Delivery Method Nasal Cannula Oxygen Flow Rate 0 Narrative Exam Narrative: Dressing is dry, he is alert and oriented stable to do an active straight leg raise is calfs are soft bilaterally, he has minimal pain with gentle range of motion Objective Labs Result Diagrams: 05/01/20 04:50 Labs: Laboratory Results - last 24 hr 05/01/20 04:50 Hgb 12.4 L Hct 36.2 L Assessment & Plan Assessment & Plan narrative: Doing well status post left total knee arthroplasty. Plan continue to mobilize with physical therapy today her going to discontinue his drain before he goes home. And remove his Tushar wrap. He is going to do outpatient physical therapy and follow up with me in 10-14 days.
[2020-05-01 07:45] VITALS: BP 144/83; PULSE 85; RESP 18; TEMP 36.7; O2SAT 94
[2020-05-01] MEDS: polyethylene glycoL 3350 17 GM POWD.PACK PO (09:19)
[2020-05-01] MEDS: AMLODIPINE 5 MG TABLET 10 MG PO (09:20)
[2020-05-01] MEDS: ASPIRIN EC 81 MG TABLET PO (09:20)
[2020-05-01] MEDS: ACETAMINOPHEN 325 MG TABLET 650 MG PO (09:20)
[2020-05-01] MEDS: DOCUSATE 100 MG CAPSULE PO (09:21)
[2020-05-01] MEDS: SERTRALINE 50 MG TABLET PO (09:21)
--- NOTE | 2020-05-01 10:52 | PC.NURSE ---
Day shift: Paperwork signed and all questions answered. Pt taken to car driven by his SO via WC by JODI Rock. PATRICE wrap and Aquacel appear CDI. IV and Davon-vac removed and Pt tolerated both very well. Pt has all personal belongings and MD script. LEft unit at approx 1100 and Pt looking forward to getting out of the hospital at this time.
--- NOTE | 2020-05-01 11:28 | PT.IIE ---
Current Diagnoses Unilateral primary osteoarthritis, left knee (04/30/20) Surgery Performed Operation Date: 04/30/20 11:30 Actual Procedures p Total Knee Arthroplasty(Left) - Bernarda Siegel MD Surgical History (Last Updated 04/22/20 @ 08:34 by Inez Zamorano, RN) History of arthroplasty of right knee (Acute 2012) History of colonoscopy with polypectomy (Acute) History of incisional hernia repair (Acute 01/31/17) History of tracheostomy as a child (Acute) Hx of left inguinal hernia repair (Acute) Hx of microdiscectomy (Acute 06/18/14) Hx of right inguinal hernia repair (Acute) Hx of tonsillectomy (Acute) Hx of umbilical hernia repair (Acute) Medical History (Last Updated 04/22/20 @ 09:08 by Inez Zamorano RN) Acute osteomyelitis (Acute 2018) Amputated toe of left foot (Acute 09/19/18) Amputation toe (Chronic) Anxiety (Acute) COPD (chronic obstructive pulmonary disease) (Chronic) DDD (degenerative disc disease) (Acute) Depression (Chronic) Enlarged prostate (Acute) Erectile dysfunction (Acute) History of GI bleed (Acute) Hypertension (Chronic) Neuropathy (Chronic) Osteoarthritis (Acute) Pes planus of left foot (Acute) Type 2 diabetes mellitus with peripheral neuropathy (Acute) Physical Therapy Inpatient Evaluation/Re-Eval M1 PT/OT-IP Prior Functional Status Start: 05/01/20 08:51 Freq: NEEDED Status: Discharge Protocol: Document 05/01/20 11:11 (Rec: 05/01/20 11:28 [id number]) Medical Review Prior Functional Status Medical History Reviewed Yes Diet/Fluid Consistency Regular Communication able to make needs known Mobility and Gait independent with all mobilities. Stated his L knee buckled somtimes but he was very careful about it. Walked 3-10 miles a day at work. Activities of Daily Living and IADL's independent with all ADLs and IADLs. 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 Social History Household Members spouse Living Arrangements House Number of Floors (Floors) Two Floors Number of Stairs To Enter/Railing? Pt lives on bottom floor 5 [address] to main entrance but he uses sidewalk usually without steps to enter. 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 Pt had R TKA years ago and his L 3rd toe amputation early last year. M2 PT-IP Current Condition Start: 05/01/20 08:51 Freq: NEEDED Status: Discharge Protocol: Document 05/01/20 11:11 (Rec: 05/01/20 11:28 [email or web address]) Physical Therapy Current Condition Current Condition Evaluation Date 05/01/20 Treatment Diagnosis L TKA, difficulty in walking Onset Date 04/30/20 Weight Bearing Status Weight Bearing Status Weight Bear as Tolerated M3 PT-IP Subjective Start: 05/01/20 08:51 Freq: NEEDED Status: Discharge Protocol: Document 05/01/20 11:11 HH (Rec: 05/01/20 11:28 [email or web address]) Subjective Physical Therapy Visit Type Type Initial Evaluation Visit Start Time 09:33 Visit Stop Time 10:05 Total Visit Minutes 32 Number of PLANT ATTENDANT Visits 0 Physical Therapy Visit Comments Patient Comments My knee feels good and i am doing all my exercises. Patient Goals to return home with . Therapy Pain Assessment Pain When Pain Assessed During Mobility Pain Present Pain Present Pain Reported Location left knee Intensity 4 Scale Used Numeric (0 - 10) Description Aching,Acute Pain Management Techniques Timing of Activity with Medications M4 PT-IP Mobility and Gait Start: 05/01/20 08:51 Freq: NEEDED Status: Discharge Protocol: Document 05/01/20 11:11 HH (Rec: 05/01/20 11:28 [email or web address]) PT-Transfer Assessment Sit to and From Stand Sit to and from Stand Standby Assistance,Use of Upper Extremities Equipment Transfer Assistive Device Gait Belt,Front Wheeled Walker Orthotic/Prosthetic Devices or Brace: No Transfers Transfer Destination Bed,Chair Transfer Technique Stand Step Pivot Transfer Ability Level of Assist Standby Assistance,Use of Upper Extremities Comments Mobility Comments Pt was up in chair upon PT arrival. He recognized this PT from his last admission. Pt's L knee AROM 8-85 degrees. Pt was able to stand up with staggered stance and FWW. He then started ambulating with 50% WB on L as he stated d/t pain. Pt used a step to pattern to amb in the hallway. He completed approx 210 ft and did progress to step over pattern with up to 70-80% WB on LLE. Pt then safely returned to his room and transferred to his room chair with use of armrests and semi staggered stance. Pt felt confident to go home at this point. Educated pt to practice knee flexion and extension. Call ligth placed within reach after. Gait Assessment Gait Gait Assistance Required: Standby Assistance Distance (Feet) 210 Able to Maintain Weight Bearing Status Yes During Gait Assistive Devices Assistive Device Gait Belt,Front Wheeled Walker Orthotic/Prosthetic Devices or Brace: No Gait Deviations General Gait Pattern Antalgic,Decreased Stride Length,Decreased Feet Clearance,Step-to Gait Factors Limiting Gait Function Factors Limiting Gait Function Decreased Activity Tolerance, Decreased Strength,Difficulty Following Directions,Limited Range of Motion,Pain,Poor Balance Comments Gait Comments see mobility comments. Stair Climbing Assessment Comments Stair Climbing Comments no stpes to enter at home. PT-Balance Assessment Sitting Balance and Reactions Static Sitting Balance Ability Normal Dynamic Sitting Balance Ability Normal Standing Balance and Reactions Static Standing Balance Ability Good Dynamic Standing Balance Ability Good Device Used FWW M5 PT-IP Objective Assessments Start: 05/01/20 08:51 Freq: NEEDED Status: Discharge Protocol: Document 05/01/20 11:11 (Rec: 05/01/20 11:28 [email or web address]) Orientation Orientation/Cognition Level of Alertness Alert Orientation Name,Age,Birthday,Month,Date, Year,Day of Week,Place, Situation Language Function Ability No Deficits Noted Safety Awareness Understands Safety Issues Memory Description No Deficits Noted Gross Range of Motion Upper Extremity ROM Assessment Within Functional Limits Lower Extremity ROM Assessment Left Impaired Impairments 8-85 degrees L knee AROM Strength Upper Extremity Strength Assessment Within Functional Limits Lower Extremity Strength Assessment Left Impaired Hip 4+/5 Knee 3+/5 Ankle 5/5 Coordination Assessment Gross Coordination Gross Coordination WNL Sensation Assessment Sensation Gross Sensation WNL Muscle Tone Muscle Tone WNL Yes M6 PT-IP Treatment Start: 05/01/20 08:51 Freq: NEEDED Status: Discharge Protocol: Document 05/01/20 11:11 (Rec: 05/01/20 11:28 [email or web address]) Physical Therapy Treatment Exercises Exercises Ankle Pumps,Gluteal Sets,Quad Sets,Heel Slides,Straight Leg Raises Education Education Provided Precautions,Weight Bearing Status,Post-Op Packet,Safety M7 PT-IP Assessment and Plan Start: 05/01/20 08:51 Freq: NEEDED Status: Discharge Protocol: Document 05/01/20 11:11 (Rec: 05/01/20 11:28 [email or web address]) PT Summary Assessment and Plan Potential Rehabilitation Potential Excellent Status of Condition at Evaluation Stable Summary Impairments Pain,ROM,Strength,Balance,Bed Mobility,Transfers,Gait, Activity Tolerance Progress Towards Goals Safe For Discharge Assessment Summary This is a low complexity evaluation for this 74 yo active gentleman s/p POD1 L TKA. 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 Upon assessment, pt was able to amb ~210 ft with FWW and progressed from 50% WB to 80% WB during ambulation. Pt has very good understanding of post surgical guidelines and he has no steps to house's entrance. Pt is safe to be dc home with assistance outpatient PT at this point. Frequency of Treatment Frequency Of Treatment Discharge Recommendations To Nursing Amount of Assist Needed Standby Assistance Discharge Recommendations PT Discharge Recommendations Home with Assistance, Outpatient PT Transportation Needs at Discharge Private Vehicle
--- NOTE | 2020-05-01 15:01 | CM.DANOTE ---
Discharge Planning/Care Management DCP: assessment: case received and discussed in Team Rounds this morning. EMR reviewed. Pt is a 74 year old male who admitted for a planned L TKA. A d/c order was in place but PT has not yet worked with pt. Payer:[employer] and Medicare Surgeon: Dr. Yoana Siegel A check in now shows that PT did work with pt, cleared him for d/c to home setting and he left for home at about 1030, before full Morning Rounds was completed. No d/c concerns were noted by the care team members. Advanced directive, confirm from CLINIC Start: 04/30/20 16:20 Freq: Q24H Status: Discharge Protocol: Document 04/30/20 16:20 CW (Rec: 04/30/20 17:26 CW [id number]) Advance Directive, confirm on record Time 17:25 Person contacted spouse Copy received Yes Advanced directive available on record Yes CM Discharge Assessment Start: 05/01/20 14:59 Freq: Status: Active Protocol: Document 05/01/20 14:59 ITV (Rec: 05/01/20 15:00 ITV [id number]) Discharge Planning Assessment Advance Directives? Yes History Provided By Medical Record Prior Living Arrangements House Household Members spouse Is patient alert and oriented? Yes Discharge Plan Home Review Status In Process Pre-Anesthesia Assessment Start: 04/22/20 08:24 Freq: Status: Discharge Protocol: Document 04/22/20 08:24 CAB (Rec: 04/22/20 09:16 CAB [id number]) Pre-Anesthesia Assessment PAC Comment Unable to reach pt for scheduled phone assessment. called back, states no changes to medical/medication history from admit Sep 2018 , no questions/concerns, chart review only. 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 Height 182.88 cm Weight 117.934 kg Body Mass Index (BMI) 35.2 Hx Anesthesia Reactions No: Tracheostomy, vocal cord paralysis Hx Family Anesthesia Reaction No Hx Malignant Hyperthermia No Hx Blood Transfusion Reaction No Anesthesia Review Requested No alcohol intake never alcohol intake frequency 0-2 drinks per day Smoking Status Former smoker Tobacco type cigarettes how long ago did patient quit smoking years Substance Use Type does not use Pain Present Pain Reported Musculoskeletal Symptoms Amputation,Difficulty Walking, Joint Pain Patient is completely paralyzed or No completely immobile Mental Status Oriented to own ability Currently Taking a Beta Beka No Anti-Coagulant Therapy No Has a Gel Coat Sprayer No Cardiac Testing No Hx Pacemaker/ICD No Pacemaker Rep Required? No Urinary Catheter Present No Hx Urinary Self Catheterization No Diabetes Yes HgbA1C 6.3 Date 03/11/20 Hx Drug Resistant Organism Yes: MSSA 2019 3rd toe Presence of External or Internal Medical No Devices Have you had any close contact with Unknown someone diagnosed with COVID-19? Marital Status Lives With spouse Patient Discharge Plan Description Return Home Do You Have Any Spiritual Beliefs That No May Affect Your HC Choices? Do You Have Any Cultural Practices That No May Affect Your HC Choices? Health Care Proxy/Next of Kin Cristofer () Health Care Proxy [phone] Emergency Contact Name Cristofer Kay Emergency Contact Advance Directives? Yes Power of Gluer And Wedger No
== END 2020-05-01 11:14 | disposition home or self-care (01) ==
LOC: OR 11:43 → AC 11:43
PROVIDERS: Admitting Provider Orthopaedic Surgery; Family Provider Family Medicine; PCP Family Medicine; Referring Provider Orthopaedic Surgery; Visit Provider Orthopaedic Surgery
PROC: 0SRD0JZ Replacement of Left Knee Joint with Synthetic Substitute, Open Approach (ICD-10-PCS; CPT 27447; principal; 2020-04-30 11:30)
DX: M17.12 Unilateral primary osteoarthritis, left knee (principal); J44.9 Chronic obstructive pulmonary disease, unspecified; I10 Essential (primary) hypertension
CPT/HCPCS: 27447; 36415; 73560; 82962; 85014; 85018; 94762; 97116; 97161; C1776; G0378; C9290; J0690; J2250; J2274; J2405; J2704; J3010

== ENCOUNTER → 2020-07-13 11:55 | Outpatient (CLI) | payer OTHER, MEDICARE, SELFPAY ==
[2020-04-30 16:10] VITALS: BMI 34.5
[2020-07-13 14:21] LABS: Add Manual Diff / Slide Review NO; Basophils Absolute Auto 0 /uL (0-100); Basophils Percent Auto 0.5 % (0-2); Eosinophils Absolute Auto 100 /uL (0-450); Eosinophils Percent Auto 2.4 % (2-4); Hematocrit 42.4 % (41-53); Hemoglobin 14.3 g/dL (13.5-17.5); Lymphocytes Absolute Auto 1300 /uL (1100-4500); Lymphocytes Percent Auto 20.9 % (25-40); Mean Corpuscular HGB Conc 33.8 % (30-36); Mean Corpuscular Hemoglobin 29.8 PG (26-34); Mean Corpuscular Volume 88.3 fL (80-100); Monocytes Absolute Auto 400 /uL (0-900); Monocytes Percent Auto 7.2 % (3-14); Neutrophils Absolute Auto 4200 /uL (1500-7000); Platelet Count 235 X10^3/uL (150-400); Red Cell Distribution Width 13.2 % (11.6-14.8); White Blood Cell Count 6.1 X10^3/uL (4.5-11.0)
== END ==
PROVIDERS: Family Provider Family Medicine; PCP Family Medicine; Referring Provider Family Medicine; Visit Provider Family Medicine
DX: R59.1 Generalized enlarged lymph nodes (principal)
CPT/HCPCS: 36415; 85025

== ENCOUNTER → 2020-07-31 12:02 | Outpatient (CLI) | payer OTHER, MEDICARE, SELFPAY ==
[2020-04-30 16:10] VITALS: BMI 34.5
--- NOTE | 2020-07-31 12:10 | DI.US.S_ITS ---
PROCEDURE: US THYROID INDICATIONS: neck mass- enlarged node right neck TECHNIQUE: Real-time scanning was performed of the thyroid gland, with image documentation. COMPARISON: None. FINDINGS: Right: Thyroid lobe measures 6.9 x 3.6 x 5.0 cm, and is homogeneous in echotexture. Left: Thyroid lobe measures 4.9 x 2.0 x 2.2 cm, and is homogenous in echotexture. [place]osa hypoechoic nodule adjacent to the posterior aspect of the left thyroid measuring 2.2 x 1.1 x 1.7 cm. Sub 5 mm mid nodule. Isthmus: 5.0 mm thick. Nodule number: 1 Location: Right mid Size: 5.4 x 3.6 x 4.4 cm. Composition: Solid Echogenicity: Heterogeneous Shape: wider than tall. Margins: Smooth Echogenic foci: None Total points: 3 ACR TI-RADS category: Mildly suspicious Nodule number: 2 Location: Left superior Size: 1.1 x 0.7 x 0.7 cm. Composition: Cystic Echogenicity: Anechoic Shape: wider than tall. Margins: Smooth Echogenic foci: None Total points: 0 ACR TI-RADS category: Benign colloid cyst. IMPRESSION: Mildly suspicious large right thyroid nodule measuring 5.4 cm, TR 3. Sonographically directed fine-needle aspiration is recommended. Hypoechoic solid nodule adjacent to the left thyroid gland which may represent a parathyroid adenoma given the sonographic appearance. Recommend correlation with serum calcium levels and if indicated, nuclear medicine parathyroid imaging could be performed. ACR TI-RADS definitions and recommendations: TI-RADS 1 (benign): 0 points. FNA not needed. TI-RADS 2 (not suspicious): 2 points. FNA not needed. TI-RADS 3 (mildly suspicious): 3 points. * FNA if 2.5 cm or larger, follow up if 1.5 cm or larger (at 1, 3, and 5 years). TI-RADS 4 (moderately suspicious): 4-6 points. * FNA if 1.5 cm or larger, follow up if 1 cm or larger (at 1, 2, 3, and 5 years). TI-RADS 5 (highly suspicious): 7 points or more. * FNA if 1 cm or larger, follow up if 0.5 cm or larger (every year for 5 years). Dictated by: Alexander SEPULVEDA Interpreted: Eyal Lewis MD on 07/31/2020 at 14:21 Approved by: Eyal Lewis M.D. on 07/31/2020 at 15:27
== END ==
PROVIDERS: Family Provider Family Medicine; PCP Family Medicine; Referring Provider Surgery; Visit Provider Surgery
DX: E04.2 Nontoxic multinodular goiter (principal)
CPT/HCPCS: 76536

== ENCOUNTER → 2020-08-03 10:10 | Outpatient (CLI) | payer OTHER, MEDICARE, SELFPAY ==
[2020-04-30 16:10] VITALS: BMI 34.5
[2020-08-03 11:01] LABS: COVID19 -Nasal RAPID Negative (Negative)
== END ==
PROVIDERS: Family Provider Family Medicine; PCP Family Medicine; Visit Provider Surgery
DX: Z01.812 Encounter for preprocedural laboratory examination (principal); Z11.59 Encounter for screening for other viral diseases
CPT/HCPCS: 87635; C9803

== ENCOUNTER 2020-08-04 14:50 | Day surgery (SDC) | payer OTHER, MEDICARE, SELFPAY ==
[2020-04-30 16:10] VITALS: BMI 34.5
[2020-08-04] VITALS (7 sets, daily range): BP systolic 115–134; BP diastolic 69–84; PULSE 77–88; RESP 12–18; TEMP 36.7–37; O2SAT 93–95; BMI 34.2
--- NOTE | 2020-08-04 | PATH_ITS ---
[facility] Accession Number: [id number] . 01 Material submitted: . colon - CECAL POLYP . 01 Clinical history: . SCREENING COLONOSCOPY . 02 Diagnosis: Cecum, Polyp, Biopsy: Tubular adenoma. MRV 08/06/2020 1428 Local . 02 Electronically signed: . Marisela Colon MD, Pathologist NPI- [id number] . 01 Gross description: . CECAL POLYP: Received in formalin is 1 fragment(s) of beyer, soft tissue measuring 0.4 x 0.3 x 0.3 cm submitted entirely in 1 cassette(s) /QBJ 08/05/2020 0816 Local . 02 Pathologist provided ICD-10: D12.0 . 02 CPT . 721134 Performed at: 01 [facility] [address] [place] [address], [place], [place] [id number] MD Lloyd Jackson MD Phone: [phone] Performed at: 02 [facility] [address] [place], [place] [id number] MD Marisela Colon MD Phone: [phone]
[2020-08-04] MEDS: SODIUM CHLORIDE 0.9% 1,000 ML 200 ML IV (15:29)
--- NOTE | 2020-08-04 15:49 | PM.PREOP ---
Pre-operative Note COVID-19 COVID-19 status: Negative Result date/Date tested (Pos, Neg/Pending): 08/03/20 Interval Note History & Physical reviewed/Exam performed by Physician: Yes Changes to H&P: No ASA Class (for procedural sedation): III
--- NOTE | 2020-08-04 15:50 | P.OP.ENDO_ITS ---
Operative Date/Time/Diagnoses Date of procedure: 08/04/20 Time of procedure: 15:50 Pre-op diagnosis: history of colon polyps Post-op diagnosis: other (Cecal polyp) Procedure & Clinicians Study performed: Colonoscopy Procedural sedation performed by the endoscopist Biopsy of cecal polyp with Jumbo forceps Same procedure as scheduled: Yes Indications: History of colon polyps, due for surveillance colonoscopy Surgeon: Abby Ly Procedure Notes SCOAP/Timeout: Performed Procedure in detail: The patient was brought to the room and placed in left lateral decubitus position with all bony prominences padded. A time-out was performed and then the patient was given procedural sedation starting with 4 mg of Versed and 100 mcg of fentanyl. Total of 7 mg of Versed and 200 micro g of fentanyl were used for the entire procedure. Vitals were monitored throughout the procedure and remained stable. Once adequately sedated, the procedure was begun. A rectal exam was performed revealing no abnormalities. The colonoscope was then introduced to the rectum and advanced to the cecum in the usual fashion. The cecum was identified by the appendiceal orifice, the mucosal tri- fold, and the ileocecal valve. A small flat polyp was seen in the cecum, and was removed with Jumbo forceps. The scope was then retracted while rotating side to side and examining each mucosal fold. At the conclusion of the procedure retroflexion was performed and small grade 1-2 internal hemorrhoids without stigmata of bleeding were seen. The scope was then withdrawn from the rectum the procedure was concluded. The patient tolerated the procedure well and was transferred to the PACU in stable condition. Scope withdrawal time: 14 Sedation minutes: 31 Findings: polyp Specimen(s): other (Cecal polyp) Complications: none Impression: Cecal polyp Post-procedure Recommendations: Colonscopy in 5 years (Due to history of colon polyps, and new polyp found on this exam) Follow up: as needed Disposition: PACU
[2020-08-04] MEDS: MIDAZOLAM 5 MG/5 ML VIAL IV (16:15)
[2020-08-04] MEDS: fentaNYL 250 MCG/5 ML INJ IV (16:16)
== END 2020-08-04 17:08 | disposition home or self-care (01) ==
PROVIDERS: Family Provider Family Medicine; PCP Family Medicine; Referring Provider Surgery; Visit Provider Surgery
PROC: 0DJD8ZZ Inspection of Lower Intestinal Tract, Via Natural or Artificial Opening Endoscopic (ICD-10-PCS; CPT 45378; principal; 2020-08-04 16:00)
DX: Z12.11 Encounter for screening for malignant neoplasm of colon (principal); Z86.010 Personal history of colon polyps; I10 Essential (primary) hypertension; K64.0 First degree hemorrhoids; D12.0 Benign neoplasm of cecum
CPT/HCPCS: 45380; 99152; 99153; J2250; J3010

== ENCOUNTER 2020-08-05 17:21 | Emergency (ER) | payer OTHER, MEDICARE, SELFPAY ==
[2020-04-30 16:10] VITALS: BMI 34.5
--- NOTE | 2020-08-05 | DI.CT.S_ITS ---
PROCEDURE: CT STROKE INDICATIONS: PRE OP SEIZURE STEMI TECHNIQUE: Noncontrast 4.5 mm thick angled axial sections acquired from the foramen magnum to the vertex, with coronal reformats. For radiation dose reduction, the following was used: automated exposure control, adjustment of mA and/or kV according to patient size. COMPARISON: None. FINDINGS: Image quality: Excellent. CSF spaces: Basal cisterns are patent. No extra-axial fluid collections. The ventricles are symmetric in size and shape. Brain: No acute intracranial hemorrhage or mass effect. There is minimal cerebral volume loss for age, with resultant ventricular and sulcal prominence. There are mild periventricular and deep white matter chronic small vessel ischemic changes. There is intracranial internal carotid artery atherosclerosis. Skull and face: Calvarium and visualized facial bones appear intact, without suspicious lesions. Sinuses: Visualized sinuses and mastoids are clear. IMPRESSION: 1. No acute intracranial abnormality. 2. Findings were discussed with the ordering physician, Dr. Wasserman, by telephone on 08/05/2020 at 4:34 PM ([place] time). This study fulfills neurological imaging criteria for inclusion or exclusion of acute stroke therapies based on available published neurological guidelines. Dictated by: Christos Lucero M.D. on 08/05/2020 at 16:30 Approved by: Christos Lucero M.D. on 08/05/2020 at 16:35
[2020-08-05 15:36] VITALS: BP 138/86; PULSE 87; RESP 20; TEMP 36.4; O2SAT 96; BMI 34.2
[2020-08-05] MEDS: LACTATED RINGERS 1,000 ML 42 ML IV (15:42)
--- NOTE | 2020-08-05 16:12 | PM.PREOP ---
Pre-operative Note COVID-19 COVID-19 status: Negative Result date/Date tested (Pos, Neg/Pending): 08/03/20 Interval Note History & Physical reviewed/Exam performed by Physician: Yes Changes to H&P: No
[2020-08-05] MEDS: ACETAMINOPHEN 325 MG TABLET 975 MG PO (16:18)
--- NOTE | 2020-08-05 17:02 | SUR.OPER ---
PT ARRIVED IN OR. DURING PRE-OXYGENATION PATIENT BEGAN COMPLAINING OF ITCHING AND TINGLING THROUGHOUT HIS BODY. HE BEGAN HAVING BREATHING DIFFICULTIES. ANCEF WAS STOPPED BENADRYL . DR PEACOCK WAS CONSULTED AND DECIDED NOT TO PROCEED WITH THE PROCEDURE. A 12 LEAD EKG WAS OBTAINED. PT TRANSFERRED TO THE ED PER DR HERNÁNDEZ.
[2020-08-05 17:14] LABS: Add Manual Diff / Slide Review NO; Basophils Absolute Auto 0 /uL (0-100); Basophils Percent Auto 0.1 % (0-2); Eosinophils Absolute Auto 0 /uL (0-450); Eosinophils Percent Auto 0.2 % (2-4); Hematocrit 48.8 % (41-53); Hemoglobin 16.4 g/dL (13.5-17.5); Lymphocytes Absolute Auto 3800 /uL (1100-4500); Lymphocytes Percent Auto 63.3 % (25-40); Mean Corpuscular HGB Conc 33.5 % (30-36); Mean Corpuscular Volume 89.4 fL (80-100); Monocytes Absolute Auto 200 /uL (0-900); Monocytes Percent Auto 3.8 % (3-14); Neutrophils Absolute Auto 2000 /uL (1500-7000); Neutrophils Percent Auto 32.6 % (50-75); Platelet Count 264 X10^3/uL (150-400); Red Blood Cell Count 5.46 X10^6/uL (4.5-5.9); Red Cell Distribution Width 13.7 % (11.6-14.8); White Blood Cell Count 6.1 X10^3/uL (4.5-11.0)
[2020-08-05 17:22] LABS: Creatine Kinase 128 U/L (55-170)
[2020-08-05 17:23] LABS: Magnesium 1.8 mg/dL (1.6-2.3)
[2020-08-05 17:24] LABS: Alanine Aminotransferase 32 IU/L (<50); Albumin 3.5 g/dL (3.5-5.0); Albumin Globulin Ratio 1.1 (1.0-2.8); Alkaline Phosphatase 89 U/L (38-126); Aspartate Aminotransferase 41 IU/L (17-59); BUN Creatinine Ratio 16.2 (6-22); Bilirubin Total 0.7 mg/dL (0.2-1.3); Blood Urea Nitrogen 12 mg/dL (9-20); Calcium 8.4 mg/dL (8.4-10.2); Carbon Dioxide 24 mmol/L (22-32); Chloride 104 mmol/L (98-107); Estimated Glomerular Filt Rate > 60.0 mL/min (>60); Globulin 3.1 g/dL (1.7-4.1); Glucose 148 mg/dL (80-110); Sodium 132 mmol/L (137-145); Total Protein 6.6 g/dL (6.3-8.2)
[2020-08-05 17:35] LABS: Troponin I < 0.012 ng/mL (0.01-0.034)
--- NOTE | 2020-08-05 17:35 | DI.RAD.S_ITS ---
PROCEDURE: XR CHEST 1V INDICATIONS: aspiration TECHNIQUE: One view of the chest was acquired. COMPARISON: [facility], CR, XR CHEST 1V, 09/19/2018, 10:56. FINDINGS: Surgical changes and devices: None. Lungs and pleura: Lung volumes are low. Lungs are clear. No pleural effusions or pneumothorax. Mediastinum: Mediastinal contours appear normal. Heart size is normal. Bones and chest wall: No suspicious bony lesions. Overlying soft tissues appear unremarkable. IMPRESSION: Low lung volumes. No acute cardiopulmonary findings. Dictated by: Cynthia Pollard M.D. on 08/05/2020 at 17:49 Approved by: Cynthia Pollard M.D. on 08/05/2020 at 17:49
[2020-08-05 17:37] LABS: HEMOLYSIS 58 (0-50); Potassium 3.6 mmol/L (3.4-5.1)
[2020-08-05 17:38] LABS: CKMB % Relative Index 0.9 % (1.5-5.0); Creatine Kinase MB 1.18 ng/mL (<2.37)
[2020-08-05] MEDS: HEPARIN DRIP 25,000 UNIT/500 ML IV.SOLN 20 UNIT IV (17:41)
[2020-08-05] MEDS: HEPARIN 5,000 UNIT/ML VIAL 5000 UNIT (17:43)
--- NOTE | 2020-08-05 17:51 | PC.NURSE ---
Pt arrived by stretcher with OR nurses,anesthesiologist and Dr Ly with oxygen on patient. Pt was diaphoretic,generalized redness,not following commands. Originally Dr Ly came down to the ED to speak with Dr Lisy montes she was concerned that the pt was having an STEMI. Pt began vomiting after reciving Ancef in the OR with hypotension,diaphoresis,bright red. Pt received Benadryl and steroids in the OR. Dr Wasserman saw pt in the OR and was concerned that the patient may have had a stroke, possible STEMI,possible anaphylaxis or possible seizure. Pt brought to CT with OR staff and Dr Wasserman,Dr Wasserman wanted pt to have stat head CT,. While on CT table pt began vomiting,suctioned him. Angy RN and Kumar RT with pt during head CT managing airway. Pt then brought to room 1,2nd IV started 18G left ac,repeat EKG done,2nd liter NS hung ,5000 bolus of Heparin left AC with Heparin infusion started left ac. Pt had some sputum he was occasionally spitting up which was suctioned. Pt discharged with [facility] STAT STEMI transfer to [facility]. Dr Wasserman spoke with Dr Martel in ED at [facility],Dr Martel accepted pt. OR crew given phone number to [facility] ED to call report on pt.
--- NOTE | 2020-08-05 17:51 | PC.NURSE ---
Pt arrived by stretcher with OR nurses,anesthesiologist and Dr Ly with oxygen on patient. Pt was diaphoretic,generalized redness,not following commands. Originally Dr Ly came down to the ED to speak with Dr Lisy montes she was concerned that the pt was having an STEMI. Pt began vomiting after reciving Ancef in the OR with hypotension,diaphoresis,bright red. Pt received Benadryl and steroids in the OR. Dr Wasserman saw pt in the OR and was concerned that the patient may have had a stroke, possible STEMI,possible anaphylaxis or possible seizure. Pt brought to CT with OR staff and Dr Wasserman,Dr Wasserman wanted pt to have stat head CT,. While on CT table pt began vomiting,suctioned him. Angy RN and Kumar RT with pt during head CT managing airway. Pt then brought to room 1,2nd IV started 18G left ac,repeat EKG done,2nd liter NS hung ,5000 bolus of Heparin left AC with Heparin infusion started left ac. Pt had some sputum he was occasionally spitting up which was suctioned. Pt discharged with [facility] STAT STEMI transfer to [facility]. Dr Wasserman spoke with Dr Martel in ED at [facility],Dr Martel accepted pt. OR crew given phone number to [facility] ED to call report on pt.
--- NOTE | 2020-08-05 17:55 | ED_ITS ---
HPI - General Adult General Time Seen by Provider: 08/05/20 17:54 Source: other (His physicians in the OR.) Limitations: altered mental status History of Present Illness HPI narrative: The patient was seen here yesterday for a routine colonoscopy. He returned today for removal of a large left anterior shoulder lipoma. During the ER care, he received IV Ancef. He developed tightness in the chest. Wheezing was noted. He developed seizure activity. He was rolled to the side, multiple episodes of emesis followed. His blood pressure was variable, low upon my arrival. An EKG done on site showed ST-elevation in the inferior leads. This was on the OR table. Patient is nonresponsive per my arrival, presumably postictal following seizure activity. He developed generalized erythema with this events. He was treated in the OR with IV Benadryl, and Decadron. No epinephrine was given. There was no known history of antibiotic allergies. He was transported urgently to the ER. Head CT was obtained on the way to the ER for concerns of CVA with his event. His full history is unclear to me. He has chronic pain, for which he takes gabapentin. He has no obvious seizure disorder. He has a prior history of tracheostomy as a 14-year-old, due to trauma. He does have known vocal cord paralysis. He has PTSD, and sleep apnea. He does have a history of hypertension. He has no history of coronary artery disease or seizures. He has no known history of anaphylaxis. Recent COVID testing was negative prior to the surgical procedures. Related Data Home Medications Medication Instructions Recorded Confirmed amlodipine 10 mg PO DAILY #0 10/14/11 08/05/20 sertraline [Zoloft] 50 mg PO DAILY 04/29/20 08/05/20 ibuprofen 200 mg PO Q6H PRN 04/30/20 08/05/20 gabapentin 300 mg capsule 300 mg PO QPM 07/13/20 08/05/20 Previous Rx's Medication Instructions Recorded acetaminophen 650 mg PO TID #90 tab 05/01/20 ibuprofen 400 mg PO Q4HR #90 tab 05/01/20 celecoxib 200 mg capsule 200 mg PO DAILY #30 cap 07/13/20 gabapentin 100 mg capsule 100 mg PO BID #60 cap 07/13/20 Allergies Allergy/AdvReac Type Severity Reaction Status Date / Time cefazolin Allergy Severe dypnea Verified 08/05/20 18:06 Review of Systems Review of Systems ROS Unobtainable: Unobtainable due to medical condition Patient History Medical History Acne Acute osteomyelitis (2018) Amputated toe of left foot (09/19/18) Amputation toe Anxiety Chicken pox Chronic back pain Colon polyps (~2013) COPD (chronic obstructive pulmonary disease) (~2014) DDD (degenerative disc disease) Depression Enlarged prostate Erectile dysfunction Facial basal cell cancer (~2018) Foot pain Headache Hematuria History of elevated PSA History of GI bleed (~1999) History of herpes simplex infection Hypertension Lipoma Lymphadenopathy of head and neck Measles Mumps Neuropathy Osteoarthritis Peripheral neuropathy Pes planus of left foot Prediabetes (~2018) Prostate nodule PTSD (post-traumatic stress disorder) Sleep apnea Type 2 diabetes mellitus with peripheral neuropathy Vocal cord paralysis Surgical History History of arthroplasty of right knee (2012) History of cataract removal with insertion of prosthetic lens (~2012) History of colonoscopy with polypectomy History of incisional hernia repair (01/31/17) History of tracheostomy as a child Hx of left inguinal hernia repair Hx of microdiscectomy (06/18/14) Hx of right inguinal hernia repair Hx of tonsillectomy Hx of umbilical hernia repair Family History Father Cancer Diabetes mellitus History of heart disease Hypertension Mother Mental health problem Brother Diabetes mellitus Sister Jaw cancer Breast cancer Sister Mental health problem Sister Cancer Brother Alcoholism Brother Substance abuse Social History marital status: household members: spouse occupational status: employed Smoking Status: Former smoker alcohol intake: current substance use type: does not use Smoking Status: Former smoker alcohol intake frequency: holidays/special occasions only Substance Use Type: does not use and marijuana Exam Initial Vital Signs Initial Vital Signs: Vital Signs Temperature 97.6 F 08/05/20 15:36 Pulse Rate 87 08/05/20 15:36 Respiratory Rate 20 08/05/20 15:36 Blood Pressure 138/86 08/05/20 15:36 Pulse Oximetry 96 08/05/20 15:36 Const Other: Moaning. Writhing around. Not responding. [facility] Head: normocephalic and atraumatic Mouth: oral mucosae normal Throat: posterior oropharynx normal Eyes Pupils: PERRL Neck Neck: No JVD Chest Chest: normal inspection of the chest Cardio Rate: tachycardic Rhythm: regular rhythm Heart Sounds: S1 normal and S2 normal GI Other: Obese. Nontender. Normal bowel sounds. Skin Other: Generalized erythema on arrival, cleaning shortly thereafter. No rash. Neuro Other: Initially unresponsive. Prior departure he has seen a few words. He is moving all extremities on command. Extrem Other: Spontaneous motion is present all extremities. No peripheral edema. Course Course Course Narrative: Symptom onset was approximately 30 minutes prior to the ER evaluation in this patient's care. The patient developed anaphylaxis, then seizure activity. He vomited multiple times. EKG indicated an inferior STEMI. Stat head CT was obtained en route to the ER, there is no evidence of CVA. The patient vomited once again after injuring the CT suite. Generalized erythema was noted. Once there is no evidence of hemorrhagic CVA, heparin was initiated. He had received Decadron as well as Benadryl for anaphylaxis in the OR. In the ER, his erythema was clearing. He did have tachycardia. Systolic pressure in the 80s had improved to 96 systolic. He awoke, apparently coming out of the postictal phase. He spoke a few words but no clear response to questions. He did move all extremities on demand. An airway was considered, with Anesthesiology still present, but his O2 sats improved to 96% on oxygen as he was clinically improving. Epinephrine was still considered, but in the face of an acute MS. he is improving. It was encouraging that his ST elevation had resolved on a second EKG. It is encouraging that he has improved neurologically, yet his condition continues to be critical. The patient was transferred urgently to [facility] as a code STEMI. The case was discussed with ER doctor, Dr. Martel. He was accepted in transfer as a code STEMI. Orders Ordered: ED Orders 08/05/20 16:54 EKG-12 Lead Stat 08/05/20 17:00 CBC Auto Diff [Complete Blood Count AUTO DIFF] Stat Comprehensive Metabolic Panel Stat Magnesium Stat Troponin & CK Cardiac Panel Stat 08/05/20 17:35 Chest [XR chest 1V] Stat Lactated Ringer's (Lactated Ringers) 1,000 mls @ 100 mls/hr IV CONT YODIT Lactated Ringer's (Lactated Ringers) 1,000 mls @ 42 mls/hr IV CONT YODIT Last Admin: 08/05/20 15:42 Dose: 42 mls/hr Documented by: IRENA Discontinued Medications Acetaminophen (Acetaminophen 325 Mg Tablet) 975 mg PO NOW ONE Stop: 08/05/20 09:56 Last Admin: 08/05/20 16:18 Dose: 975 mg Documented by: KLEVER Heparin Sodium (Porcine) (Heparin 5,000 Unit/Ml Vial) 5,000 unit IV NOW ONE; Protocol Stop: 08/05/20 17:43 Cefazolin Sodium 3 gm/ Sodium (Chloride) 100 mls @ 200 mls/hr IV NOW ONE Stop: 08/05/20 08:03 Vital Signs Vital signs: Vital Signs - 8 hr 08/05/20 15:36 Temperature 97.6 F Pulse Rate 87 Respiratory Rate 20 Blood Pressure 138/86 Pulse Oximetry 96 Medical Decision Making Lab Data Result diagrams: 08/05/20 17:00 08/05/20 17:00 Labs: Lab Results 08/05/20 08/05/20 08/05/20 Range/Units 17:00 17:00 17:00 WBC 6.1 (4.5-11.0) X10^3/uL RBC 5.46 (4.5-5.9) X10^6/uL Hgb 16.4 (13.5-17.5) g/dL Hct 48.8 (41-53) % MCV 89.4 (80-100) fL MCH 30.0 (26-34) PG MCHC 33.5 (30-36) % RDW 13.7 (11.6-14.8) % Plt Count 264 (150-400) X10^3/uL Neut % (Auto) 32.6 L (50-75) % Lymph % (Auto) 63.3 H (25-40) % [place] % (Auto) 3.8 (3-14) % Eos % (Auto) 0.2 L (2-4) % Baso % (Auto) 0.1 (0-2) % Neut # (Auto) 2000 (0813-4044) /uL Lymph # (Auto) 3800 (2098-6325) /uL [place] # (Auto) 200 (0-900) /uL Eos # (Auto) 0 (0-450) /uL Baso # (Auto) 0 (0-100) /uL Sodium 132 L (137-145) mmol/L Potassium 3.6 (3.4-5.1) mmol/L Chloride 104 (98-107) mmol/L Carbon Dioxide 24 (22-32) mmol/L BUN 12 (9-20) mg/dL Creatinine 0.74 (0.66-1.25) mg/dL Estimated GFR > 60.0 (>60) mL/min BUN/Creatinine Ratio 16.2 (6-22) Glucose 148 H (80-110) mg/dL Calcium 8.4 (8.4-10.2) mg/dL Magnesium 1.8 (1.6-2.3) mg/dL Total Bilirubin 0.7 (0.2-1.3) mg/dL AST 41 (17-59) IU/L ALT 32 (<50) IU/L Alkaline Phosphatase 89 (38-126) U/L Total Creatine Kinase (55-170) U/L CK-MB (CK-2) (<2.37) ng/mL CK-MB (CK-2) Rel Index (1.5-5.0) % Troponin I (0.01-0.034) ng/mL Total Protein 6.6 (6.3-8.2) g/dL Albumin 3.5 (3.5-5.0) g/dL Globulin 3.1 (1.7-4.1) g/dL Albumin/Globulin Ratio 1.1 (1.0-2.8) 08/05/20 Range/Units 17:00 WBC (4.5-11.0) X10^3/uL RBC (4.5-5.9) X10^6/uL Hgb (13.5-17.5) g/dL Hct (41-53) % MCV (80-100) fL MCH (26-34) PG MCHC (30-36) % RDW (11.6-14.8) % Plt Count (150-400) X10^3/uL Neut % (Auto) (50-75) % Lymph % (Auto) (25-40) % [place] % (Auto) (3-14) % Eos % (Auto) (2-4) % Baso % (Auto) (0-2) % Neut # (Auto) (7683-6932) /uL Lymph # (Auto) (9117-9566) /uL [place] # (Auto) (0-900) /uL Eos # (Auto) (0-450) /uL Baso # (Auto) (0-100) /uL Sodium (137-145) mmol/L Potassium (3.4-5.1) mmol/L Chloride (98-107) mmol/L Carbon Dioxide (22-32) mmol/L BUN (9-20) mg/dL Creatinine (0.66-1.25) mg/dL Estimated GFR (>60) mL/min BUN/Creatinine Ratio (6-22) Glucose (80-110) mg/dL Calcium (8.4-10.2) mg/dL Magnesium (1.6-2.3) mg/dL Total Bilirubin (0.2-1.3) mg/dL AST (17-59) IU/L ALT (<50) IU/L Alkaline Phosphatase (38-126) U/L Total Creatine Kinase 128 (55-170) U/L CK-MB (CK-2) 1.18 (<2.37) ng/mL CK-MB (CK-2) Rel Index 0.9 L (1.5-5.0) % Troponin I < 0.012 (0.01-0.034) ng/mL Total Protein (6.3-8.2) g/dL Albumin (3.5-5.0) g/dL Globulin (1.7-4.1) g/dL Albumin/Globulin Ratio (1.0-2.8) Point of Care Testing Glucose POC 94 Point of care testing: Point of Care Testing Glucose POC 94 Imaging Data Chest x-ray: Radiologist's Impression: [address] [id number] ReportSigned Patient: Mc Kay [facility]#: [id number]: 8Acct:[id number]/Sex: 74 / MDate of Service: 08/05/20Loc: EDAccession Number: [id number] Procedure: XR chest 1V Ordering Provider: Angel Wasserman MD PROCEDURE: XR CHEST 1V INDICATIONS: aspiration TECHNIQUE: One view of the chest was acquired. COMPARISON: [facility], CR, XR CHEST 1V, 09/19/2018, 10:56. FINDINGS: Surgical changes and devices: None. Lungs and pleura: Lung volumes are low. Lungs are clear. No pleural effusions or pneumothorax. Mediastinum: Mediastinal contours appear normal. Heart size is normal. Bones and chest wall: No suspicious bony lesions. Overlying soft tissues appear unremarkable. IMPRESSION: Low lung volumes. No acute cardiopulmonary findings. Dictated by: Cynthia Pollard M.D. on 08/05/2020 at 17:49 CT scan - head: Radiologist's Impression: [address] [id number] Scan ReportSigned Patient: Mc Kay DMR#: [id number]: 8Acct:[id number]/Sex: 74 / MDate of Service: 08/05/20Loc: EDAccession Number: [id number] Procedure: CT Stroke Ordering Provider: Angel Wasserman MD PROCEDURE: CT STROKE INDICATIONS: PRE OP SEIZURE STEMI TECHNIQUE: Noncontrast 4.5 mm thick angled axial sections acquired from the foramen magnum to the vertex, with coronal reformats. For radiation dose reduction, the following was used: automated exposure control, adjustment of mA and/or kV according to patient size. COMPARISON: None. FINDINGS: Image quality: Excellent. CSF spaces: Basal cisterns are patent. No extra-axial fluid collections. The ventricles are symmetric in size and shape. Brain: No acute intracranial hemorrhage or mass effect. There is minimal cerebral volume loss for age, with resultant ventricular and sulcal prominence. There are mild periventricular and deep white matter chronic small vessel ischemic changes. There is intracranial internal carotid artery atherosclerosis. Skull and face: Calvarium and visualized facial bones appear intact, without suspicious lesions. Sinuses: Visualized sinuses and mastoids are clear. IMPRESSION: 1. No acute intracranial abnormality. 2. Findings were discussed with the ordering physician, Dr. Wasserman, by telephone on 08/05/2020 at 4:34 PM ([place] time). This study fulfills neurological imaging criteria for inclusion or exclusion of acute stroke therapies based on available published neurological guidelines. Dictated by: Christos Lucero M.D. on 08/05/2020 at 16:30 Approved by: Christos Lucero M.D. on 08/05/2020 at 16:35 ECG Data Attestation: I personally reviewed and interpreted this ECG as follows: (EKG 1.: Normal sinus rhythm rate 94 beats per minute. First-degree AV block. Inferior STEMI with ST elevation in 2, 3 and AVF, ST depression in V1, V2 and V3. EKG 2. Sinus tachycardia rate 119 beats per minute. LAD. ST depression noted and V2, V3 and V4. Resolution of inferior ST elevation.) Critical Care Time Critical Care Time Critical Care Time: Yes Total Critical Care Time: 30 Attestation: The patient's care was discussed with his treating surgeon and anesthesiologist initially in the OR, and on his ongoing care here in the ER. The patient was never responsive enough for a valid conversation. His surgeon communicated continually with his . I discussed the case with the accepting ER physician at [facility]. The patient was transferred urgently as a candidate for cardiac catheterization. Discharge Plan Departure Patient Disposition: [facility] Clinical Impression: Seizure, Acute ST elevation myocardial infarction (STEMI) of inferior wall Anaphylaxis Qualifiers: Encounter type: initial encounter Qualified Code(s): T78.2XXA - Anaphylactic shock, unspecified, initial encounter Prescriptions: No Action amlodipine 10 MG tablet 10 mg PO DAILY Qty: 0 RF: 0 gabapentin 300 mg capsule 300 mg PO QPM RF: 0 gabapentin 100 mg capsule 100 mg PO BID Qty: 60 RF: 2 celecoxib [Celebrex] 200 mg capsule 200 mg PO DAILY Qty: 30 RF: 1 sertraline [Zoloft] 50 mg Tablet 50 mg PO DAILY RF: 0 ibuprofen 200 mg Capsule 200 mg PO Q6H PRN (Reason: Pain (Scale Score 1-3)) RF: 0 acetaminophen 325 mg Tablet 650 mg PO TID Qty: 90 RF: 0 ibuprofen 400 mg Tablet 400 mg PO Q4HR Qty: 90 RF: 0 Referrals: Shabbir Greenfield, [Primary Care Provider] -
--- NOTE | 2020-08-05 17:55 | PM.EVENT ---
Event Note Date Patient Seen: 08/05/20 Time Patient Seen: 17:55 Event Note: The patient was taken to the operating room for lipoma removal from his left shoulder. I was in the preop area when I was called to the operating room. Per the anesthesiologist the patient had become dyspneic and rigoring shortly after being given Ancef. When I walked into the room he appeared to be vomiting an aspirating, and the anesthesiologist with suctioning his mouth and giving him oxygen. The patient's skin was diffusely pink and he was coughing and moving all 4 extremities, but did not appear to be moving purposefully. The anesthesiologist was primarily taking care for the patient this point, and I stepped out to order an EKG and labs. I contacted the patient's , to let her know what was going on with her . I walked down to the ER in spoke to Dr. Wasserman. He came to see the patient in the operating room, by which point an EKG had been completed. On his review of the EKG he decided the patient would need to go to the ER, and the patient was transported rapidly to the ER from the OR. See Dr. Wasserman's note for documentation of his ER evaluation. Upon completion of his ER evaluation, Dr. Wasserman transferred the patient to [facility] for cardiac evaluation. It appears that he had an anaphylactic reaction to the antibiotic, followed by a seizure, and an GA. I spoke to the patient's again, and updated her on all of this. I recommended that she meet the patient over at the [facility] ER, as he was being transported by EMS to [facility] immediately.
--- NOTE | 2020-08-05 17:56 | PC.NURSE ---
Male Anesthesiologist in OR given [facility] ER number to call report for this patient. Patient is already on his way to [facility].
--- NOTE | 2020-08-05 18:10 | PM.EVENT ---
Event Note Date Patient Seen: 08/05/20 Time Patient Seen: 18:10 Event Note: Patient was here for left shoulder mass excision. Pre-operative anesthesia assessment completed. Notable for well-controlled hypertension with amlodipine, obesity (BMI 34), presumptive sleep apnea ( says he is apneic several times a night, but has not had a sleep study yet), and history of difficult intubation 20 years ago with anesthetics since then without mention of difficulty. He had a colonoscopy yesterday after a 2-day bowel prep, had dinner last night, and had been NPO all of today. 975mg of acetaminophen were given PO in the pre-op area. Pre-op glucose was 94. Plan was GA with and LMA. Patient moved to the OR table, monitors were placed and pre-oxygenation begun. Cefazolin started IV for surgical prophylaxis. A minute into pre-oxygenation patient became agitated, complaining first of itching on his right arm above the IV where the tape was from a failed IV attempt. He was questioning what was in the mask and became further agitated despite reassurance that it was just oxygen. He then complained of whole-body tingling and appeared erythematous. I stopped the cefazolin and disconnected it. About half of the 2g had infused. I then gave him benedryl 50mg and decadron 10mg IV, and quickly put cefazolin as an allergy in his chart. He stopped responding and became rigid. HR was [address] elevation in lead II (only a 3-lead ECG was on). Help was called for. Concern for possible seizure so 2mg midazolam was given IV. He bit his tongue and started having oral frothing. An oral airway was placed and suctioning done with continued O2 saturations in the high 90's. BP was 79/40's. Phenylephrine was given and ephedrine. NIBP readings were difficult because of his continued agitation and thrashing. Labs were drawn and a 12-lead ECG obtained which showed ST elevation in leads II, III and aVF. The surgeon, Dr. Rebolledo had been in contact with the hospitalist and at this point the ED was also called. Patient had bilateral expiratory wheezing. Albuterol MDI was given through the circuit mask. The patient became slightly lucid and complained of needing to urinate. He didn't answer queries of chest pain, but did say that his breathing was still bad. Albuterol nebulizer was started and 5mcg epinephrine given. HR went into the 130's and BP continued to be low 70-80's/40's. Patient was transported to the ED. Question of glucose level, 1/2 amp of D50W was given presumptively. Glucometer reading was then in the 270's. Head CT obtained with no evidence of intracranial bleed. SBAR given to ED physician, EMS personnel and ED physician at [facility]. Patient was saturating 95% and was squeezing my hand on command at transfer. Likely anaphylaxis. Possible seizure. Probable inferior STEMI. Marita GELLER Anesthesiologist
== END 2020-08-05 17:54 | disposition short-term general hospital (02) ==
LOC: ED 17:22
PROVIDERS: Emergency Provider Emergency Medicine; Family Provider Family Medicine; PCP Family Medicine; Referring Provider Surgery; Visit Provider Surgery
DX: I21.19 ST elevation (STEMI) myocardial infarction involving other coronary artery of inferior wall (principal); R56.9 Unspecified convulsions; I95.9 Hypotension, unspecified
CPT/HCPCS: 70450; 71045; 80053; 82550; 82553; 82962; 83735; 84484; 85025; 93005; 99283; 99291; J1100; J1200; J1644; J2250; J2704

== ENCOUNTER → 2020-08-15 10:57 | Outpatient (CLI) | payer OTHER, MEDICARE, SELFPAY ==
[2020-04-30 16:10] VITALS: BMI 34.5
[2020-08-15 12:51] LABS: COVID19 -Nasal RAPID POSITIVE (Negative)
== END ==
PROVIDERS: Family Provider Family Medicine; PCP Family Medicine; Visit Provider Nurse Practitioner
DX: U07.1 COVID-19 (principal)
CPT/HCPCS: 87635

== ENCOUNTER → 2020-08-18 14:46 | Outpatient (CLI) | payer OTHER, MEDICARE, SELFPAY ==
[2020-04-30 16:10] VITALS: BMI 34.5
[2020-08-18 15:52] LABS: COVID19 -Nasal RAPID Negative (Negative)
== END ==
PROVIDERS: Family Provider Family Medicine; PCP Family Medicine; Visit Provider Family Medicine
DX: Z20.828 Contact with and (suspected) exposure to other viral communicable diseases (principal)
CPT/HCPCS: 87635

== ENCOUNTER → 2020-09-01 08:50 | Outpatient (CLI) | payer OTHER, MEDICARE, SELFPAY ==
[2020-04-30 16:10] VITALS: BMI 34.5
--- NOTE | 2020-09-01 08:52 | DI.US.S_ITS ---
PROCEDURE: US FINE NEEDLE ASPIRATION INDICATIONS: RIGHT NODULE TECHNIQUE: The indications, alternatives, benefits, risks, and complications of the procedure were explained to the patient. Written informed consent was obtained and placed in the chart. The thyroid region was examined sonographically and a site was chosen for ultrasound guided percutaneous sampling. The skin was prepared and draped in the usual fashion, and anesthetized with 1% lidocaine infiltrated from the skin down to the thyroid gland. Multiple passes were then performed, with contents emptied into an appropriate pathology specimen container. A bandage was applied to the area of access at completion of the study. COMPARISON: None. FINDINGS: Location(s) of lesion(s) sampled: Right lobe [place]: 25 gauge hypodermic needles. Number of passes: 6 Medications: 1% lidocaine for local anaesthesia. Complications: None. IMPRESSION: Successful ultrasound-guided thyroid nodule fine needle aspiration, with cytology results pending. Please see chart below for management recommendations based on cytology results. [place] [facility] ReportingRecommendationsNon-diagnostic* Repeat US-guided FNA, with on-site cytology evaluation if possible. * Repeated non-diagnostic nodules without high suspicion US features: close observation vs surgical consult. * Consider surgery if nodule has high suspicion US features, grows >20% in 2 dimensions on followup, or patient has clinical risk factors for malignancy. Benign* If nodule has high suspicion US features: repeat US and FNA within 12 months. * If nodule has low to intermediate suspicion US features: repeat US at 12-24 months. If nodule grows (20% increase in at least 2 dimensions, with minimal increase of 2 mm or >50% change in volume), or development of new suspicious US features, then repeat FNA or continue followup. * If nodule has very low suspicion US features: followup US at >24 months. Atypia of undetermined significance, follicular lesion of undetermined significanceRepeat FNA, molecular testing, followup US, or surgical consult.Follicular neoplasm, suspicious for follicular neoplasmSurgical consult; also consider molecular testing. Suspicious for malignancySurgical consult.MalignantSurgical consult. Dictated by: Juanpablo Tai M.D. on 09/01/2020 at 15:23 Approved by: Juanpablo Tai M.D. on 09/01/2020 at 15:24
== END ==
PROVIDERS: Family Provider Family Medicine; PCP Family Medicine; Referring Provider Surgery; Visit Provider Surgery
DX: E04.1 Nontoxic single thyroid nodule (principal)
CPT/HCPCS: 10005

== ENCOUNTER → 2020-09-29 08:59 | Outpatient (CLI) | payer OTHER, MEDICARE, SELFPAY ==
[2020-04-30 16:10] VITALS: BMI 34.5
[2020-09-29 09:31] LABS: Bacteria Urine None Seen
[2020-09-29 10:20] LABS: Appearance Urine UA CLEAR; Bilirubin Urine UA NEGATIVE (NEGATIVE); Color Urine UA YELLOW; Glucose Urine UA NEGATIVE (Negative); Ketones Urine UA NEGATIVE (NEGATIVE); Leukocyte Esterase Urine UA NEGATIVE (NEGATIVE); Nitrite Urine UA NEGATIVE (Negative); Occult Blood Urine UA 1+ (Negative); Protein Urine UA TRACE (Negative); Urobilinogen Urine UA 0.2 E.U./dL (0.2); pH Urine UA 6.5 (4.5-8.0)
[2020-09-29 10:26] LABS: Hemoglobin A1C% w Est Avg Glu 6.6 % (4.0-6.0)
[2020-09-29 10:53] LABS: Culture Indicated Urine Cult Not Indicated; RBC Urine 1-5/HPF (0-5/HPF); Squamous Epithelial Cell Urine 0-1 /HPF (0-5/HPF); WBC Urine 0-1/HPF (0-5/HPF)
[2020-09-29 11:13] LABS: Alanine Aminotransferase 33 IU/L (<50); Albumin Globulin Ratio 1.5 (1.0-2.8); Alkaline Phosphatase 84 U/L (38-126); Aspartate Aminotransferase 30 IU/L (17-59); BUN Creatinine Ratio 21.3 (6-22); Bilirubin Total 0.5 mg/dL (0.2-1.3); Blood Urea Nitrogen 13 mg/dL (9-20); Calcium 8.9 mg/dL (8.4-10.2); Carbon Dioxide 34 mmol/L (22-32); Chloride 101 mmol/L (98-107); Cholesterol 107 mg/dL (140-199); Estimated Glomerular Filt Rate > 60.0 mL/min (>60); Globulin 2.7 g/dL (1.7-4.1); Glucose 120 mg/dL (80-110); HDL Cholesterol 48 mg/dL (40-60); HEMOLYSIS < 15 (0-50); LDL Cholesterol Calculated 44 mg/dL (<100); Potassium 4.3 mmol/L (3.4-5.1); Sodium 136 mmol/L (137-145); Total Protein 6.7 g/dL (6.3-8.2); Triglycerides 77 mg/dL (35-150)
[2020-09-29 11:35] LABS: Free T4, Direct Thyroxine 0.97 ng/dL (0.78-2.19)
[2020-09-29 11:49] LABS: Thyroid Stimulating Hormone 1.18 uIU/mL (0.47-4.68)
== END ==
PROVIDERS: Family Provider Family Medicine; PCP Family Medicine; Referring Provider Family Medicine; Visit Provider Family Medicine
DX: I10 Essential (primary) hypertension (principal); R22.1 Localized swelling, mass and lump, neck; R31.9 Hematuria, unspecified; R73.03 Prediabetes
CPT/HCPCS: 36415; 80053; 80061; 81001; 83036; 84439; 84443

== ENCOUNTER → 2020-10-09 11:02 | Outpatient (CLI) | payer OTHER, MEDICARE, SELFPAY ==
[2020-04-30 16:10] VITALS: BMI 34.5
--- NOTE | 2020-10-09 12:46 | DI.CT.S_ITS ---
PROCEDURE: CT ABDOMEN WO/W CON INDICATIONS: Assess liver mass TECHNIQUE: 4 phase scanning was performed. Non-contrast 5 mm axial sections acquired from the diaphragm to the iliac crests. Following the administration of intravenous contrast, 5 mm thick arterial-phase, portal venous-phase, and 5-minute delayed phase images were acquired through the liver. 5 mm thick coronal and sagittal reformats were performed. For radiation dose reduction, the following was used: automated exposure control, adjustment of mA and/or kV according to patient size. COMPARISON: [facility], CT, CT ANGIO CHEST PE, 08/06/2020, 0:45. FINDINGS: Image quality: Excellent. Lung bases: Lung bases are clear. Heart size is normal. Liver: There are several thin-walled, lobulated hypodense lesions within the liver, the largest at the junction between the left and right lobes measuring about 6.5 cm in greatest diameter. Postcontrast, there is no enhancement of any of these lesions and no evidence of suspicious hypervascular liver mass. Other solid organs: Gallbladder is unremarkable. Biliary system is non dilated. Pancreas is normal in morphology. Spleen is normal in size and enhancement. No adrenal nodules. Both kidneys demonstrate normal size and enhancement, without hydronephrosis or nephrolithiasis. Cm sized renal hypodensities are present bilaterally. There is a probable partially exophytic cortical fatty mass arising from the upper pole of the right kidney posteriorly. Nodes and vessels: No retroperitoneal or mesenteric adenopathy by size criteria. Aorta and inferior vena cava are normal in size. Moderate abdominal aortic atherosclerotic calcification. Bowel and peritoneum: Unenhanced bowel loops are normal in caliber. Diverticulosis is present in the descending colon is present. No free fluid or air. Bones: No suspicious bony lesions. No vertebral body compression fractures. Miscellaneous: There are surgical tacks of a prior ventral hernia repair and partially imaged possible lower abdominal fat containing ventral hernia. IMPRESSION: 1. Several liver cysts. 2. No suspicious liver mass. 3. 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 4. Prior ventral hernia repair. Dictated by: Nayeli Flores M.D. on 10/09/2020 at 13:37 Approved by: Nayeli Flores M.D. on 10/09/2020 at 13:57
== END ==
PROVIDERS: Family Provider Family Medicine; PCP Family Medicine; Referring Provider Family Medicine; Visit Provider Family Medicine
DX: K76.89 Other specified diseases of liver (principal); N28.1 Cyst of kidney, acquired; D17.71 Benign lipomatous neoplasm of kidney
CPT/HCPCS: 74170

== ENCOUNTER → 2020-10-27 09:50 | Outpatient (CLI) | payer OTHER, MEDICARE, SELFPAY ==
[2020-04-30 16:10] VITALS: BMI 34.5
[2020-10-27 10:36] LABS: COVID19 -Nasal RAPID Negative (Negative)
== END ==
PROVIDERS: Family Provider Family Medicine; PCP Family Medicine; Visit Provider Surgery
DX: Z01.812 Encounter for preprocedural laboratory examination (principal); Z20.822 Contact with and (suspected) exposure to COVID-19
CPT/HCPCS: 87635; C9803

== ENCOUNTER → 2020-11-20 09:09 | Outpatient (CLI) | payer OTHER, MEDICARE, SELFPAY ==
[2020-11-04 09:43] VITALS: BMI 34.5
[2020-11-20 11:41] LABS: COVID19 -Nasal RAPID Negative (Negative)
== END ==
PROVIDERS: Family Provider Family Medicine; PCP Family Medicine; Visit Provider Surgery
DX: Z20.822 Contact with and (suspected) exposure to COVID-19 (principal)
CPT/HCPCS: 87635; C9803

== ENCOUNTER 2020-11-23 08:08 | Day surgery (SDC) | payer OTHER, MEDICARE, SELFPAY ==
[2020-04-30 16:10] VITALS: BMI 34.5
[2020-11-04 09:43] VITALS: BMI 34.5
[2020-11-23] VITALS (7 sets, daily range): BP systolic 88–136; BP diastolic 55–79; PULSE 71–91; RESP 12–20; TEMP 36.2–36.9; O2SAT 93–96; BMI 29.9
--- NOTE | 2020-11-23 | PATH_ITS ---
[facility] Accession Number: [id number] . 01 Material submitted: . shoulder - LEFT SHOULDER MASS . 01 Diagnosis: Left Shoulder, Excision: Mature adipose tissue, consistent with lipoma. MRV 11/26/2020 0904 Local . 01 Electronically signed: . Weston Bustillo MD, Dermatopathologist NPI- [id number] . 01 Gross description: . The specimen is received in formalin, labeled left shoulder mass and consists of two beyer-yellow fragments of adipose tissue measuring 8.5 x 7.5 x 4.0 cm in aggregate. The specimen is inked blue and sectioned to reveal beyer-yellow lobulated cut surfaces. Air Quality Technician sections are submitted in cassettes A1-A8. ([id number]) /MRV 11/25/2020 1155 Local . 01 Pathologist provided ICD-10: D17.9 . 01 CPT . 857077 Performed at: [address] [facility] [address], [place], [place] [id number] MD Lloyd Jackson MD Phone: [phone]
--- NOTE | 2020-11-23 07:55 | PM.HP.1 ---
History of Present Illness History of Present Illness Date Patient Seen: 11/23/20 Chief complaint: EXCISION OF LEFT SHOULDER MASS Narrative: This is a 75-year-old man with a left anterior shoulder mass. The mass over his left shoulder, causes him a great deal pain and discomfort, and feels that it is pressing on the shoulder capsule or a nerve. He came in for removal a few months ago, and had a reaction to the antibiotic which led to his case being cancelled and transfer to [facility] for cardiac evaluation. He is back today for removal of the shoulder mass. ROS: Positive for neck masses, decreased exercise tolerance, joint pain, bilateral foot numbness, Thirteen system review is otherwise negative other than as mentioned below and in HPI. PE: GENERAL: Well groomed and cooperative. Appears stated age. Answers questions promptly and appropriately. Vital signs noted. HENT: Normocephalic, atraumatic. Hearing intact. Well-healed midline tracheostomy scar, well-healed right neck incisional scars, firm partially mobile mass in the right lower anterior neck lateral to the thyroid gland, within the lower cervical chain, suspicious for an enlarged lymph node EYES: Conjunctiva pink, sclera white, no periorbital swelling. CARDIOVASCULAR: Regular rate. No pedal edema. RESPIRATORY: Non-tachypneic, breathing comfortably on room air. GASTROINTESTINAL: Abdomen soft and non-distended GENITALURINARY: No flank tenderness. MUSCULOSKELETAL: Equal tone and mass bilaterally. Left shoulder mass: 10 cm by 10 cm fatty subcutaneous mass at the apex of the left shoulder, it is soft and partially mobile, and tender, consistent with subcutaneous lipoma SKIN: Warm, dry, soft, appropriate color for ethnicity. No other lesions, rashes, or wounds. NEURO: Alert and Oriented X 3. No gross sensory deficits, or cognitive issues. PSYCH: Appropriate affect and mood. Patient History Medical History Acne Acute osteomyelitis (2019) Amputated toe of left foot (09/19/18) Amputation toe Anxiety Arthritis Basal cell carcinoma BPH w urinary obs/LUTS Cancer Chicken pox Chronic back pain Colon polyps (~2013) COPD (chronic obstructive pulmonary disease) (~2014) COVID-19 virus detected DDD (degenerative disc disease) Depression Enlarged prostate Erectile dysfunction Facial basal cell cancer (~2018) Family history of prostate cancer in father Foot pain Gross hematuria Headache Heart attack Hematuria History of elevated PSA History of GI bleed (~1999) History of herpes simplex infection Hypertension Inguinal hernia Lipoma Liver mass Lymphadenopathy of head and neck Measles Mumps Neuropathy NSTEMI (non-ST elevated myocardial infarction) Osteoarthritis Peripheral neuropathy Pes planus of left foot Prediabetes (~2018) Prostate nodule PTSD (post-traumatic stress disorder) Sleep apnea Type 2 diabetes mellitus with peripheral neuropathy Umbilical hernia Vocal cord paralysis Surgical History H/O hernia repair H/O prostate biopsy H/O vasectomy History of arthroplasty of right knee (2012) History of back surgery History of cataract removal with insertion of prosthetic lens (~2012) History of colon surgery History of colonoscopy with polypectomy History of incisional hernia repair (01/31/17) History of tracheostomy as a child Hx of left inguinal hernia repair Hx of microdiscectomy (06/18/14) Hx of right inguinal hernia repair Hx of tonsillectomy Hx of umbilical hernia repair Total knee replacement status Family & Social History Family History Father Cancer Diabetes mellitus History of heart disease Hypertension Loud snoring Obesity Hypercholesteremia Mother Mental health problem Loud snoring Anxiety Alcohol abuse Dementia Brother Diabetes mellitus Sister Jaw cancer Breast cancer Sister Mental health problem Sister Cancer Brother Alcoholism Brother Substance abuse Family/Other Heart disease Alcohol abuse Social History: household members spouse Tobacco & Substance use: Tobacco type cigarettes Smoking Status Former smoker alcohol intake current alcohol intake frequency holiday/special occasion Substance Use Type does not use Meds Home Medications and Allergies Home Medications Medication Instructions Recorded Confirmed Type sertraline 50 mg tablet 50 mg PO DAILY #90 tab 08/14/20 11/23/20 Rx amlodipine 10 mg tablet 10 mg PO DAILY #90 tab 09/16/20 11/23/20 Rx blood sugar diagnostic #100 ea 09/28/20 11/03/20 Rx blood-glucose meter #1 ea 09/28/20 11/03/20 Rx tamsulosin 0.4 mg capsule 0.4 mg PO BEDTIME #90 cap 10/21/20 11/03/20 Rx losartan 25 mg tablet 25 mg PO DAILY 10/27/20 11/23/20 History metoprolol succinate 50 mg 50 mg PO DAILY 10/27/20 11/23/20 History tablet,extended release 24 hr rosuvastatin 20 mg tablet 20 mg PO DAILY 10/27/20 11/23/20 History aspirin 325 mg tablet,delayed 325 mg PO DAILY 11/03/20 11/23/20 History release gabapentin 100 mg PO DAILY 11/23/20 11/23/20 History gabapentin 300 mg PO BEDTIME 11/23/20 11/23/20 History tamsulosin 0.4 mg PO BEDTIME 11/23/20 11/23/20 History Allergies Allergy/AdvReac Type Severity Reaction Status Date / Time cefazolin Allergy Severe dypnea, Verified 10/27/20 14:32 seizures, poss NSTEMI Assessment & Plan Assessment and plan (1) Shoulder mass: Status: Acute Assessment & Plan narrative: Risks and benefits of left shoulder mass excision were discussed with the patient. Risk of bleeding, infection, damage to nearby structures, need for additional procedures, scarring, pain, prolonged recovery were discussed with the patient who desires to proceed with surgery COVID-19 COVID-19 status: Negative Result date/Date tested (Pos, Neg/Pending): 11/20/20 Time Spent With Patient Time with patient: 25 - 35 minutes Quality MIPS - Admit Advanced Care Plan / Current Medications Measures: #47 ? Advanced Care Plan Clinician documentation instruction: document at admission. [] I confirmed that the patient's Advance Care Plan is present, code status is documented, or surrogate decision maker is listed in the patient?s medical record. [SATISFIES MIPS PERFORMANCE] If Yes, Stop Here [] The patient?s Advance Care plan is not present because: (select) [MIPS PERFORMANCE EXCEPTION/EXCLUSION] [] I confirmed today that the patient does not wish or was not able to name a surrogate decision maker or provide an Advance Care Plan. [] Hospice care is currently being provided or has been provided this calendar year [] I did NOT confirm today the presence of an Advance Care Plan or surrogate decision maker documented within the patient's medical record. [DOES NOT SATISFY MIPS PERFORMANCE] #130 - Documentation of Current Medications in the Medical Record Clinician documentation instruction: use macro the first time you see a patient. [] I have utilized all available immediate resources to obtain, update, or review the patient?s current medications. [SATISFIES MIPS PERFORMANCE] If Yes, Stop Here [] The patient is not eligible for medication reconciliation; the patient is in an emergent medical situation where delaying treatment would jeopardize the patient?s health. [MIPS PERFORMANCE EXCEPTION/EXCLUSION] [] I did NOT confirm, update or review the patient's current list of medications today. [DOES NOT SATISFY MIPS PERFORMANCE] MIPS - CL Central Venous Catheter Placement Measure: #76 ? Prevention of Central Venous Catheter (CVC) ? Related Bloodstream Infection Clinician documentation instruction: use macro every time you place a central line. [] All elements of Maximal Sterile Barrier Technique, including hand hygiene, skin prep, and sterile ultrasound technique (if used) were followed. [SATISFIES MIPS PERFORMANCE] If Yes, Stop Here [] If ?No?, the medical reason all elements were NOT used for medical reason [] (ex. emergent condition). [] Maximal Sterile Barrier Technique was not followed, no reason provided [DOES NOT SATISFY MIPS PERFORMANCE] MIPS - DC Heart Failure Measures: #5 - Heart Failure (HF): Angiotensin-Converting Enzyme (PATRICE) Inhibitor or Angiotensin Receptor Beka (ARB) Therapy for Left Ventricular Systolic Dysfunction (LVSD) and #8 - Heart Failure (HF): Beta-Beka Therapy for Left Ventricular Systolic Dysfunction (LVSD) Clinician documentation instruction: use macro at every CHF discharge. [] The patient has current or prior documentation of left ventricular ejection fraction (LVEF) less than 40%, or moderate or severely depressed left ventricular systolic function. Answer both: [SATISFIES MIPS PERFORMANCE] [] The patient was prescribed or already taking an Angiotensin-Converting Enzyme (PATRICE) Inhibitor, or Angiotensin Receptor Beka (ARB). [] The patient was prescribed or already taking a beta-beka. If Yes to Both, Stop Here [] Patient not prescribed/taking: [MIPS PERFORMANCE EXCEPTION/EXCLUSION] [] PATRICE or ARB for medical/patient/system reason(s) including [] (ex. allergy, intolerance, contraindication) [] Beta-beka for medical/patient/system reason(s) including [] (ex. allergy, intolerance, contraindication) [] Patient not prescribed/taking: [DOES NOT SATISFY MIPS PERFORMANCE] [] PATRICE or ARB, no reason given [] Beta-beka, no reason given
[2020-11-23] MEDS: LACTATED RINGERS 1,000 ML 100 ML IV (09:22)
[2020-11-23] MEDS: CLINDAMYCIN 900 MG/50 ML PIGGYBACK 50 MG IV (10:01)
[2020-11-23] MEDS: BUPIVACAINE 0.5% W/ EPI (PF) 30 ML VIAL INJ (10:28)
--- NOTE | 2020-11-23 11:02 | P.OP_ITS ---
Operative Date/Time/Diagnoses Date of procedure: 11/23/20 Time of procedure: 11:02 Pre-op diagnosis: Left shoulder mass Post-op diagnosis: same Procedure & Clinicians Procedure: Excision of left shoulder mass, 8 cm x 10 cm x 4 cm Same procedure as scheduled: Yes Indications: Painful shoulder mass, increasing in size, causing paresthesias john n the arm Surgeon: Abby Ly Click Yes if Unassisted: Yes Anesthesia Type: General Operative Notes Findings: Large firm fatty mass with multiple fascial attachment Specimen(s): other (Left shoulder fatty mass) Estimated Blood Loss (mL): 10 Procedure in detail: The patient was brought to the operating room, placed supine on the operating table, and sequential compression devices were placed on both legs and turned on. Appropriate perioperative antibiotics were given. General anesthesia was induced by the anesthesiologist and the patient was intubated with an LMA. The left shoulder was then prepped and draped in sterile fashion, and a surgical time-out was conducted. At this point local anesthetic was injected using 0.25% Marcaine with epi, at the site of the planned incision. A 10 cm oblique curvilinear incision was then made in the skin overlying the mass. Dissection was carried down through the subcutaneous tissue, and circumferentially around the large mass. There were bands of fascia dividing the mass into multiple segments. Each band was taken down using cautery, and the mass was completely excised. I did not enter the shoulder capsule. The capsule was entirely intact. No muscle, ligament, or tendon structures were encountered during the procedure. Hemostasis was achieved using cautery. The incision was is closed in layers using 3-0 Vicryl and 4-0 Monocryl. The skin was sealed with Dermabond. A pressure dressing was placed over the site. The patient was awakened from anesthesia and extubated. [facility] was [facility]. The patient was then transferred to the postanesthesia care unit in stable condition. He tolerated the procedure well. Needle sponge and instrument counts were correct x2 at the end of the case. Complications: none Post-operative Condition: stable Disposition: PACU
--- NOTE | 2020-11-23 11:57 | SUR.PHASEII ---
1140 Spoke with ; she stated that Dr. Ly spoke to her and explained pressure dressing/site. Pt very appreciative and please with his care here.
== END 2020-11-23 11:40 | disposition home or self-care (01) ==
PROVIDERS: Family Provider Family Medicine; PCP Family Medicine; Referring Provider Surgery; Visit Provider Surgery
PROC: (CPT 23071; principal; 2020-11-23 09:45)
DX: D17.1 Benign lipomatous neoplasm of skin and subcutaneous tissue of trunk (principal); I25.2 Old myocardial infarction; I10 Essential (primary) hypertension; G47.33 Obstructive sleep apnea (adult) (pediatric); F43.10 Post-traumatic stress disorder, unspecified; J44.9 Chronic obstructive pulmonary disease, unspecified; G89.29 Other chronic pain; M54.9 Dorsalgia, unspecified; G62.9 Polyneuropathy, unspecified
CPT/HCPCS: 23071; J1100; J2250; J2405; J2704; J3010

== ENCOUNTER → 2020-11-30 08:28 | Outpatient (CLI) | payer OTHER, MEDICARE, SELFPAY ==
[2020-11-26 13:57] VITALS: BMI 34.5
[2020-11-30 09:50] LABS: COVID19 -Nasal RAPID Negative (Negative)
== END ==
PROVIDERS: Family Provider Family Medicine; PCP Family Medicine; Visit Provider Family Medicine Sleep Medicine
DX: Z20.822 Contact with and (suspected) exposure to COVID-19 (principal)
CPT/HCPCS: 87635; 95810

== ENCOUNTER → 2020-12-03 11:22 | Outpatient (CLI) | payer OTHER, MEDICARE, SELFPAY ==
[2020-11-26 13:57] VITALS: BMI 34.5
== END ==
PROVIDERS: Family Provider Family Medicine; PCP Family Medicine; Referring Provider Specialist; Visit Provider Specialist
DX: N40.0 Benign prostatic hyperplasia without lower urinary tract symptoms (principal)
CPT/HCPCS: 36415; 84153

== ENCOUNTER → 2021-01-22 09:20 | Outpatient (CLI) | payer OTHER, MEDICARE, SELFPAY ==
[2020-12-09 10:05] VITALS: BMI 34.5
[2021-01-22 10:32] LABS: COVID19 -Nasal RAPID Negative (Negative)
== END ==
PROVIDERS: Family Provider Family Medicine; PCP Family Medicine; Referring Provider Family Medicine Sleep Medicine; Visit Provider Family Medicine Sleep Medicine
DX: Z20.822 Contact with and (suspected) exposure to COVID-19 (principal)
CPT/HCPCS: 87635; C9803

== ENCOUNTER → 2022-10-14 10:36 | Outpatient (CLI) | payer OTHER, MEDICARE, SELFPAY ==
[2021-02-08 15:25] VITALS: BMI 34.5
[2022-10-14 11:18] LABS: Add Manual Diff / Slide Review NO; Basophils Absolute Auto 0 /uL (0-100); Basophils Percent Auto 0.3 % (0-2); Eosinophils Absolute Auto 300 /uL (0-450); Hematocrit 44.7 % (41-53); Hemoglobin 15.2 g/dL (13.5-17.5); Lymphocytes Absolute Auto 1200 /uL (1100-4500); Lymphocytes Percent Auto 18.5 % (25-40); Mean Corpuscular HGB Conc 33.9 % (30-36); Mean Corpuscular Hemoglobin 30.4 PG (26-34); Mean Corpuscular Volume 89.6 fL (80-100); Monocytes Absolute Auto 400 /uL (0-900); Monocytes Percent Auto 6.7 % (3-14); Neutrophils Absolute Auto 4500 /uL (1500-7000); Neutrophils Percent Auto 70.5 % (50-75); Platelet Count 218 X10^3/uL (150-400); Red Blood Cell Count 4.99 X10^6/uL (4.5-5.9); Red Cell Distribution Width 13.1 % (11.6-14.8); White Blood Cell Count 6.4 X10^3/uL (4.5-11.0)
[2022-10-14 11:26] LABS: Hemoglobin A1C% w Est Avg Glu 5.7 % (4.0-6.0)
[2022-10-14 11:51] LABS: Alanine Aminotransferase 35 IU/L (<50); Albumin Globulin Ratio 1.4 (1.0-2.8); Alkaline Phosphatase 86 U/L (38-126); Aspartate Aminotransferase 31 IU/L (17-59); BUN Creatinine Ratio 25.4 (6-22); Bilirubin Total 0.8 mg/dL (0.2-1.3); Blood Urea Nitrogen 18 mg/dL (9-20); Calcium 8.7 mg/dL (8.4-10.2); Carbon Dioxide 28 mmol/L (22-32); Chloride 101 mmol/L (98-107); Cholesterol 210 mg/dL (140-199); Estimated Glomerular Filt Rate > 60 mL/min (>60); Globulin 2.9 g/dL (1.7-4.1); Glucose 106 mg/dL (80-110); HDL Cholesterol 41 mg/dL (40-60); HEMOLYSIS < 15 (0-50); LDL Cholesterol Calculated 149 mg/dL (<100); Sodium 138 mmol/L (137-145); Total Protein 6.9 g/dL (6.3-8.2); Triglycerides 100 mg/dL (35-150); Uric Acid 6.7 mg/dL (3.5-8.5)
[2022-10-14 12:20] LABS: Prostate Specific Antigen 4.51 ng/mL (0.10-4.00)
== END ==
PROVIDERS: Family Provider Family Medicine; PCP Family Medicine; Referring Provider Family Medicine; Visit Provider Family Medicine
DX: E78.5 Hyperlipidemia, unspecified (principal); I10 Essential (primary) hypertension; N13.8 Other obstructive and reflux uropathy; N40.1 Benign prostatic hyperplasia with lower urinary tract symptoms; R73.03 Prediabetes; Z87.898 Personal history of other specified conditions
CPT/HCPCS: 36415; 80053; 80061; 83036; 84153; 84550; 85025

== ENCOUNTER → 2023-05-19 08:46 | Outpatient (CLI) | payer OTHER, MEDICARE, SELFPAY ==
[2021-02-08 15:25] VITALS: BMI 34.5
[2023-05-19 09:45] LABS: Creatinine Urine Random 121.6 mg/dL
[2023-05-19 10:02] LABS: Microalbumi Creatinin Ratio Ur 13.9 ug/mg CR (<30); Microalbumin Urine Random 1.7 mg/dL (0-1.6)
[2023-05-19 10:31] LABS: Hemoglobin A1C% w Est Avg Glu 5.6 % (4.0-6.0)
[2023-05-19 10:52] LABS: Alanine Aminotransferase 38 IU/L (<50); Albumin 3.9 g/dL (3.5-5.0); Albumin Globulin Ratio 1.4 (1.0-2.8); Alkaline Phosphatase 80 U/L (38-126); Aspartate Aminotransferase 31 IU/L (17-59); BUN Creatinine Ratio 24.1 (6-22); Bilirubin Total 0.8 mg/dL (0.2-1.3); Blood Urea Nitrogen 20 mg/dL (9-20); Calcium 9.1 mg/dL (8.4-10.2); Carbon Dioxide 29 mmol/L (22-32); Chloride 102 mmol/L (98-107); Cholesterol 209 mg/dL (140-199); Estimated Glomerular Filt Rate > 60 mL/min (>60); Globulin 2.8 g/dL (1.7-4.1); Glucose 115 mg/dL (80-110); HDL Cholesterol 44 mg/dL (40-60); HEMOLYSIS < 15 (0-50); LDL Cholesterol Calculated 148 mg/dL (<100); Potassium 4.3 mmol/L (3.4-5.1); Sodium 137 mmol/L (137-145); Total Protein 6.7 g/dL (6.3-8.2); Triglycerides 84 mg/dL (35-150)
[2023-05-19 11:23] LABS: Prostate Specific Antigen 4.19 ng/mL (0.10-4.00)
== END ==
PROVIDERS: Family Provider Family Medicine; PCP Family Medicine; Referring Provider Family Medicine; Visit Provider Family Medicine
DX: R97.20 Elevated prostate specific antigen [PSA] (principal); E11.42 Type 2 diabetes mellitus with diabetic polyneuropathy; E78.5 Hyperlipidemia, unspecified; I10 Essential (primary) hypertension
CPT/HCPCS: 36415; 80053; 80061; 82043; 82570; 83036; 84153

== ENCOUNTER → 2023-10-13 11:05 | Outpatient (CLI) | payer OTHER, MEDICARE, SELFPAY ==
[2021-02-08 15:25] VITALS: BMI 34.5
[2023-10-13 12:39] LABS: Alanine Aminotransferase 33 IU/L (<50); Albumin 3.9 g/dL (3.5-5.0); Albumin Globulin Ratio 1.2 (1.0-2.8); Alkaline Phosphatase 68 U/L (38-126); Aspartate Aminotransferase 33 IU/L (17-59); Bilirubin Total 0.9 mg/dL (0.2-1.3); Blood Urea Nitrogen 18 mg/dL (9-20); Calcium 8.8 mg/dL (8.4-10.2); Carbon Dioxide 30 mmol/L (22-32); Chloride 104 mmol/L (98-107); Cholesterol 184 mg/dL (140-199); Estimated Glomerular Filt Rate > 60 mL/min (>60); Globulin 3.2 g/dL (1.7-4.1); Glucose 95 mg/dL (80-110); HDL Cholesterol 39 mg/dL (40-60); HEMOLYSIS < 15 (0-50); LDL Cholesterol Calculated 124 mg/dL (<100); Potassium 4.3 mmol/L (3.4-5.1); Sodium 139 mmol/L (137-145); Total Protein 7.1 g/dL (6.3-8.2); Triglycerides 107 mg/dL (35-150)
[2023-10-13 13:08] LABS: Prostate Specific Antigen Scrn 4.08 ng/mL (0.1-4.0)
[2023-10-15 09:40] LABS: x Labcorp Estim. Avg Glu (eAG) 131 mg/dL (.); x Labcorp Hemoglobin A1c 6.2 % (4.8-5.6)
== END ==
PROVIDERS: Family Provider Family Medicine; PCP Family Medicine; Referring Provider Family Medicine; Visit Provider Family Medicine
DX: R97.20 Elevated prostate specific antigen [PSA] (principal); E11.42 Type 2 diabetes mellitus with diabetic polyneuropathy; E78.5 Hyperlipidemia, unspecified; N40.1 Benign prostatic hyperplasia with lower urinary tract symptoms; N13.8 Other obstructive and reflux uropathy; Z12.5 Encounter for screening for malignant neoplasm of prostate
CPT/HCPCS: 36415; 80053; 80061; 83036; G0103

== ENCOUNTER → 2024-09-27 15:06 | Outpatient (CLI) | payer OTHER, MEDICARE, SELFPAY ==
[2021-02-08 15:25] VITALS: BMI 34.5
--- NOTE | 2024-09-27 15:09 | DI.MRI.S_ITS ---
PROCEDURE: MR SHOULDER RT WO CON INDICATIONS: R/o rotator cuff tear TECHNIQUE: Noncontrast oblique coronal T2 fast spin echo with fat saturation, oblique sagittal T1 spin echo and T2 fast spin echo with fat saturation, axial T1 spin echo and T2 fast spin echo with fat saturation through the shoulder. COMPARISON: [facility], CR, XR SHOULDER 2+ VIEWS RIGHT, 09/16/2024, 13:26. FINDINGS: Image quality: Excellent. Rotator cuff: High-grade partial bursal sided tearing of the supraspinatus tendon at the distal insertion measuring 10 mm in anterior-posterior dimension. Moderate infraspinatus tendinosis. Teres minor tendon is intact. Moderate to severe subscapularis tendinosis with low-grade partial intrasubstance tearing at the superior insertion. Grade 2 fatty infiltration of the teres minor muscle is suspicious for mild chronic denervation changes. No mass is seen along the course of the axillary nerve. Rotator cuff musculature is otherwise normal in bulk. Bones and bursae: No acute trabecular bone injury. Chronic traction cystic changes are seen at the posterior superior humeral head and the greater and lesser tuberosities near the rotator cuff tendon insertions. Mild degenerative spurring in the glenoid rim. Moderate to severe degenerative changes at the acromioclavicular joint subchondral cystic changes, subchondral edema, marginal osteophyte formation. Small amount of fluid in the subacromial/subdeltoid bursa. Small glenohumeral effusion. Capsule and soft tissues: Mild labral degeneration. No acute displaced labral tear. Tendinosis and partial intrasubstance tearing of the proximal biceps long head tendon. There is partial effacement of fat signal in the rotator interval. Glenohumeral ligaments are grossly intact IMPRESSION: 1. At least high-grade partial bursal sided tearing of the supraspinatus tendon at the distal insertion measuring 10 mm in anterior-posterior dimension. Moderate supraspinatus and infraspinatus tendinosis. 2. Moderate to severe subscapularis tendinosis with foci of low-grade partial intrasubstance tearing at the distal insertion. 3. Grade 2 fatty infiltration of the teres minor muscle is suspicious for mild chronic denervation changes. No mass is seen along the course of the axillary nerve. 4. Partial intrasubstance tearing of the proximal biceps long head tendon superimposed on chronic tendinosis. 5. Moderate to severe acromioclavicular joint osteoarthrosis. 6. Small subacromial/subdeltoid bursal effusion. Small glenohumeral effusion. Approved by: Christos Lucero M.D. on 09/27/2024 at 21:44
== END ==
PROVIDERS: Family Provider Family Medicine; PCP Family Medicine; Referring Provider Orthopaedic Surgery; Visit Provider Orthopaedic Surgery
DX: M25.511 Pain in right shoulder (principal); M75.111 Incomplete rotator cuff tear or rupture of right shoulder, not specified as traumatic; S46.111A Strain of muscle, fascia and tendon of long head of biceps, right arm, initial encounter; M19.011 Primary osteoarthritis, right shoulder; M25.411 Effusion, right shoulder
CPT/HCPCS: 73221

== ENCOUNTER → 2025-01-20 09:42 | Outpatient (CLI) | payer MEDICARE, SELFPAY ==
[2021-02-08 15:25] VITALS: BMI 34.5
[2025-01-20 10:44] LABS: BUN Creatinine Ratio 19.5 (6-22); Blood Urea Nitrogen 16 mg/dL (9-20); Calcium 9.1 mg/dL (8.4-10.2); Carbon Dioxide 28 mmol/L (22-32); Chloride 102 mmol/L (98-107); Cholesterol 133 mg/dL (140-199); Estimated Glomerular Filt Rate > 60 mL/min (>60); Glucose 101 mg/dL (70-99); HDL Cholesterol 45 mg/dL (40-60); HEMOLYSIS < 15 (0-50); LDL Cholesterol Calculated 74 mg/dL (<100); Potassium 4.3 mmol/L (3.4-5.1); Sodium 138 mmol/L (137-145); Triglycerides 72 mg/dL (35-150)
== END ==
PROVIDERS: PCP Family Medicine; Referring Provider Internal Medicine Interventional Cardiology; Visit Provider Internal Medicine Interventional Cardiology
DX: I25.10 Atherosclerotic heart disease of native coronary artery without angina pectoris (principal)
CPT/HCPCS: 36415; 80048; 80061

== ENCOUNTER → 2025-09-02 16:04 | Outpatient (CLI) | payer MEDICARE, SELFPAY ==
[2021-02-08 15:25] VITALS: BMI 34.5
--- NOTE | 2025-09-02 16:06 | DI.RAD.S_ITS ---
PROCEDURE: XR FOOT LT 2V INDICATIONS: fall @ 1 week ago, pain top of foot TECHNIQUE: 3 views of the foot were acquired. COMPARISON: [facility], CR, XR FOOT LT MIN 3V, 12/08/2018, 13:48. FINDINGS: Bones: No fractures or dislocations. No suspicious bony lesions. Diffuse tarsometatarsal and intertarsal joint space narrowing and osteophytes. Soft tissues: No tibiotalar joint effusion. Achilles tendon appears normal. IMPRESSION: No acute bony abnormality. Dictated by: Imelda Felder M.D. on 09/02/2025 at 17:11 Approved by: Imelda Felder M.D. on 09/02/2025 at 17:13
--- NOTE | 2025-09-02 16:06 | DI.RAD.S_ITS ---
PROCEDURE: XR TOE LT MIN 2V INDICATIONS: wound between 4/5 digit x 1 mo TECHNIQUE: 3 views of the 5th toe(s) acquired. COMPARISON: [facility], CR, XR FOOT LT 2V, 09/02/2025, 16:27. FINDINGS: Bones: No acute fracture or dislocation. Extensive midfoot degenerative disease. Osteopenia is noted. This limits evaluation for erosions and destructive osseous process. Relative decreased density noted in the medial and lateral 5th metatarsal head and at the medial 5th proximal base. Cortical margins of the medial 5th metatarsal head are poorly defined. Soft tissues: No radiopaque foreign bodies. Soft tissue swelling centered at the 5th MTP joint. IMPRESSION: No acute fracture. Soft tissue swelling centered at the 5th MTP joint. Periarticular osteopenia or erosions noted at the mediolateral aspect of the 5th metatarsal head and at the medial base of the 5th proximal phalanx. Developing erosions not excluded. As such, osteomyelitis remains on the differential. Confirmation with MRI as needed. Dictated by: Imelda Felder M.D. on 09/02/2025 at 16:54 Approved by: Imelda Felder M.D. on 09/02/2025 at 16:58
[2025-09-02 17:08] LABS: Add Manual Diff / Slide Review NO; Hematocrit 40.9 % (41-53); Hemoglobin 14.0 g/dL (13.5-17.5); Lymphocytes Absolute Auto 1600 /uL (1100-4500); Mean Corpuscular HGB Conc 34.2 % (30-36); Mean Corpuscular Hemoglobin 31.1 PG (26-34); Mean Corpuscular Volume 91.1 fL (80-100); Platelet Count 219 X10^3/uL (150-400)
[2025-09-02 17:41] LABS: Alanine Aminotransferase 30 IU/L (<50); Albumin 4.2 g/dL (3.5-5.0); Albumin Globulin Ratio 1.6 (1.0-2.8); Alkaline Phosphatase 76 U/L (38-126); Blood Urea Nitrogen 14 mg/dL (9-20); Calcium 9.2 mg/dL (8.4-10.2); Carbon Dioxide 28 mmol/L (22-32); Chloride 101 mmol/L (98-107); Estimated Glomerular Filt Rate > 60 mL/min (>60); Globulin 2.6 g/dL (1.7-4.1); Glucose 89 mg/dL (70-99); HEMOLYSIS < 15 (0-50); Potassium 4.2 mmol/L (3.4-5.1); Sodium 138 mmol/L (137-145); Total Protein 6.8 g/dL (6.3-8.2)
[2025-09-02 17:42] LABS: Hemoglobin A1C% w Est Avg Glu 5.7 % (4.0-6.0)
== END ==
PROVIDERS: PCP Family Medicine; Referring Provider Physician Assistant; Visit Provider Physician Assistant
DX: E11.621 Type 2 diabetes mellitus with foot ulcer (principal); L08.9 Local infection of the skin and subcutaneous tissue, unspecified; M79.672 Pain in left foot; L97.509 Non-pressure chronic ulcer of other part of unspecified foot with unspecified severity
CPT/HCPCS: 36415; 73620; 73660; 80053; 83036; 85025; 85651; 86140